=== PATIENT | female | born 1970 | race Caucasian/White ===

== ENCOUNTER 2021-09-29 14:02 | Emergency (ER) | payer MEDICARE, MEDICAID, SELFPAY ==
--- NOTE | ~2021-09-29 | CT_ITS ---
EXAMINATION: CT brain wo con EXAM DATE: 09/29/2021 14:14 INDICATION: AMS,Found Down,Last Normal X1hr Ago,Rt Side Weakness . TECHNIQUE: Spiral CT of the head was performed without contrast. Axial, coronal and sagittal images were reviewed. The dose-length product (DLP) for this examination was 681.00 mGy-cm. The exposure w as tailored according to patient size, and iterative reconstruction (ASIR) was used as additional dos e reduction technique. There is no prior study for comparison. FINDINGS: There is no acute intraparenchymal hemorrhage. Minimal microangiopathy. No evidence of intr aparenchymal brain mass lesion. No evidence of acute infarction. There is no mass effect or midline shift. The ventricles are normal in size. There are no extra-axial collections. There are no acut e calvarial fractures. The orbits are unremarkable. Soft tissue is unremarkable. The visualized sin uses and mastoid air cells are well aerated. IMPRESSION: No acute intracranial findings. As per stroke protocol, I called these results, discussed with Gio Vuong MD at 09/29/2021 14: 21 CDT. Reviewed, dictated and finalized at location A. IMPRESSION: No acute intracranial findings. As per stroke protocol, I called these results, discussed with Gio anthony MD at 09/29/2021 14:21 CDT.
--- NOTE | ~2021-09-29 | XR_ITS ---
EXAMINATION: XR chest 1V portable DATE: 09/29/2021 14:27 INDICATION: Shortness of breath. Cerebral vascular accident. TECHNIQUE: A single frontal view of the chest was obtained. COMPARISON: Chest 2 views 07/19/2014 FINDINGS: The chest demonstrates clear lungs without pneumonia, pleural effusion, or pneumothorax. Th e heart size is normal. There are changes of anterior fusion procedure in cervical spine. IMPRESSION: 1. No acute cardiopulmonary disease. Reviewed, dictated and finalized at location B.
--- NOTE | 2021-09-29 14:06 | ECG_ITS ---
Measurements Intervals [place] Rate: 70 P: 77 VA: 181 QRS: 71 QRSD: 86 T: 54 QT: 374 QTc: 406 Interpretive Statements SINUS RHYTHM BASELINE ARTIFACT NORMAL ECG NO PREVIOUS ECG AVAILABLE FOR COMPARISON Electronically Signed On 09-29-2021 17:44:39 CDT by Shayne Selby M.D.
[2021-09-29 14:13] LABS: Basophils Absolute Auto 0.05 K/mm3 (0.00-0.10); Basophils Percent Auto 0.8 % (0.0-1.0); Eosinophils Absolute Auto 0.08 K/mm3 (0.02-0.50); Eosinophils Percent Auto 1.2 % (1.0-6.0); Hematocrit 39.2 % (35.0-49.0); Hemoglobin 12.9 g/dL (12.0-15.0); Immature Granulocyte Absolute 0.01 K/mm3 (0.00-0.00); Immature Granulocyte Percent A 0.2 % (0.0-0.0); Lymphocytes Absolute Auto 1.54 K/mm3 (1.10-4.50); Lymphocytes Percent Auto 23.8 % (18.0-42.0); Mean Corpuscular HGB Conc 32.9 g/dL (32.0-36.0); Mean Corpuscular Hemoglobin 32.3 pg (27.0-31.0); Mean Platelet Volume 11.3 fl (9.2-11.8); Monocytes Absolute Auto 0.39 K/mm3 (0.10-0.90); Neutrophils Absolute Auto 4.4 K/mm3 (1.7-7.2); Platelet Count Result 169 K/mm3 (150-420); Red Cell Distribution Width 13.5 % (11.6-14.4); White Blood Count 6.5 K/mm3 (4.8-10.8)
[2021-09-29 14:15] VITALS: BP 108/74; PULSE 69; RESP 20; TEMP 36.6; O2SAT 98
[2021-09-29 14:25] LABS: Glucose Point of Care 327 mg/dl (65-105)
[2021-09-29 14:25] LABS: Partial Thromboplastin Time 20.5 SEC (23.90-30.70); Prothrombin Time 10.8 Seconds (9.50-12.10)
[2021-09-29 14:31] LABS: Alanine Aminotransferase 21 U/L (14-59); Albumin Level 3.5 g/dL (3.4-5.0); Alkaline Phosphatase 102 U/L (46-116); Anion Gap 5 mmol/L (8-16); Aspartate Amino Transferase 13 U/L (15-37); Bilirubin,Total 0.4 mg/dL (0.00-1.00); Blood Urea Nitrogen 23 mg/dL (7-18); Carbon Dioxide 31 mmol/L (21-32); Chloride 102 mmol/L (98-108); Estimated CRCL calculation 63 ml/min; Estimated Glomerular Filt Rate 55; Glucose 114 mg/dL (70-99); Osmolality Calculated 290 mOsm/kg (285-295); Potassium 4.2 mmol/L (3.5-5.1); Sodium 138 mmol/L (136-145); Total Protein 6.4 g/dL (6.4-8.2)
[2021-09-29] MEDS: SODIUM CHLORIDE 0.9% IV 500 ML 999 ML IV CONT (14:31)
[2021-09-29 14:43] LABS: Base Excess ABG 0.1 mmol/L (0-2); HCO3 ABG 24.5 mmol/L (23-29); Oxygen Saturation ABG 94.5 % (95-97); Oxyhemoglobin 87.9 % (94-100); PCO2 ABG 39.3 mmHg (35-45); PO2 ABG 69.9 mmHg (80-90); Total Hemoglobin 13.7 g/dL (12.0-18.0); pH ABG 7.41 (7.35-7.45)
[2021-09-29 14:44] LABS: Device ROOM AIR; Modified Allen's Test Pass; Site Drawn RIGHT RADIAL
[2021-09-29] MEDS: methylPREDNISolone SOD SUCC 125 MG VIAL IV PUSH (14:52)
--- NOTE | 2021-09-29 14:55 | ED.NEUROSD ---
HPI - Neuro Symptoms/Deficit General Chief Complaint: Suspected CVA Stated Complaint: AMBULANCE Time Seen by Provider: 09/29/21 14:04 Source: patient, EMS and RN notes reviewed Mode of arrival: EMS Limitations: other (mild memory loss and increasing speech difficulty and aphasia. ) History of Present Illness Onset (ago): hour(s) (1) Last Observed Normal: 13:00 Location: speech, right arm and right leg History of same: Yes Severity: moderate Quality: weak, numb and tingling Relieving factors: none Exacerbating factors: none Context: sudden onset and recent fall Associated symptoms: confusion and weakness Treatments Prior to Arrival: none and oxygen Related Data Allergies Allergy/AdvReac Type Severity Reaction Status Date / Time gabapentin Allergy Intermediate SEIZURES Verified 11/28/16 15:12 Penicillins Allergy Mild Unknown Verified 09/29/21 15:42 Iodine and Iodide Containing Allergy Difficulty Verified 09/29/21 15:42 Produc Breathing Review of Systems Review of Systems: All systems reviewed & are unremarkable except as noted in HPI and below PMFSH Past Medical History Medical History (Updated 09/29/21 @ 15:45 by Gio Vuong MD) CVA (cerebral vascular accident) Exam Const: General: cooperative, no acute distress and anxious Nutritional Appearance: obese Orientation/consciousness: oriented to person and oriented to place Limitations: no limitations HENMT: Head: normocephalic and atraumatic Ears: TM's normal bilaterally and EAC's normal General nose exam: Normal external nose present and Normal nares present Face and sinus: normal facial exam and sinuses nontender Mouth: Yes moist mucous membranes Throat: posterior oropharynx normal Eyes: General: appearance normal, both eyes and all related structures Visual Bang[place]: normal visual bangura by confrontation Periorbital: periorbital findings normal Eyelids: eyelids normal Conjunctivae: conjunctivae normal Sclera: sclerae normal Cornea: corneas normal Pupils: Equal, round and reactive pupils present and Pupils normal by confrontation EOM: EOMs intact bilaterally Neck: Neck: normal visual inspection, full ROM, no lymphadenopathy and no meningeal signs Chest: Chest palpation & inspection: normal inspection of the chest Resp: Effort & Inspection: normal respiratory effort and able to speak in complete sentences (pt speech gradually worsened in the ED, as did her mild aphasia.) Auscultation: clear to auscultation bilaterally Cardio: Jugular venous distension: no JVD Palpation: normal PMI Rate: regular rate Rhythm: regular rhythm Peripheral pulses: Peripheral pulses 2+ throughout GI: GI Palp: No abdominal tenderness and Yes Soft to palpation Auscultation: normal bowel sounds Back/Spine/Pelvis: Back: no CVA tenderness Cervical Spine: cervical ROM normal Thoracic/Lumbar Spine: thoraco-lumbar ROM normal Skin: General skin exam: normal color and turgor normal Neuro: General: oriented to person, oriented to place, no meningeal signs, CN's II-XI intact bilaterally, confusion and Unable to assess gait Cranial nerves: Yes Equal, round and reactive pupils present, Yes Normal accommodation reflex present, Yes Bilaterally intact EOM present, Yes Normal facial strength present and Yes facial symmetry Cognition (Neuro): abnormal cognition (mild memory loss and increasing speech difficulty.) Speech: aphasia Motor exam (neuro): Other motor observations present (RUL 2/5; RLL 1/5) Sensory Exam: normal sensation Extrem: General: normal to inspection, capillary refill normal, normal exam except as noted, no pedal edema and no calf tenderness Psych: Appearance: grossly normal and well kempt Mental Status: mental status grossly normal Speech and movement: Slowed speech present (Psych) Affect: Sad affect present Attitude: cooperative Thought process: Normal thought process present Thought content: Yes Normal thought content present Course Course Emergency
--- NOTE | 2021-09-29 14:57 | PC.NURSE ---
Spoke with patients sister Kristi and informed her pt will be transferred to [facility] in [place].
[2021-09-29 15:01] LABS: Add Urine Microscopic? YES; Appearance Urine Clear (Clear); Bilirubin Urine Negative (Negative); Blood Urine Negative (Negative); Color Urine Light Yellow (Yellow); Glucose Urine UA Negative (Negative); Ketones Urine Negative (Negative); Leukocyte Esterase Ur 1+ (Negative); Nitrate Urine Positive (Negative); Protein Urine Negative (Negative); Urobilinogen Urine 0.2 mg/dL (0.2-1.0); pH Urine 5.5 (5.0-8.0)
[2021-09-29 15:06] LABS: RBC Urine None seen /hpf (0-2)
[2021-09-29 15:08] LABS: Bacteria Urine 3+ /hpf; Squamous Epithelial Cell Urine None seen /hpf (Few); WBC Urine 21-30 /hpf (0-3)
[2021-09-29 15:14] LABS: Glucose Point of Care 93 mg/dl (65-105)
[2021-09-29 15:45] VITALS: BP 128/73; PULSE 75; RESP 20; O2SAT 98
--- NOTE | 2021-09-29 16:04 | PC.NURSE ---
1545 PT LEFT [facility]IA [facility] WITH NS RUNNING AT 999/HR AND TPA RUNNING AT 71.4/HR
== END 2021-09-29 15:45 | disposition short-term general hospital (02) ==
PROVIDERS: Emergency Provider Emergency Medicine; PCP Family Medicine
DX: I63.30 Cerebral infarction due to thrombosis of unspecified cerebral artery (principal)
CPT/HCPCS: 36415; 36600; 37195; 70450; 71045; 80053; 81001; 82805; 82948; 84484; 85025; 85610; 85730; 93005; 96361; 96374; 99285; J2930; J2997; J7040

== ENCOUNTER 2022-04-21 09:57 | Emergency (ER) | payer MEDICARE, MEDICAID, SELFPAY ==
--- NOTE | ~2022-04-21 | XR_ITS ---
EXAMINATION: XR humerus RT INDICATION: Right humerus pain TECHNIQUE: Two views of the right humerus are obtained on three radiographs. COMPARISON: None available FINDINGS: Bone alignment is normal. There is no fracture. There is lateral soft tissue swelling of th e arm. IMPRESSION: 1. No acute osseous abnormality. Reviewed, dictated and finalized at location B. ING MACHINE REFILLER
--- NOTE | ~2022-04-21 | CT_ITS ---
EXAMINATION: CT brain wo con INDICATION: Head injury COMPARISON: 09/29/2021 TECHNIQUE: Standard unenhanced head CT. The dose-length product (DLP) was 605.33 mGy-cm. The mA was a djusted according to patient size. Iterative reconstruction technique was employed. FINDINGS: There is no intracranial hemorrhage, acute infarction, or abnormal mass lesion. The ventric les are normal. There is no abnormal mass effect or midline shift. The craig-white matter differentiat ion is normal. The basal cisterns are patent. The orbits are normal. The paranasal sinuses, mastoids and calvarium are normal. IMPRESSION: 1. No acute intracranial abnormality. Reviewed, dictated and finalized at location B. NCIAL SERVICES REP
--- NOTE | ~2022-04-21 | XR_ITS ---
EXAMINATION: XR hip RT 2V w AP pelvis INDICATION: Right hip pain after fall TECHNIQUE: AP view the pelvis and two views of the right hip are obtained. COMPARISON: None available FINDINGS: Bone alignment is normal. There is no fracture. There is mild osteoarthritis of the hip. So ft tissue swelling is seen laterally overlying the hip. Phleboliths are noted in the pelvis. IMPRESSION: 1. Mild osteoarthritis without acute osseous abnormality. Reviewed, dictated and finalized at location B. K PILER
--- NOTE | ~2022-04-21 | XR_ITS ---
EXAMINATION: XR shoulder RT min 2V INDICATION: Right shoulder pain TECHNIQUE: Four views of the right shoulder are submitted. COMPARISON: None FINDINGS: Normal alignment. No fracture. There is mild osteoarthritis of the glenohumeral and acromio clavicular joints. Soft tissues are unremarkable. IMPRESSION: 1. Osteoarthritis without acute osseous abnormality. Reviewed, dictated and finalized at location B. MER AND BORER MACHINE OPERATOR
[2022-04-21 10:05] VITALS: BP 133/77; PULSE 114; RESP 18; TEMP 37.6; O2SAT 95
[2022-04-21 10:10] VITALS: BP 133/77; PULSE 110; RESP 18; TEMP 37.6; O2SAT 96
--- NOTE | 2022-04-21 10:22 | ED.FALL ---
HPI - Fall General Chief Complaint: Fall Stated Complaint: fell couple days ago right side of forehead tender Time Seen by Provider: 04/21/22 10:05 Source: patient Mode of arrival: ambulatory Limitations: no limitations History of Present Illness HPI Narrative: this is a 51-year-old female with a history of CVA currently on Plavix and aspirin also with history of bipolar disorder had a fall while she was at the [facility] care patient is unaware but does not think she lost consciousness is having a right-sided temporal headache with some right-sided shoulder and right-sided hip pain has good range of motion, otherwise no shortness of breath no fever chills no chest pain no flank pain no abdominal pain no prolonged down time. complaint: fall Onset (ago): day(s) Fall from: standing Fall witnessed: no Place fall occurred: [facility] Loss of consciousness: none Prolonged down time: no Symptoms prior to fall: none Context: tripped/slipped Location of injury: head and other Location of injury - extremities: Right: shoulder and thigh Severity: mild Related Data Home Medications Medication Instructions Recorded Confirmed acetaminophen 500 mg tablet 500 mg PO Q6H PRN Pain 04/21/22 04/21/22 (Acetaminophen Extra Strength) amlodipine 5 mg tablet 10 mg PO DAILY 04/21/22 04/21/22 aspirin 81 mg tablet 81 mg PO DAILY 04/21/22 04/21/22 atorvastatin 40 mg tablet 40 mg PO DAILY 04/21/22 04/21/22 buspirone 10 mg tablet 10 mg PO BID 04/21/22 04/21/22 clopidogrel 75 mg tablet 75 mg PO DAILY 04/21/22 04/21/22 docusate sodium 100 mg capsule 100 mg PO DAILY 04/21/22 04/21/22 famotidine 20 mg tablet 20 mg PO BID 04/21/22 04/21/22 fluticasone propionate 50 50 mcg intranasal DAILY 04/21/22 04/21/22 mcg/actuation nasal spray,suspension melatonin 3 mg tablet 3 mg PO HS PRN Insomnia 04/21/22 04/21/22 olanzapine 10 mg tablet 10 mg PO BID 04/21/22 04/21/22 sertraline 100 mg tablet 100 mg PO DAILY 04/21/22 04/21/22 umeclidinium 62.5 mcg/actuation 62.5 mcg inhalation DAILY 04/21/22 04/21/22 blister powder for inhalation (Incruse Ellipta) venlafaxine 150 mg 150 mg PO DAILY 04/21/22 04/21/22 capsule,extended release 24 hr Allergies Allergy/AdvReac Type Severity Reaction Status Date / Time gabapentin Allergy Intermediate SEIZURES Verified 04/21/22 10:12 Penicillins Allergy Mild Unknown Verified 04/21/22 10:12 Iodine and Iodide Containing Allergy Difficulty Verified 04/21/22 10:12 Produc Breathing Review of Systems Review of Systems: All systems reviewed & are unremarkable except as noted in HPI and below PMFSH Past Medical History Medical History CVA (cerebral vascular accident) Exam Const: General: healthy appearing Nutritional Appearance: well nourished Orientation/consciousness: patient oriented x3 Limitations: no limitations HENMT: Head: normal to inspection Face and sinus: normal facial exam Mouth: Yes Normal oral and palatal mucosa present Eyes: Conjunctivae: conjunctivae normal Pupils: Equal, round and reactive pupils present EOM: EOMs intact bilaterally Neck: Neck: normal visual inspection, no lymphadenopathy and no meningeal signs Chest: Chest palpation & inspection: normal inspection of the chest Resp: Effort & Inspection: normal respiratory effort Auscultation: clear to auscultation bilaterally Cardio: Rate: regular rate Rhythm: regular rhythm GI: Auscultation: normal bowel sounds : General: Yes bladder normal to palpation Urinary Catheter: Urinary Catheter: patent and draining Back/Spine/Pelvis: Back: no CVA tenderness Skin: General skin exam: normal color Rashes: no rashes Wounds: no wounds Neuro: General: patient oriented x3, moves all extremities, no meningeal signs and no focal motor deficits Cranial nerves: Yes Nystagmus not present Speech: normal speech Gait exam (Neuro): Normal gait present Extrem: General: normal
[2022-04-21 10:23] VITALS: BP 133/77; PULSE 114; RESP 18; TEMP 37.6; O2SAT 95
[2022-04-21] MEDS: KETOROLAC (*BKC) 60 MG/2 ML VIAL IM (11:00)
[2022-04-21 11:41] VITALS: BP 131/60; PULSE 65; RESP 14; TEMP 36.8; O2SAT 99
== END 2022-04-21 11:44 | disposition home or self-care (01) ==
PROVIDERS: Emergency Provider Emergency Medicine; PCP Family Medicine
DX: S46.911A Strain of unspecified muscle, fascia and tendon at shoulder and upper arm level, right arm, initial encounter (principal); W19.XXXA Unspecified fall, initial encounter
CPT/HCPCS: 70450; 73030; 73060; 73502; 96372; 99284; J1885

== ENCOUNTER 2023-04-22 09:01 | Emergency (ER) | payer OTHER, SELFPAY ==
[2023-04-22] VITALS (19 sets, daily range): BP systolic 87–117; BP diastolic 65–76; PULSE 70–78; RESP 18–20; TEMP 35.9–36.8; O2SAT 94–100
--- NOTE | ~2023-04-22 | XR_ITS ---
EXAMINATION: XR chest 1V portable DATE: 04/22/2023 09:58 INDICATION: Shortness of breath. Hypotensive. TECHNIQUE: A single frontal view of the chest was obtained. COMPARISON: Chest 2 view 09/29/2021 FINDINGS: There is mild atelectasis at left lung base. No pleural effusion or pneumothorax. The heart size is normal. There are changes of anterior fusion procedure in cervical spine. IMPRESSION: 1. Mild atelectasis at left lung base. Reviewed, dictated and finalized at location A. HER'S ASSISTANT
--- NOTE | 2023-04-22 09:17 | ECG_ITS ---
Measurements Intervals [place] Rate: 71 P: 55 ND: 178 QRS: 41 QRSD: 86 T: 39 QT: 399 QTc: 435 Interpretive Statements SINUS RHYTHM RSR' IN V1 OR V2, PROBABLY NORMAL VARIANT LOW QRS VOLTAGE IN PRECORDIAL LEADS BASELINE ARTIFACT- I, II, III, AVR, AVL, AVF BORDERLINE ECG COMPARED TO ECG 09/29/2021 14:18:03 NO SIGNIFICANT CHANGES Electronically Signed On 04-22-2023 15:48:50 LABORATORY SUPERVISOR by Reyes Rivera D.O.
[2023-04-22 09:30] LABS: Basophils Absolute Auto 0.06 K/mm3 (0.00-0.10); Basophils Percent Auto 0.9 % (0.0-1.0); Eosinophils Absolute Auto 0.13 K/mm3 (0.02-0.50); Eosinophils Percent Auto 1.9 % (1.0-6.0); Hematocrit 40.8 % (35.0-49.0); Hemoglobin 13.7 g/dL (12.0-15.0); Immature Granulocyte Absolute 0.02 K/mm3 (0.00-0.00); Immature Granulocyte Percent A 0.3 % (0.0-0.0); Lymphocytes Absolute Auto 1.31 K/mm3 (1.10-4.50); Mean Corpuscular HGB Conc 33.6 g/dL (32.0-36.0); Mean Corpuscular Volume 95.3 fL (78.0-102.0); Mean Platelet Volume 10.3 fl (9.2-11.8); Monocytes Absolute Auto 0.32 K/mm3 (0.10-0.90); Monocytes Percent Auto 4.6 % (2.0-11.0); Neutrophils Absolute Auto 5.1 K/mm3 (1.7-7.2); Neutrophils Percent Auto 73.3 % (50.0-70.0); Platelet Count Result 204 K/mm3 (150-420); Red Blood Count 4.28 M/mm3 (4.20-5.40); Red Cell Distribution Width 14.3 % (11.6-14.4); White Blood Count 6.9 K/mm3 (4.8-10.8)
[2023-04-22 09:44] LABS: Partial Thromboplastin Time 22.6 SEC (23.90-30.70); Prothrombin Time 10.5 Seconds (9.50-12.10)
[2023-04-22 09:48] LABS: Lactic Acid Reflex 1.4 mmol/L (0.4-2.0)
[2023-04-22] MEDS: SODIUM CHLORIDE 0.9% IV 1,000 ML 999 ML IV CONT (09:49)
[2023-04-22 09:54] LABS: Alanine Aminotransferase 29 U/L (14-59); Albumin Level 3.3 g/dL (3.4-5.0); Alkaline Phosphatase 123 U/L (46-116); Anion Gap 7 mmol/L (8-16); Aspartate Amino Transferase 15 U/L (15-37); Bilirubin,Total 0.4 mg/dL (0.00-1.00); Blood Urea Nitrogen 12 mg/dL (7-18); CRP 1.6 mg/dL (0.0-0.9); Calcium 9.1 mg/dL (8.5-10.1); Carbon Dioxide 29 mmol/L (21-32); Chloride 103 mmol/L (98-108); Estimated CRCL calculation 63 ml/min; Estimated Glomerular Filt Rate 55; Glucose 141 mg/dL (70-99); Osmolality Calculated 289 mOsm/kg (285-295); Potassium 4.3 mmol/L (3.5-5.1); Sodium 139 mmol/L (136-145); Total Protein 6.6 g/dL (6.4-8.2); Troponin I 5.4 ng/L (0.00-60.4)
[2023-04-22 11:27] LABS: Appearance Urine Clear (Clear); Bilirubin Urine Negative (Negative); Blood Urine Negative (Negative); Color Urine Light Yellow (Yellow); Glucose Urine UA Negative (Negative); Ketones Urine Negative (Negative); Leukocyte Esterase Ur 1+ LEU/UL (Negative); Nitrate Urine Positive (Negative); Protein Urine Negative (Negative); Specific Grav Ur <= 1.005 (1.010-1.020); Urobilinogen Urine 0.2 mg/dL (0.2-1.0)
[2023-04-22 11:31] LABS: Add Urine Microscopic? YES; Bacteria Urine 3+ /hpf; RBC Urine 0-2 /hpf (0-2); Squamous Epithelial Cell Urine Few /hpf (Few)
--- NOTE | 2023-04-22 11:57 | ED.DIZZY ---
HPI - Dizziness General Chief Complaint: Dizziness Stated Complaint: low BP Time Seen by Provider: 04/22/23 09:17 Source: patient and EMS Mode of arrival: ambulatory History of Present Illness HPI Narrative: this is an 52-year-old female from [facility] with complaints of lightheadedness and dizziness her blood pressure was checked at the facility it was low, the patient has not been drinking enough fluids and has been having some suprapubic tenderness with dysuria with no hematuria no fever chills, no nausea vomiting no chest pain or shortness of breath. MD elicited complaint: dizziness and lightheadedness Onset (ago): hour(s) Severity: mild Related Data Home Medications Medication Instructions Recorded Confirmed acetaminophen 500 mg tablet 500 mg PO Q6H PRN Pain 04/21/22 04/22/23 (Acetaminophen Extra Strength) amlodipine 5 mg tablet 10 mg PO DAILY 04/21/22 04/22/23 aspirin 81 mg tablet 81 mg PO DAILY 04/21/22 04/22/23 atorvastatin 40 mg tablet 40 mg PO DAILY 04/21/22 04/22/23 buspirone 10 mg tablet 15 mg PO TID 04/21/22 04/22/23 clopidogrel 75 mg tablet 75 mg PO DAILY 04/21/22 04/22/23 docusate sodium 100 mg capsule 100 mg PO BID 04/21/22 04/22/23 famotidine 20 mg tablet 20 mg PO BID 04/21/22 04/22/23 fluticasone propionate 50 50 mcg intranasal DAILY 04/21/22 04/22/23 mcg/actuation nasal spray,suspension melatonin 3 mg tablet 3 mg PO HS PRN Insomnia 04/21/22 04/22/23 olanzapine 10 mg tablet 10 mg PO BID 04/21/22 04/22/23 sertraline 100 mg tablet 150 mg PO DAILY 04/21/22 04/22/23 umeclidinium 62.5 mcg/actuation 62.5 mcg inhalation DAILY 04/21/22 04/22/23 blister powder for inhalation (Incruse Ellipta) venlafaxine 150 mg 225 mg PO DAILY 04/21/22 04/22/23 capsule,extended release 24 hr acetaminophen 300 mg-codeine 30 mg 1 tablet PO BID 04/22/23 04/22/23 tablet diclofenac sodium 1 % topical gel 2 g topical BID 04/22/23 04/22/23 ergocalciferol (vitamin D2) 1,250 1,250 mcg PO WEEKLY 04/22/23 04/22/23 mcg (50,000 unit) capsule (Vitamin D2) icosapent ethyl 1 gram capsule 2 g PO BID 04/22/23 04/22/23 (Vascepa) tiotropium bromide 18 mcg capsule 1 cap inhalation DAILY 04/22/23 04/22/23 with inhalation device (Spiriva with HandiHaler) Allergies Allergy/AdvReac Type Severity Reaction Status Date / Time gabapentin Allergy Intermediate SEIZURES Verified 04/22/23 09:55 Penicillins Allergy Mild Unknown Verified 04/22/23 09:55 Iodine and Iodide Containing Allergy Difficulty Verified 04/22/23 09:55 Produc Breathing Review of Systems Review of Systems: All systems reviewed & are unremarkable except as noted in HPI and below PMFSH Past Medical History Medical History CVA (cerebral vascular accident) Exam Const: General: healthy appearing Nutritional Appearance: well nourished Orientation/consciousness: patient oriented x3 Limitations: no limitations HENMT: Head: normal to inspection Neck: Neck: normal visual inspection, no lymphadenopathy and no meningeal signs Chest: Chest palpation & inspection: normal inspection of the chest Resp: Effort & Inspection: normal respiratory effort Auscultation: clear to auscultation bilaterally Cardio: Rate: regular rate Rhythm: regular rhythm GI: Auscultation: normal bowel sounds : Other: Suprapubic tenderness with palpation Urinary Catheter: Urinary Catheter: urine clear Back/Spine/Pelvis: Back: no CVA tenderness Skin: General skin exam: normal color Rashes: no rashes Neuro: General: patient oriented x3 and moves all extremities Cranial nerves: Yes Nystagmus not present Extrem: General: normal to inspection Psych: Mental Status: mental status grossly normal Course Course Emergency Course: patient brought in by EMS with hypotension initially her blood pressure was 87/76, the patient was given L bolus of normal saline, and repeat blood pressure w
[2023-04-22] MEDS: NITROFURANTOIN MONOHYD MACROCR 100 MG CAP PO (12:07)
--- NOTE | 2023-04-22 12:27 | PC.NURSE ---
On 04/22/23, the student, [fernando blankenship ], provided care and completed [facility] documentation on this patient. I have reviewed the student's documentation and agree with the findings.
--- NOTE | 2023-04-24 14:22 | PC.NURSE ---
final urine culture reviewed. > 100,000 E.coli found. pt prescribed macrobid at discharge. culture report shows sensitivity to this medication. no change in plan of care.
--- NOTE | 2023-04-28 13:29 | PC.NURSE ---
blood culture no growth after 5 days
== END 2023-04-22 12:29 | disposition home or self-care (01) ==
PROVIDERS: Emergency Provider Emergency Medicine
DX: I95.9 Hypotension, unspecified (principal); N30.00 Acute cystitis without hematuria; Z79.82 Long term (current) use of aspirin; Z79.02 Long term (current) use of antithrombotics/antiplatelets; Z79.51 Long term (current) use of inhaled steroids; Z86.73 Personal history of transient ischemic attack (TIA), and cerebral infarction without residual deficits
CPT/HCPCS: 36415; 71045; 80053; 81001; 83605; 84484; 85025; 85610; 85730; 86140; 87040; 87077; 87086; 87088; 87186; 93005; 96360; 96361; 99284; A9270; J7030

== ENCOUNTER 2025-05-14 07:14 | Emergency (ER) | payer MEDICARE, SELFPAY ==
[2025-05-14] VITALS (13 sets, daily range): BP systolic 145–160; BP diastolic 91–103; PULSE 98–105; RESP 16–29; TEMP 35.6; O2SAT 97–100
--- NOTE | ~2025-05-14 | XR_ITS ---
XR shoulder RT min 2V 05/14/2025 08:42 Indication: Right shoulder pain after fall Procedure: 4 views right shoulder Comparison: 04/21/2022 Findings: There is superior subluxation of the humeral head with respect to the glenoid suggesting rotator cuff tear. There is mild osteoarthritis of the acromioclavicular joint and glenohumeral joints. No acute fracture. No focal soft tissue abnormality. Impression: 1: Mild polyarticular osteoarthritis. 2: Superior subluxation of the humeral head with narrowing of the subacromial space, suspicious for rotator cuff tear. Reviewed, dictated and finalized at location I. OUT WORKER Impression: 1: Mild polyarticular osteoarthritis. 2: Superior subluxation of the humeral head with narrowing of the subacromial space, suspicious for rotator cuff tear.
--- NOTE | ~2025-05-14 | XR_ITS ---
EXAMINATION: XR chest 1V portable COMPARISON: No comparisons available. HISTORY: cva FINDINGS: The lungs are clear, no effusion. No pneumothorax. Heart is normal size. Mediastinal and hilar contours are within normal limits. Bony thorax no acute abnormality. Miscellaneous: None Impression: No acute cardiopulmonary abnormality. Reviewed, dictated and finalized at location P. LABORER Impression: No acute cardiopulmonary abnormality.
--- NOTE | ~2025-05-14 | CT_ITS ---
EXAMINATION: CT brain wo con DATE: 05/14/2025 07:26 INDICATION: Cerebrovascular accident. TECHNIQUE: Computed tomography (CT) of the head was performed without intravenous contrast. The mA was adjusted according to patient size. Iterative reconstruction technique was employed. The dose-length product was 681.00 mGy-cm. COMPARISON: Head CT 04/21/2022, brain MRI 04/29/2011 FINDINGS: There are scattered areas of low attenuation in the cerebral white matter. There is a small old infarct in left cerebellum. There is no intracranial hemorrhage, acute infarction, or abnormal intracranial mass lesion. The ventricles are normal in size. There is an old blowout fracture of medial wall of left orbit. The paranasal sinuses are clear. The mastoid air cells are normal. IMPRESSION: 1. Small old infarct in left cerebellum. 2. Mild nonspecific cerebral white matter disease, which likely represents chronic small vessel ischemic disease. Reviewed, dictated and finalized at location E. ING UP MACHINE OPERATOR IMPRESSION: 1. Small old infarct in left cerebellum. 2. Mild nonspecific cerebral white matter disease, which likely represents destination coordinator edenilson small vessel ischemic disease.
--- OUTSIDE RECORDS SUMMARY | 2025-05-14 07:17 | XMS_ITS | Encounter Summary ---
Author Organization [facility] Address [address] [place] [address] Care Team Providers Care Sales Center Associate Name Role Phone None, Provider Primary Care Provider Unavaila ble Shad Lechuga MD Primary Care Provider [phone] Encounter Details Date Type Department Care Team (Late st Contact Info) Description 11/01/[address] [facility] CONVERSION [address] [place] [address] , Generic Conversion, Social History Tobacco Use Types Packs/Day Years Used Date Smoking Tobacco: Never Assessed Comments Unknown Sex and Gender Information Value Date Recorded Sex Assigned at Not on file Legal Sex Female 11:03 PM CDT Gender Identity Not on file Sexual Orientation Not on file documented as of this encounter Plan of Treatment Not on file documented as of this encounter Visit Diagnoses Not on filedocumented in this encounter Care Teams Sales Center Associate Relationship Specialty Start Date End Date None, Provider, PCP - General 12/18/18 09/29/21 Shad Lechuga MD PCP - General FAMILY PRACTICE 09/30/21 documented as of this encounter
--- NOTE | 2025-05-14 07:18 | PC.NURSE ---
0700 STAT Stroke paged
--- NOTE | 2025-05-14 07:18 | ECG_ITS ---
Test Date: 2025-05-14 07:28:53 Measurements Intervals [place] Rate: 107 P: 63 MA: 120 QRS: 56 QRSD: 93 T: 29 QT: 341 QTc: 456 Interpretive Statements SINUS TACHYCARDIA EARLY PRECORDIAL R/S TRANSITION BASELINE WANDER- I, II, III, AVR, AVL, AVF, V4-V6 ABNORMAL ECG No previous ECG available for comparison Electronically Signed On 05-14-2025 07:53:22 LIBRARY INFORMATION TECHNICIAN by Reyes Rivera D.O.
--- NOTE | 2025-05-14 07:18 | PC.NURSE ---
0706 Pt in the door with EMS. NIH scale completed by the provider. Pt taken straight to CT scanner.
--- OUTSIDE RECORDS SUMMARY | 2025-05-14 07:25 | XMS_ITS | Encounter Summary ---
Author Organization [facility] Address [address] [place] [address] Phone Care Team Providers Care Vp Publisher Development Name Role Phone Shad Lechuga MD Primary Care Provider [phone] Win Yusuf MD PhD Unavailable [phone] Dania Rojo PREPARER SAMPLES AND REPAIRS Unavailable Unavailab le Reason for Visit * Reason Comments Medication Refill Encounter Details Date Type Department Care Team (Late st Contact Info) Description 05/20/2022 Refill [facility] - Family Medicine [facility] [address] [place] [id number] Austyn Park, AQUACULTURAL WORKER SUPERVISOR, STEWARD/STEWARDESS [facility] [address] [address] Medication Refill Social History Tobacco Use Types Packs/Day Years Used Date Smoking Tobacco: Every Day Cigarettes 0.5 40 Smokeless Tobacco: Former Chew, Snuff Alcohol Use Standard Drinks/Week Comments No 0 (1 standard drink = 0.6 oz pur e alcohol) PHQ-2 Answer Date Recorded Total Score - Questions 1-9 1 08/2020 Sexually Active Control Partners Comments Not Currently Comments No Sex and Gender Information Value Date Recorded Sex Assigned at Not on file Legal Sex Female 9:25 PM CDT Gender Identity Female 04/28/2023 11:45 PM DESIGN STUDIO CONSULTANT Sexual Orientation Straight 04/28/2023 11 :45 PM DESIGN STUDIO CONSULTANT COVID-19 Exposure Response Date Recorded In the last 10 days, have yo u been in contact with someone who was confirmed or suspected to have Coronavirus/COVID-19? No / Unsure 04/26/2022 1:20 PM DESIGN STUDIO CONSULTANT documented as of this encounter Miscellaneous Notes * Telephone Encounter - Bela Ceja RN - 05/20/2022 10:02 AM CST Duplicate - see previous request for denial/refusal GN STUDIO CONSULTANT documented in this encounter Plan of Treatment Not on file documented as of this encounter Visit Diagnoses Not on filedocumented in this encounter Additional Health Concerns Infection Onset Date Last Indicated Resolved Time COVID - 19 09/02/2024 09/02/2024 09/02/2024 9:27 PM CDT Assessment Noted Time PHQ-9 Depression Total Score: 1 08/13/19 21 3:14 PM DESIGN STUDIO CONSULTANT documented as of this encounter Care Teams Vp Publisher Development Relationship Specialty Start Date End Date Shad Lechuga MD [address] [address] PCP - General Family Medicine 07/20/18 Win Yusuf MD PhD [address] [place] [address] Neurosurgeon Neurological Surgery 05/13/19 Dania Rojo LSW ID Environmental Permitting Specialist Arm Maker 02/24/25 documented as of this encounter
--- OUTSIDE RECORDS SUMMARY | 2025-05-14 07:25 | XMS_ITS | Encounter Summary ---
Author Organization [facility] Address [address] [place] [address] Phone Care Team Providers Care Hospital Staff Pharmacist Name Role Phone Shad Lechuga MD Primary Care Provider [phone] Win Yusuf MD PhD Unavailable [phone] Dania Rojo FIRER TUNNEL KILN Unavailable Unavailab le Reason for Visit * Reason Comments Medication Refill Encounter Details Date Type Department Care Team (Late st Contact Info) Description 07/08/2021 Refill [facility] [address] [place] [address] Shad Lechuga MD #[address] [address] Medication Refill Social History Tobacco Use Types [...] CDT Gender Identity Female 04/28/2023 11:45 PM HOME INSURANCE AGENT Sexual Orientation Straight 04/28/2023 11 :45 PM HOME INSURANCE AGENT documented as of this encounter Miscellaneous Notes * Telephone Encounter - Bela Ceja RN - 07/08/2021 12:22 PM CST PDMP 05/07/21 - follow up 07/13/21 Medication failed the protocol, provider to review and approve the medication order if appropriate. Requested Prescriptions Pending Prescriptions Disp Refills diazePAM (VALIUM) 5 MG Tablet [Pharmacy Med Name: DIAZEPAM 5 MG TABLET] 60 Tablet 0 Sig: TAKE (1) TABLET BY MOUTH TWICE DAILY NEEDED FOR ANXIETY Not Delegated - Off Protocol Failed - 07/08/2021 12:21 PM Failed - This refill cannot be delegated Failed - Active on medication list Passed - Visit with relevant provider in past 12 months or upcoming 90 days Recent Visits Date Type Provider Dept 05/05/21 Office Visit [facility] APRN, [facility] 02/17/21 Office Visit [facility] APRN, [facility] 11/13/20 Office Visit [facility] APRN, [facility] 10/13/20 Telemedicine Shad Lechuga MD [facility] 08/13/20 Office Visit [facility] APRN, [facility] 08/04/20 Office Visit [facility] APRN, DMITRI[facility] Showing recent visits within past 365 days and meeting all other requirements Future Appointments Date Type Provider Dept 07/13/21 Appointment Shad Lechuga MD [facility] Showing future appointments within next 90 days and meeting all other requirements INSURANCE AGENT documented in this encounter Plan of Treatment Not on file documented as of this encounter Visit Diagnoses Not on filedocumented in this encounter Additional Health Concerns Infection Onset Date Last Indicated Resolved Time COVID - 19 09/02/2024 09/02/2024 09/02/2024 9:27 PM CDT Assessment Noted Time PHQ-9 Depression Total Score: 1 08/13/19 3:14 PM HOME INSURANCE AGENT documented as of this encounter Care Teams Hospital Staff Pharmacist Relationship Specialty Start Date End Date Shad Lechuga MD #[address] [address] PCP - General Family Medicine 07/20/18 Win Yusuf MD PhD [address] [place] [address] Neurosurgeon Neurological Surgery 05/13/19 Dania Rojo LSW MD Quality Manager Asbestos Shingle Roofer 02/24/25 documented as of this encounter
--- OUTSIDE RECORDS SUMMARY | 2025-05-14 07:25 | XMS_ITS | Clinical Summary ---
Author Organization [facility] Address [address] [place] [address] Care Team Providers Care Chemical Process Analyst Name Role Phone Shad Lechuga MD Primary Care Provider [phone] Allergies Active Allergy Reactions Criticality Noted Date Comments Gabapentin Seizure High 12/17/2018 Iodinated Contrast Media Other (see comment) 08/30/2018 Blood pressure dropped Penicillins Anaphylaxis High 12/17/2018 Medications aspirin EC (ASPIRIN EC) 81 MG tabletIndicatio ns:Anticoagulan t Therapy Take 81 mg by mouth daily. Active atorvastatin 40 MG tabletIndicatio ns:Hypercholest erolemia Take 40 mg by mouth daily. Indications: High Amount of Cholesterol in the Blood Active venlafaxine XR 150 MG 24 hr capsuleIndicati ons:PTSD Take 150 mg by mouth daily. Active fluticasone propionate 50 MCG/ACT nasal spray 1 spray by Nasal route 2 (two) times daily as needed for Rhinitis or Allergies. Active trazodone 50 MG tablet Take 50 mg by mouth nightly as needed for Sleep. Active albuterol sulfate HFA (VENTOLIN HFA) 108 (90 Base) MCG/ACT inhaler Inhale 2 puffs into the lungs 2 (two) times daily as needed. 9 Active hydrocodone-coco taminophen 5-325 MG tablet Take 1 tablet by mouth every 4 (four) hours as needed. 20 tablet 9 Active docusate sodium 250 MG capsuleIndicati ons:Constipatio n Take 1 capsule (250 mg total) by mouth 2 (two) times daily. 60 capsule 9 Active busPIRone 10 MG tablet Take 10 mg by mouth 2 (two) times daily. Active Umeclidinium Rosalia 62.5 MCG/INH AEROSOL POWDER, BREATH ACTIVATED Inhale 1 puff into the lungs daily. Active sertraline 50 MG tablet Take 50 mg by mouth daily. Active OLANZapine 10 MG tablet Take 10 mg by mouth 2 (two) times a day. Active famotidine 20 MG tablet Take 20 mg by mouth 2 (two) times daily. Active tiZANidine 4 MG tablet Take 4 mg by mouth 2 (two) times daily as needed. Active Active Problems Problem Noted Date Diagnosed Date Expressive aphasia 09/30/2021 Received intravenous tissue plasminogen activator (tPA) in emergency department 09/30/2021 Stage 3 chronic kidney disease 09/30/2021 Obesity due to excess calories 09/30/2021 CVA (cerebral vascular accident) 09/29/2021 S/P laparoscopic hysterectomy 12/20/2018 Family History Relation Status Comments Father Mother Social History Tobacco Use Types Packs/Day Years Used Date Smoking Tobacco: Every Day Cigarettes 0.3 35 Smokeless Tobacco: Current Alcohol Use Standard Drinks/Week Comments No 0 (1 standard drink = 0.6 oz pur e alcohol) AUDIT-C Answer Date Recorded Frequency of Alcohol Consumption Never 12/17/2018 Average Number of Drinks Not on file 019 Frequency of Binge Drinking Not on file 01/2019 Comments Unknown Sex and Gender Information Value Date Recorded Sex Assigned at Not on file Legal Sex Female 11:03 PM CDT Gender Identity Not on file Sexual Orientation Not on file Last Filed Vital Signs Vital Sign Reading Time Taken Comments Blood Pressure 112/72 10/04/2021 11:59 AM CDT Pulse 75 10/04/2021 11:59 AM CDT Temperature 37.1 C (98.8 F) 10/04/2021 8:08 AM CDT Respiratory Rate 14 10/04/2021 11:59 AM CDT Oxygen Saturation 96% 10/04/2021 11:59 AM CDT Inhaled Oxygen Concentration - - Weight 84.5 kg (186 lb 4.6 oz) 10/02/2021 6:26 A M CDT Height 172.7 cm (5' 8) 09/29/2021 5:00 PM CDT Body Mass Index 28.33 09/29/2021 5:00 PM CDT Plan of Treatment Health Maintenance Due Date Last Done Comments Cervical Cancer Screening Pap Smear (Age 30 to 64) Every 3 Years 1968 Colorectal Cancer Screening Colonoscopy (10 Years) 1968 Annual Physical 10/13/1971 Hepatitis C 1986 DTaP, Tdap and Td Vaccines (1 - Tdap) 10/13/1987 Hepatitis B Vaccines (1 of 3 - 19+ 3-dose series) 10/13/1987 Mammogram Screening 2008 Zoster Vaccines (1 of 2) 2018 Cervical Cancer Screening Pap with HPV Testing (Age 30 to 64) Every 5 Years 05/31/2022 05/31/2017 Cervical Cancer Screening with HPV 05/31/2022 COVID-19 Vaccine (3 - 2024- season) 2025 01/28/2021, 12/30/2020 Influenza Adult (#1) 2025 03/30/2021, 03/19/2020, 03/07/2019, Additional history exists Pneumococcal Vaccine: 50+ Years (3 of 3 - PCV20 or PCV21) 07/28/2026 07/28/2021, 03/19/2020 Hepatitis A Vaccines Aged Out No long er eligible based on patient's age to complete this topic Meningococcal B Vaccine Aged Out No l onger eligible based on patient's age to complete this topic Meningococcal Vaccine Aged Out No abigail ran eligible based on patient's age to complete this topic RSV Immunizations Under 20 Months Aged Out No longer eligible based on patient's age to complete this topic Goals Goal Patient Goal Type Associated Problems Recent Progress Patient-Stated? Author Safety Patient/family will have appropriate support at home upon discharge Charissa Romeo, buyer assistant Procedure Name Priority Date/Time Associated Diagnosis Comments HPV MRNA E6/E7 Routine 05/31/2017 5:04 PM CENTRIFUGAL STATION OPERATOR from Last 3 Months or Most Recently Relevant to Health Maintenance Results * HPV MRNA E6/E7 (05/31/2017 5:04 PM CENTRIFUGAL STATION OPERATOR) HPV MRNA E6/E7 Not Detected NOT DETECTED 06/08/2017 7:13 PM CENTRIFUGAL STATION OPERATOR [facility] KEVIN ABR Comment: This test was performed using the APTIMA(R) HPV Assay([employer]This assay detects E6/E7 viral messenger RNA (mRNA)from 14 high-risk HPV types (16,18,31,33,35,39,45,51,52,56,58,59,66,68).For additional information please refer to:http://education.Answerology/faq/QAJ839j7(This link is being provided for informational/educational purposes only.)Test Performed by Cheyenne Gaston1-4 [facility],[address] [place] [id number] Rivera M.D., Ph.D., Director of [phone], [place] [id number] FLUID SPECIMEN / Unknown 05/31/2017 5:04 PM CENTRIFUGAL STATION OPERATOR 05/31/2017 5:04 PM CENTRIFUGAL STATION OPERATOR us Generic Conversion Md PRASAD PATHOLOGY/CYTOLOGY MARYBEL CAPPS Final Result [facility] [address] [address], [place] [phone] from Last 3 Months or Most Recently Relevant to Health Maintenance Insurance MEDICARE MEDICAID [facility] Advance Directives Documents on File Type Date Recorded Patient Consumer Safety Inspector Expl anation Advance Directives and Living Will 03/06/2019 12:00 AM ADVANCED DIRECTIVES * Full Code (Latest Code Status on File) Date Activated Date Inactivated Comments 09/29/2021 5:01 PM 10/04/2021 5:18 PM * Full Code Date Activated Date Inactivated Comments 12/20/2018 2:05 PM 12/21/2018 10:58 AM Care Teams Chemical Process Analyst Relationship Specialty Start Date End Date Shad Lechuga MD PCP - General FAMILY PRACTICE 09/30/21
--- OUTSIDE RECORDS SUMMARY | 2025-05-14 07:25 | XMS_ITS | Encounter Summary ---
Author Organization [facility] Address [address] [place] [address] Phone Care Team Providers Care Copy Center Specialist Name Role Phone Shad Lechuga MD Primary Care Provider [phone] Win Yusuf MD PhD Unavailable [phone] Dania Rojo BAG REPAIRER Unavailable Unavailab le Reason for Visit * Reason Onset Date Comments Medication Refill Medication Refill 01/18/2021 Encounter Details Date Type Department Care Team (Late st Contact Info) Description 12/24/2020 Refill [facility] [address] [place] [address] Shad Lechuga MD #[address] [address] Medication Refill; Medication Refill Social History Tobacco Use Types Packs/Day Years Used Date Smoking Tobacco: Every Day Cigarettes Smokeless Tobacco: Former Chew, Snuff Alcohol Use [...] CDT Gender Identity Female 04/28/2023 11:45 PM ABSTRACT WRITER Sexual Orientation Straight 04/28/2023 11 :45 PM ABSTRACT WRITER documented as of this encounter Miscellaneous Notes * Telephone Encounter - Bela Ceja RN - 12/25/2020 10:34 AM CDT [place] PD[place] 11/14/20 [place], 11/19/20 diazepam Medication failed the protocol, provider to review and approve the medication order if appropriate. Requested Prescriptions Pending Prescriptions Disp Refills HYDROcodone-acetaminophen (NORCO) 7.5-325 MG Tablet [Pharmacy Med Name: HYDROCODONE-APAP 7.5-325MG]120 Tablet 0 Sig: TAKE (1) TABLET BY MOUTH EVERY 6 HOURS NEEDED FOR MODERATE/SEVERE PAIN [facility] Not Delegated - Analgesics: Opioid Agonist Combinations Failed - 12/25/2020 10:33 AM Failed - This refill cannot be delegated Passed - Valid encounter within last 6 months Past Office Visits Recent Outpatient Visits 1 month ago Schizophrenia, unspecified type (HCC) [facility] - Family Medicine - Austyn Crockett APN, DMITRIY 2 months ago SOB (shortness of breath) [facility] - Shad Lopez MD 4 months ago Urinary retention [facility] - Family Medicine - Austyn Crockett APN, CNP 4 months ago Chest pain, unspecified type [facility] - Family Medicine - Austyn Crockett APN, CNP 9 months ago Chronic pain syndrome [facility] Family Medicine - Austyn Crockett APN, DMITRIY Upcoming Appointments Future Appointments In 1 week [facility]OT[facility] Nuclear Medicine, [facility] In 1 week SAHCNM2 [facility] Nuclear Medicine, [facility] In 1 week SAHCSTRESSLAB1 [facility] Cardiology Stress, [facility] In 1 week [facility]NM2 [facility] Nuclear Medicine, [facility] In 1 week [facility]CMAM1 [facility] Mammography, [facility] In 1 month [facility] APN, DMITRIY [facility] GLAZIER STRUCTURAL GLASS - Recent and Past Visits Recent Visits Date Type Provider Dept 11/13/20 Office Visit [facility] APN, DMITRIY [facility] 10/13/20 Telemedicine [facility] 08/13/20 Office Visit [facility] APN, DMITRIY [facility] 08/04/20 Office Visit [facility] APN, DMITRIY [facility] 03/19/20 Office Visit [facility] APN, DMITRIY [facility] 12/11/19 Office Visit [facility] APN, DMITRIY [facility] Showing recent visits within past 460 days with a meds authorizing provider and meeting all other requirements Future Appointments Date Type Provider Dept 02/16/21 Appointment [facility] APN, CNP [facility] Showing future appointments within next 90 days with a meds authorizing provider and meeting all other requirements diazePAM (VALIUM) 5 MG Tablet [Pharmacy Med Name: DIAZEPAM 5 MG TABLET] 60 Tablet 0 Sig: TAKE (1) TABLET BY MOUTH TWICE DAILY NEEDED FOR ANXIETY There is no refill protocol information for this order documented in this encounter Plan of Treatment Not on file documented as of this encounter Visit Diagnoses Diagnosis Chronic pain syndrome Hallucinations documented in this encounter Additional Health Concerns Infection Onset Date Last Indicated Resolved Time COVID - 19 09/02/2024 09/02/2024 09/02/2024 9:27 PM CDT Assessment Noted Time PHQ-9 Depression Total Score: 1 08/13/19 21 3:14 PM ABSTRACT WRITER documented as of this encounter Care Teams Copy Center Specialist Relationship Specialty Start Date End Date Shad Lechuga MD #[address] [address] PCP - General Family Medicine 07/20/18 Win Yusuf MD PhD [address] [place] [address] Neurosurgeon Neurological Surgery 05/13/19 Dania Rojo LSW [place] Jewelry Department Supervisor Survey Operations Director 02/24/25 documented as of this encounter
--- OUTSIDE RECORDS SUMMARY | 2025-05-14 07:25 | XMS_ITS | Encounter Summary ---
Author Organization [facility] Address [address] [place] [address] Phone Care Team Providers Care Consulting Practice Manager Name Role Phone Shad Lechuga MD Primary Care Provider [phone] Win Yusuf MD PhD Unavailable [phone] Dania Rojo DISPLAY DEPARTMENT MANAGER Unavailable Unavailab le Reason for Visit * Reason Comments Medication Refill Encounter Details Date Type Department Care Team (Late st Contact Info) Description 03/02/2021 Refill [facility] [address] [place] [id number] Shad Lechuga MD #[address] [address] Medication Refill Social History Tobacco Use Types [...] CDT Gender Identity Female 04/28/2023 11:45 PM ABSORPTION PLANT OPERATOR Sexual Orientation Straight 04/28/2023 11 :45 PM ABSORPTION PLANT OPERATOR COVID-19 Exposure Response Date Recorded In the last month, have you been in contact with someone who was confirmed or suspected to have Coronavirus / COVID-19? No / Unsure 03/04/2021 9:12 AM CDT documented as of this encounter Functional Status documented as of this encounter Mental Status * Question Answer Entry Date Author BP 106/64 03/04/2021 10:05 AM CDT ShineAdelina anthony Temp 97.3 03/04/2021 10:05 AM CDT Adelina Riojas Pulse 78 03/04/2021 10:05 AM CDT Adelina Riojas SpO2 99 03/04/2021 10:05 AM CDT Adelina Riojas documented in this encounter Miscellaneous Notes * Telephone Encounter - Zita Anderson RN - 03/02/2021 1:44 PM CDT Per MEDD last dispensed on 12/25/20 Medication failed the protocol, provider to review and approve the medication order if appropriate. Requested Prescriptions Pending Prescriptions Disp Refills diazePAM (VALIUM) 5 MG Tablet [Pharmacy Med Name: DIAZEPAM 5 MG TABLET] 60 Tablet Sig: TAKE (1) TABLET BY MOUTH TWICE DAILY NEEDED FOR ANXIETY There is no refill protocol information for this order documented in this encounter Plan of Treatment Not on file documented as of this encounter Visit Diagnoses Diagnosis Hallucinations documented in this encounter Additional Health Concerns Infection Onset Date Last Indicated Resolved Time COVID - 19 09/02/2024 09/02/2024 09/02/2024 9:27 PM CDT Assessment Noted Time PHQ-9 Depression Total Score: 1 08/13/19 3:14 PM ABSORPTION PLANT OPERATOR documented as of this encounter Care Teams Consulting Practice Manager Relationship Specialty Start Date End Date Shad Lechuga MD #[address] [address] PCP - General Family Medicine 07/20/18 Win Yusuf MD PhD [address] [place] [address] Neurosurgeon Neurological Surgery 05/13/19 Dania Rojo LSW [place] Padded Products Inspector Trimmer Child & Adolescent Psychiatrist 02/24/25 documented as of this encounter
--- OUTSIDE RECORDS SUMMARY | 2025-05-14 07:25 | XMS_ITS | Encounter Summary ---
Author Organization [facility] Address [address] [place] [address] Phone Care Team Providers Care Park Worker Name Role Phone Shad Lechuga MD Primary Care Provider [phone] Win Yusuf MD PhD Unavailable [phone] Dania Rojo CYANIDE CASE HARDENER Unavailable Unavailab le Reason for Visit * Reason Comments Medication Refill Encounter Details Date Type Department Care Team (Late st Contact Info) Description 02/05/2021 Refill [facility] [address] [place] [phone] Shad Lechuga MD #[address] [address] Medication Refill Social History Tobacco Use Types [...] CDT Gender Identity Female 04/28/2023 11:45 PM PERCUSSION INSTRUMENT TUNER Sexual Orientation Straight 04/28/2023 11 :45 PM PERCUSSION INSTRUMENT TUNER COVID-19 Exposure Response Date Recorded In the last month, have you been in contact with someone who was confirmed or suspected to have Coronavirus / COVID-19? No / Unsure 01/07/2021 8:39 AM CDT documented as of this encounter Miscellaneous Notes * Telephone Encounter - Bela Ceja RN - 02/08/2021 8:39 AM CDT [place] 12/25/20 Medication failed the protocol, provider to review and approve the medication order if appropriate. Requested Prescriptions Pending Prescriptions Disp Refills HYDROcodone-acetaminophen (NORCO) 7.5-325 MG Tablet [Pharmacy Med Name: HYDROCODONE-APAP 7.5-325MG]120 Tablet 0 Sig: TAKE (1) TABLET BY MOUTH EVERY 6 HOURS NEEDED FOR MODERATE/SEVERE PAIN [facility] Not Delegated - Analgesics: Opioid Agonist Combinations Failed - 02/08/2021 8:39 AM Failed - This refill cannot be delegated Passed - Valid encounter within last 6 months Past Office Visits Recent Outpatient Visits 2 months ago Schizophrenia, unspecified type (HCC) [facility] - Austyn Crockett APN, HEATING AND COOLING TECHNICIAN 3 months ago SOB (shortness of breath) [facility] - Shad Lopez MD 5 months ago Urinary retention [facility] - Austyn Crockett APN, HEATING AND COOLING TECHNICIAN 6 months ago Chest pain, unspecified type [facility] - Austyn Crockett APN, HEATING AND COOLING TECHNICIAN 10 months ago Chronic pain syndrome [facility] - Austyn Crockett APN, HEATING AND COOLING TECHNICIAN Upcoming Appointments Future Appointments In 1 week [facility] Park APN, HEATING AND COOLING TECHNICIAN [facility] WINDER [facility] - Recent and Past Visits Recent Visits Date Type Provider Dept 11/13/20 Office Visit [facility] APN, CNP [facility] 10/13/20 Telemedicine Shad Lechuga MD [facility] 08/13/20 Office Visit [facility] APN, CNP [facility] 08/04/20 Office Visit [facility] APN, [facility] 03/19/20 Office Visit [facility] APN, DMITRIY [facility] 12/11/19 Office Visit [facility] APN, DMITRIY [facility] Showing recent visits within past 460 days with a meds authorizing provider and meeting all other requirements Future Appointments Date Type Provider Dept 02/17/21 Appointment [facility] APN, DMITRIY [facility] Showing future appointments within next 90 days with a meds authorizing provider and meeting all other requirements documented in this encounter Plan of Treatment Not on file documented as of this encounter Visit Diagnoses Diagnosis Chronic pain syndrome documented in this encounter Additional Health Concerns Infection Onset Date Last Indicated Resolved Time COVID - 19 09/02/2024 09/02/2024 09/02/2024 9:27 PM CDT Assessment Noted Time PHQ-9 Depression Total Score: 1 08/13/19 3:14 PM PERCUSSION INSTRUMENT TUNER documented as of this encounter Care Teams Park Worker Relationship Specialty Start Date End Date Shad Lechuga MD #[address] [address] PCP - General Family Medicine 07/20/18 Win Yusuf MD PhD [address] [place] [address] Neurosurgeon Neurological Surgery 05/13/19 Dania Rojo LSW [place] Cork Insulation Installer Retail Custodial Associate 02/24/25 documented as of this encounter
--- OUTSIDE RECORDS SUMMARY | 2025-05-14 07:25 | XMS_ITS | Encounter Summary ---
Author Organization [facility] Address [address] [place] [address] Phone Care Team Providers Care Dairy Farm Operator Name Role Phone Shad Lechuga MD Primary Care Provider [phone] Win Yusuf MD PhD Unavailable [phone] Dania Rojo NEMATOLOGY TEACHER Unavailable Unavailab le Reason for Referral * Consult, Test & Initiate Treatment (Less Than 1 Week) - Closed Specialty Diagnoses / Procedures Referred By Shad newton Referred To Contact Diagnoses Chronic pain syndrome Shad Lechuga MD #2 [facility] [address] [place] [address] Phone: tel: fax: Referral ID Status Reason Start Date Expiration Date Visits Re quested Visits Authorized [id number] Closed 05/18/2021 1 1 Scheduling Instructions Misty is being referred to [facility], [facility], [facility], [facility] Pain [facility] or other specialist in patient's insurance network for chronic pain syndrome. See below for Misty's current medications, allergies and problem list. CURRENT MEDS: Current Outpatient Medications: amLODIPine (NORVASC) 5 MG Tablet, Take 1 Tablet by mouth daily., Disp: 90 Tablet, Rfl: 3 aspirin EC (ASPIRIN LOW DOSE) 81 MG Tablet Delayed Response, Take 1 Tab by mouth daily., Disp: 90 Tab, Rfl: 2 atorvastatin (LIPITOR) 40 MG Tablet, Take 1 Tablet by mouth every evening., Disp: 90 Tablet, Rfl: 3 docusate sodium (COLACE) 100 MG Capsule, Take 1 Capsule by mouth 2 times daily., Disp: 180 Capsule, Rfl: 3 famotidine (PEPCID) 20 MG Tablet, Take 1 Tab by mouth 2 times daily., Disp: 180 Tab, Rfl: 3 fluticasone (FLONASE) 50 MCG/ACT Suspension, 1-2 Sprays by Nasal route daily. Use in each nostril as directed., Disp: 1 Bottle, Rfl: 3 Incontinence Supply Disposable (Incontinence Brief Medium) Misc, Use as directed for incontinence. DX: R32, Disp: 100 Each, Rfl: 3 Misc. Devices Misc, Supply and instructions: Monthly COVID-19 PCR test, Disp: 1 Each, Rfl: 11 naproxen (NAPROSYN) 500 MG Tablet, Take 1 Tab by mouth 2 times daily (with meals)., Disp: 180 Tab, Rfl: 2 OLANZapine (ZYPREXA) 10 MG Tablet, Take 2 Tablets by mouth nightly., Disp: 60 Tablet, Rfl: 5 omeprazole (PriLOSEC) 40 MG CAPSULE DELAYED RELEASE, Take 1 Capsule by mouth 2 times daily., Disp: 28 Capsule, Rfl: 0 sertraline (ZOLOFT) 50 MG Tablet, Take 50 mg by mouth daily., Disp: , Rfl: venlafaxine (EFFEXOR-XR) 150 MG CAPSULE SR 24 HR, Take 1 Cap by mouth daily., Disp: 90 Cap, Rfl: 2 No current facility-administered medications for this visit. ALLERGIES: -- Contrast [Iodinated Diagnostic Agents] -- Other (see Comments) -- Blood pressure dropped -- Gabapentin -- Other (see Comments) -- seizures -- Penicillins -- Anaphylaxis PROBLEM LIST: Patient Active Problem List: Hypertension Hepatitis C History of tobacco abuse Rheumatoid arthritis involving multiple sites (HCC) Chronic neck pain History of DVT (deep vein thrombosis) Neuropathy Facial droop History of fusion of cervical spine Attention deficit hyperactivity disorder (ADHD), combined type Impaired functional mobility, balance, gait, and endurance Chest pain Ovarian cancer (HCC) Stenosis of carotid artery Pulmonary emphysema (HCC) Hepatitis C antibody test positive Abnormal Doppler ultrasound of carotid artery Vitamin D insufficiency Hyperlipidemia Elevated liver enzymes Cerebrovascular accident (HCC) Myocardial infarction (HCC) Seasonal allergies Gastroesophageal reflux disease Chronic pain syndrome Tinnitus of both ears Chronic joint pain SOB (shortness of breath) R MARKER Reason for Visit * Reason Comments Medication Refill Encounter Details Date Type Department Care Team (Late st Contact Info) Description 05/18/2021 Refill [facility] [address] [place] [address] Shad Lechuga MD #[address] [address] Medication Refill Social History Tobacco Use Types [...] CDT Gender Identity Female 04/28/2023 11:45 PM UPPER MARKER Sexual Orientation Straight 04/28/2023 11 :45 PM UPPER MARKER COVID-19 Exposure Response Date Recorded In the last month, have you been in contact with someone who was confirmed or suspected to have Coronavirus / COVID-19? No / Unsure 05/13/2021 11:46 AM UPPER MARKER documented as of this encounter Miscellaneous Notes * Telephone Encounter - Shad Lechuga MD - 05/18/2021 1:44 PM UPPER MARKER Pended order signed. If she is having withdrawal symptoms, tell her to go to the ER. Thanks! R MARKER * Telephone Encounter - Bela Ceja RN - 05/18/2021 1:16 PM CST Called to talk to patient. Before I could give her the message she asked for some Tramadol since you're not giving her the Hydrocodone. I notified her regarding your PCP note below. She said she had two Tramadol pills left over from her last Rx. Last Rx was in 2019. She stated she should have told you she had found these and took them when she was in the office. She is willing to try pain management. She also states she is having withdrawal. I reiterated to her that she would need to go to the ER. Patient verbalized understanding. Pain management referral pended - please complete and sign as appropriate. R MARKER * Telephone Encounter - Shad Lechuga MD - 05/18/2021 11:31 AM UPPER MARKER Let her know that my office will no longer be prescribing her controlled substances. If she needs pain medication, I can refer her to pain management. If she has any withdrawal symptoms, tell her to go to the ER. Thanks! R MARKER * Telephone Encounter - Bela Ceja RN - 05/18/2021 11:24 AM CST PDMP 03/27/21 Medication failed the protocol, provider to review and approve the medication order if appropriate. Requested Prescriptions Pending Prescriptions Disp Refills HYDROcodone-acetaminophen (NORCO) 7.5-325 MG Tablet [Pharmacy Med Name: HYDROCODONE-APAP 7.5-325MG]120 Tablet 0 Sig: TAKE (1) TABLET BY MOUTH EVERY 6 HOURS NEEDED FOR MODERATE/SEVERE PAIN healthfinch Not Delegated - Analgesics: Opioid Agonist Combinations Failed - 05/18/2021 11:24 AM Failed - This refill cannot be delegated Passed - Valid encounter within last 6 months Past Office Visits Recent Outpatient Visits 1 week ago Amphetamine abuse (HCC) [facility] - Family [facility] - Austyn Crockett APRN, CNP 3 months ago Left sided abdominal pain [facility] - Austyn Crockett APRN, CNP 6 months ago Schizophrenia, unspecified type (HCC) [facility] - Austyn Crockett APRN, CNP 7 months ago SOB (shortness of breath) [facility] - Shad Lopez MD 9 months ago Urinary retention [facility] - Austyn Crockett APRN, CNP Upcoming Appointments Future [facility]ments In 3 days [facility], [facility] In 3 weeks Shad Lechuga MD [facility] Medical [facility] [place], [facility] FIELD TRAFFIC INVESTIGATOR - Recent and Past Visits Recent Visits Date Type Provider Dept 05/05/21 Office Visit Austyn Park APRN, DMITRIY [facility] 02/17/21 Office Visit Austyn Park APRN, DMITRIY [facility] 11/13/20 Office Visit Austyn Park APRN, DMITRIY [facility] 10/13/20 Telemedicine Shad Lechuga MD [facility] 08/13/20 Office Visit Austyn Park APRN, DMITRIY [facility] 08/04/20 Office Visit Austyn Park APRN, DMITRIY [facility] 03/19/20 Office Visit Austyn Park APRN, VAC PRESS OPERATOR [facility] Showing recent visits within past 460 days with a meds authorizing provider and meeting all other requirements Future Appointments Date Type Provider Dept 06/09/21 Appointment Shad Lechuga MD [facility] Showing future appointments within next 90 days with a meds authorizing provider and meeting all other requirements R MARKER documented in this encounter Plan of Treatment Scheduled Referrals Name Type Priority Associated Diagnoses Order Schedule EXTERNAL PAIN REFERRAL Outpatient Referral Less Than 1 week Chronic pain syndrome Expected: 05/18/2021 (Approximate), Expires: 05/18/2022 documented as of this encounter Visit Diagnoses Diagnosis Chronic pain syndrome- Primary documented in this encounter Additional Health Concerns Infection Onset Date Last Indicated Resolved Time COVID - 19 09/02/2024 09/02/2024 09/02/2024 9:27 PM CDT Assessment Noted Time PHQ-9 Depression Total Score: 1 03/03/20 21 3:14 PM UPPER MARKER documented as of this encounter Care Teams Dairy Farm Operator Relationship Specialty Start Date End Date Shad Lechuga MD #[address] [address] PCP - General Family Medicine 07/20/18 Win Yusuf MD PhD [address] [place] [address] Neurosurgeon Neurological Surgery 05/13/19 Dania Rojo, FADIA ID Resaw Feeder Scoring Machine Operator 02/24/25 documented as of this encounter
--- OUTSIDE RECORDS SUMMARY | 2025-05-14 07:25 | XMS_ITS | Encounter Summary ---
Author Organization [facility] Address [address] [place] [address] Phone Care Team Providers Care Cyber Security Administrator Name Role Phone Shad Lechuga MD Primary Care Provider [phone] Win Yusuf MD PhD Unavailable [phone] Dania Rojo TELESALES SUPERVISOR Unavailable Unavailab le Reason for Visit * Reason Comments Medication Refill Encounter Details Date Type Department Care Team (Late st Contact Info) Description 09/17/2022 Refill [facility] [address] [place] [address] Shad Lechuga MD #[address] [address] Medication Refill Social History Tobacco Use Types [...] CDT Gender Identity Female 04/28/2023 11:45 PM DRILL PRESS OPERATOR NUMERICAL CONTROL Sexual Orientation Straight 04/28/2023 11 :45 PM DRILL PRESS OPERATOR NUMERICAL CONTROL documented as of this encounter Miscellaneous Notes * Telephone Encounter - Ratna Aragon RN - 09/19/2022 9:30 AM CDT PDMP 08/25/22 Medication failed the protocol, provider to review and approve the medication order if appropriate. Requested Prescriptions Pending Prescriptions Disp Refills acetaminophen-codeine (TYLENOL #3) 300-30 MG Tablet [Pharmacy Med Name: ACETAMINOPHEN-COD #3 TABLET] 30 Tablet Sig: TAKE (1) TABLET BY MOUTH DAILY Not Delegated - Opioid Combinations Protocol Failed - 09/17/2022 1:11 PM Failed - This refill cannot be delegated Passed - Visit with relevant provider in past 12 months or upcoming 90 days Recent Visits Date Type Provider Dept 07/27/22 Office Visit Shad Lechuga MD [facility] 04/26/22 Office Visit Austyn Park APRN, CNP [facility] 11/25/21 Office Visit Austyn Park APRN, DMITRIY [facility] Showing recent visits within past 365 days and meeting all other requirements Future Appointments No visits were found meeting these conditions. Showing future appointments within next 90 days and meeting all other requirements documented in this encounter Plan of Treatment Not on file documented as of this encounter Visit Diagnoses Diagnosis Chronic pain syndrome documented in this encounter Additional Health Concerns Infection Onset Date Last Indicated Resolved Time COVID - 19 09/02/2024 09/02/2024 09/02/2024 9:27 PM CDT Assessment Noted Time PHQ-9 Depression Total Score: 1 08/13/19 21 3:14 PM DRILL PRESS OPERATOR NUMERICAL CONTROL documented as of this encounter Care Teams Cyber Security Administrator Relationship Specialty Start Date End Date Shad Lechuga MD #[address] [address] PCP - General Family Medicine 07/20/18 Win Yusuf MD PhD [address] [place] [address] Neurosurgeon Neurological Surgery 05/13/19 Dania Rojo LSW [place] Disk Recordist Continuous Improvement Coordinator 02/24/25 documented as of this encounter
--- OUTSIDE RECORDS SUMMARY | 2025-05-14 07:25 | XMS_ITS | Encounter Summary ---
Author Organization [facility] Address [address] [place] [address] Phone Care Team Providers Care Heat Treating Bluer Name Role Phone Shad Lechuga MD Primary Care Provider [phone] Win Yusuf MD PhD Unavailable [phone] Dania Rojo DISTRIBUTION COORDINATOR Unavailable Unavailab le Reason for Visit * Reason Comments Medication Refill Encounter Details Date Type Department Care Team (Late st Contact Info) Description 05/20/2022 Refill [facility] Medicine [facility] [address] [place] [id number] Austyn Park, WORSHIP LEADER, HEADING MAKER #[address] [address] Medication Refill Social History Tobacco Use Types [...] CDT Gender Identity Female 04/28/2023 11:45 PM GANG LEADER Sexual Orientation Straight 04/28/2023 11 :45 PM GANG LEADER COVID-19 Exposure Response Date Recorded In the last 10 days, have yo u been in contact with someone who was confirmed or suspected to have Coronavirus/COVID-19? No / Unsure 04/26/2022 1:20 PM GANG LEADER documented as of this encounter Miscellaneous Notes * Telephone Encounter - Bela Ceja RN - 05/20/2022 9:53 AM CST Discontinued by Austyn 05/03/22 for Contraindication. LEADER * Telephone Encounter - Bela Ceja RN - 05/20/2022 9:52 AM CST Images from the original note were not included. Acetaminophen-Codeine Dispensed Days Supply Quantity Provider Pharmacy ACETAMINOPHEN-COD #3 TABLET 04/26/2022 15 60 Tablet Shad Lechuga MD [facility] ... LEADER documented in this encounter Plan of Treatment Not on file documented as of this encounter Visit Diagnoses Not on filedocumented in this encounter Additional Health Concerns Infection Onset Date Last Indicated Resolved Time COVID - 19 09/02/2024 09/02/2024 09/02/2024 9:27 PM CDT Assessment Noted Time PHQ-9 Depression Total Score: 1 08/13/19 21 3:14 PM GANG LEADER documented as of this encounter Care Teams Heat Treating Bluer Relationship Specialty Start Date End Date Shad Lechuga MD #[address] [address] PCP - General Family Medicine 07/20/18 Win Yusuf MD PhD [address] [place] [address] Neurosurgeon Neurological Surgery 05/13/19 Dania Rojo LSW [place] Director Of Retail Operations Glass Calibrator 02/24/25 documented as of this encounter
--- OUTSIDE RECORDS SUMMARY | 2025-05-14 07:25 | XMS_ITS | Encounter Summary ---
Author Organization [facility] Address [address] [place] [address] Phone Care Team Providers Care Community Placement Worker Name Role Phone Shad Lechuga MD Primary Care Provider [phone] Win Yusuf MD PhD Unavailable [phone] Dania Rojo DOG FOOD SHREDDER OPERATOR Unavailable Unavailab le Reason for Visit * Reason Comments Medication Refill Encounter Details Date Type Department Care Team (Late st Contact Info) Description 03/26/2021 Refill [facility] [address] [place] [id number] Shad Lechuga MD #[address] [address] Medication Refill Social History Tobacco Use Types [...] CDT Gender Identity Female 04/28/2023 11:45 PM RAILROAD POLICE Sexual Orientation Straight 04/28/2023 11 :45 PM RAILROAD POLICE COVID-19 Exposure Response Date Recorded In the last month, have you been in contact with someone who was confirmed or suspected to have Coronavirus / COVID-19? No / Unsure 03/23/2021 6:29 AM CDT documented as of this encounter Miscellaneous Notes * Telephone Encounter - Bela Ceja RN - 03/26/2021 2:36 PM CDT [place] PDMP 02/08/21 Medication failed the protocol, provider to review and approve the medication order if appropriate. Requested Prescriptions Pending Prescriptions Disp Refills HYDROcodone-acetaminophen (NORCO) 7.5-325 MG Tablet [Pharmacy Med Name: HYDROCODONE-APAP 7.5-325MG]120 Tablet 0 Sig: TAKE (1) TABLET BY MOUTH EVERY 6 HOURS NEEDED FOR MODERATE/SEVERE PAIN healthfinch Not Delegated - Analgesics: Opioid Agonist Combinations Failed - 03/26/2021 2:36 PM Failed - This refill cannot be delegated Passed - Valid encounter within last 6 months Past Office Visits Recent Outpatient Visits 1 month ago Left sided abdominal pain [facility] Medical [facility] Family [facility] - Austyn Crockett APN, CNP 4 months ago Schizophrenia, unspecified type (HCC) [facility] Austyn Crockett APN, CNP 5 months ago SOB (shortness of breath) [facility] - Shad Lopez MD 7 months ago [facility], DMITRIY 7 months ago [facility], [facility] APN, DMITIRY Upcoming Appointments Future Appointments In 2 weeks [id number] 1 month Austyn Park APN, CNP [facility] DORIS [facility] ALGEBRAIST - Recent and Past Visits Recent Visits Date Type Provider Dept 02/17/21 Office Visit Austyn Park APN, CNP [facility] 11/13/20 Office Visit Austyn Park APN, CNP [facility] 10/13/20 Telemedicine [facility]ad [facility] MD [facility] 08/13/20 Office Visit Austyn Park APN, [facility] 08/04/20 Office Visit Austyn Park APN, DMITRIY [facility] 03/19/20 Office Visit Austyn Park APN, [facility] Showing recent visits within past 460 days with a meds authorizing provider and meeting all other requirements Future Appointments Date Type Provider Dept 04/27/21 Appointment Austyn Park APN, DMITRIY [facility] Showing future appointments within next 90 days [...] Depression Total Score: 1 08/13/19 3:14 PM RAILROAD POLICE documented as of this encounter Care Teams Community Placement Worker Relationship Specialty Start Date End Date Shad Lechuga MD #[address] [address] PCP - General Family Medicine 07/20/18 Win Yusuf MD PhD [address] [place] [address] Neurosurgeon Neurological Surgery 05/13/19 Dania Rojo LSW [place] Petroleum Supply Specialist Wedding Makeup Artist 02/24/25 documented as of this encounter
--- OUTSIDE RECORDS SUMMARY | 2025-05-14 07:26 | XMS_ITS | Encounter Summary ---
Author Organization [facility] Address [address] [place] [address] Phone Care Team Providers Care Pharmacy Technician Assistant Name Role Phone Shad Lechuga MD Primary Care Provider [phone] Win Yusuf MD PhD Unavailable [phone] Dania Rojo INVENTORY SPECIALIST Unavailable Unavailab le Dania Rojo INVENTORY SPECIALIST Unavailable Unavailab le Reason for Visit * Reason Onset Date Comments Medication Management 07/27/2020 Encounter Details Date Type Department Care Team (Late st Contact Info) Description 07/27/2020 Telephone [facility] [address] [place] [phone] Shad Lechuga MD #[address] [address] Medication Management Social History Tobacco Use Types Packs/Day Years Used Date Smoking Tobacco: Former Cigarettes E-Vapor with Nicotine Smokeless Tobacco: Current Chew Alcohol Use Standard Drinks/Week Comments No 0 (1 standard drink = 0.6 oz pur e alcohol) PHQ-2 Answer Date Recorded Total Score - Questions 1-9 0 01/2020 Sexually Active Control Partners Comments Not Currently Comments No Sex and Gender Information Value Date Recorded Sex Assigned at Not on file Legal Sex Female 9:25 PM CDT Gender Identity Female 04/28/2023 11:45 PM CUSTOMER EXPERIENCE ASSOCIATE Sexual Orientation Straight 04/28/2023 11 :45 PM CUSTOMER EXPERIENCE ASSOCIATE COVID-19 Exposure Response Date Recorded In the last month, have you been in contact with someone who was confirmed or suspected to have Coronavirus / COVID-19? No / Unsure 07/13/2020 2:34 PM CUSTOMER EXPERIENCE ASSOCIATE documented as of this encounter Miscellaneous Notes * Telephone Encounter - Willis Queen RN - 07/27/2020 9:31 AM CST Pt asking to have all her meds transferred to a differ pharmacy due to a change in location. Preferred pharmacy updated OMER EXPERIENCE ASSOCIATE documented in this encounter Plan of Treatment Not on file documented as of this encounter Visit Diagnoses Diagnosis Essential hypertension Unspecified essential hypertension History of stroke Transient ischemic attack (TIA), and cerebral infarction without residual deficits Chronic pain syndrome Chronic joint pain Pain in joint, site unspecified Acute bilateral low back pain without sciatica documented in this encounter Additional Health Concerns Infection Onset Date Last Indicated Resolved Time COVID - 19 08/26/2020 08/26/2020 08/27/2020 1:38 PM CDT COVID - 19 09/02/2024 09/02/2024 09/02/2024 9:27 PM CDT Assessment Noted Time PHQ-9 Depression Total Score: 0 03/19/20 20 2:00 PM CDT documented as of this encounter Care Teams Pharmacy Technician Assistant Relationship Specialty Start Date End Date Shad Lechuga MD #[address] [address] PCP - General Family Medicine 07/20/18 Win Yusuf MD PhD [address] [place] [address] Neurosurgeon Neurological Surgery 05/13/19 Dania Rojo LSW [place] Electrical Installation Inspector 08/12/20 12/03/20 Dania Rojo LSW [place] Business Objects Report Developer Electrical Installation Inspector 02/24/25 documented as of this encounter
--- OUTSIDE RECORDS SUMMARY | 2025-05-14 07:26 | XMS_ITS ---
Author Organization [facility] Address [address] [facility] [address] [place] [address] Phone Care Team Providers Care Lead Janitor Name Role Phone Shad Lechuga MD Primary Care Provider [phone] Win Yusuf MD PhD Unavailable [phone] Dania Rojo AGRICULTURAL LENDER Unavailable Unavailab le [facility] Service Episode Status:Identified (Enrolling) Start date:02/24/2025 Related program episode:OnCall Chronic Condition Monitoring (Active) Continued Care and Services Coordination
--- OUTSIDE RECORDS SUMMARY | 2025-05-14 07:26 | XMS_ITS | Encounter Summary ---
Author Organization [facility] Address [address] [place] [address] Phone Care Team Providers Care Dividing Machine Operator Name Role Phone Shad Lechuga MD Primary Care Provider [phone] Win Yusuf MD PhD Unavailable [phone] Dania Rojo EXERCISE SCIENTIST Unavailable Unavailab le Dania Rojo EXERCISE SCIENTIST Unavailable Unavailab le Reason for Visit * Reason Onset Date Comments Medication Refill 10/11/2020 Encounter Details Date Type Department Care Team (Late st Contact Info) Description 10/11/2020 Refill [facility] [address] [place] [phone] Shad Lechuga MD [address] [address] Medication Refill Social History Tobacco Use Types [...] CDT Gender Identity Female 04/28/2023 11:45 PM SUPERVISOR SEWING ROOM Sexual Orientation Straight 04/28/2023 11 :45 PM SUPERVISOR SEWING ROOM COVID-19 Exposure Response Date Recorded In the last month, have you been in contact with someone who was confirmed or suspected to have Coronavirus / COVID-19? Yes 10/11/2020 9:31 AM CDT documented as of this encounter Miscellaneous Notes * Telephone Encounter - Kimberly Alcala RN - 2020 2:36 PM CDT Pt is calling asking about refills, also needing amlodipine filled, order is pending. * Telephone Encounter - Zita Anderson RN - 2020 11:49 AM CDT [place] 08/15/20 [place] diazepam 08/04/20 Medication failed the protocol, provider to review and approve the medication order if appropriate. Requested Prescriptions Pending Prescriptions Disp Refills HYDROcodone-acetaminophen (NORCO) 7.5-325 MG Tablet 120 Tablet Sig: Take 1 Tablet by mouth every 6 hours as needed for Moderate or more severe pain. healthfinch Not Delegated - Analgesics: Opioid Agonist Combinations Failed - 2020 11:49 AM Failed - This refill cannot be delegated Passed - Valid encounter within last 6 months Past Office Visits Recent Outpatient Visits 2 months ago Urinary retention [facility] - [facility]ett APN, DMITRIY 2 months ago Chest pain, unspecified type [facility] - Family [facility] - Austyn Crockett APN, CERTIFIED REGISTERED NURSE ANESTHETIST 6 months ago Chronic pain syndrome [facility] Family Medicine - Austyn Crockett APN, DMITRIY 10 months ago Chronic pain syndrome [facility] Family Medicine - Austyn Crockett APN, CERTIFIED REGISTERED NURSE ANESTHETIST 1 year ago DDD (degenerative disc disease), cervical [facility] - Austyn Crockett APN, DMITRIY Upcoming Appointments CRACKING AND FANNING MACHINE OPERATOR - Recent and Past Visits Recent Visits Date Type Provider Dept 08/13/20 Office Visit [facility] [place] APN, DMITRIY [facility] 08/04/20 Office Visit Austyn [place] APN, DMITRIY [facility] 03/19/20 Office Visit [facility]yn [facility] APN, DMITRIY [facility] 12/11/19 Office Visit [facility] [place] APN, DMITRIY [facility] Showing recent visits within past 460 days with a meds authorizing provider and meeting all other requirements Future Appointments No visits were found meeting these conditions. Showing future appointments within next 90 days with a meds authorizing provider and meeting all other requirements diazePAM (VALIUM) 5 MG Tablet 60 Tablet Sig: Take 1 Tablet by mouth 2 times daily as needed for Anxiety. healthfinch Not Delegated - Psychiatry: Anxiolytics/Hypnotics Failed - 2020 11:49 AM Failed - This refill cannot be delegated Passed - Valid encounter within last 6 months Past Office Visits Recent Outpatient Visits 2 months ago Urinary retention [facility] - [facility] - Austyn Crockett APN, DMITRIY 2 months ago Chest pain, unspecified type [facility] - Austyn Crockett APN, CERTIFIED REGISTERED NURSE ANESTHETIST 6 months ago Chronic pain syndrome [facility] - Austyn Crockett APN, CERTIFIED REGISTERED NURSE ANESTHETIST 10 months ago Chronic pain syndrome [facility] - Austyn Crockett APN, CERTIFIED REGISTERED NURSE ANESTHETIST 1 year ago DDD (degenerative disc disease), cervical [facility] - Austyn Crockett APN, CERTIFIED REGISTERED NURSE ANESTHETIST Upcoming Appointments 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 Showing future appointments within next 90 days with a meds authorizing provider and meeting all other requirements * Telephone Encounter - Zulma Peter RN - 10/11/2020 9:51 AM CDT Wants to only use [facility] now for scripts. Needs refilled on both these medications - was told to call at least 2 days prior. documented in this encounter Plan of Treatment Not on file documented as of this encounter Visit Diagnoses Diagnosis Chronic pain syndrome Hallucinations Essential hypertension Unspecified essential hypertension documented in this encounter Additional Health Concerns Infection Onset Date Last Indicated Resolved Time COVID - 19 09/02/2024 09/02/2024 09/02/2024 9:27 PM CDT Assessment Noted Time PHQ-9 Depression Total Score: 1 08/13/19 21 3:14 PM SUPERVISOR SEWING ROOM documented as of this encounter Care Teams Dividing Machine Operator Relationship Specialty Start Date End Date Shad Lechuga MD [address] [address] PCP - General Family Medicine 07/20/18 Win Yusuf MD PhD [address] [place] [address] Neurosurgeon Neurological Surgery 05/13/19 Dania Rojo LSW [place] Building Construction Supervisor 08/12/20 12/03/20 Dania Rojo LSW [place] [employer] Building Construction Supervisor 02/24/25 documented as of this encounter
--- OUTSIDE RECORDS SUMMARY | 2025-05-14 07:26 | XMS_ITS ---
Author Organization [facility] Address [address] [facility] [address] [place] [address] Phone Care Team Providers Care Diesel Technician Name Role Phone Shad Lechuga MD Primary Care Provider [phone] Win Yusuf MD PhD Unavailable [phone] Dania Rojo Unavailable Unavailab le Ambulatory Complex Care Management Status:Enrolled (Active) Start date:02/24/2025 Enrollment date:02/24/2025 Enrollment reason:Identified using referral data Current support & services provided:Basketball Assembler Care Managed Related social drivers of health:Social Connections, Tobacco Use, Depression, Stress, Physical Activity, Food Insecurity, Transportation Needs, Housing Stability Case Team Name Relationship Phone Dania LOAIZA(Responsible Staff) Basketball Assembler Dehairing Machine Tender Continued Care and Services Coordination
--- OUTSIDE RECORDS SUMMARY | 2025-05-14 07:26 | XMS_ITS | Encounter Summary ---
Author Organization [facility] Address [address] [place] [address] Phone Care Team Providers Care Cashier Manager Name Role Phone Shad Lechuga MD Primary Care Provider [phone] Win Yusuf MD PhD Unavailable [phone] Dania Rojo DATA CENTER SOLUTIONS ARCHITECT Unavailable Unavailab le Dania Rojo DATA CENTER SOLUTIONS ARCHITECT Unavailable Unavailab le Reason for Visit * Reason Comments Medication Refill Encounter Details Date Type Department Care Team (Late st Contact Info) Description 11/05/2020 Refill [facility] [address] [place] [phone] Shad Lechuga MD [address] [address] Medication Refill Social History Tobacco Use Types [...] CDT Gender Identity Female 04/28/2023 11:45 PM COMMERCIAL PRODUCTION EDITOR Sexual Orientation Straight 04/28/2023 11 :45 PM COMMERCIAL PRODUCTION EDITOR COVID-19 Exposure Response Date Recorded In the last month, have you been in contact with someone who was confirmed or suspected to have Coronavirus / COVID-19? No / Unsure 11/03/2020 5:17 PM CDT documented as of this encounter Miscellaneous Notes * Telephone Encounter - Bela Ceja RN - 11/06/2020 10:38 AM CDT Last fill 10/15/20 for 30 days documented in this encounter Plan of Treatment Not on file documented as of this encounter Visit Diagnoses Diagnosis Chronic pain syndrome documented in this encounter Additional Health Concerns Infection Onset Date Last Indicated Resolved Time COVID - 19 09/02/2024 09/02/2024 09/02/2024 9:27 PM CDT Assessment Noted Time PHQ-9 Depression Total Score: 1 08/13/19 21 3:14 PM COMMERCIAL PRODUCTION EDITOR documented as of this encounter Care Teams Cashier Manager Relationship Specialty Start Date End Date Shad Lechuga MD [address] [address] PCP - General Family Medicine 07/20/18 Win Yusuf MD PhD [address] [place] [address] Neurosurgeon Neurological Surgery 05/13/19 Dania Rojo LSW [place] Steel Analyst 08/12/20 12/03/20 Dania Rojo LSW [place] Commercial Loan Collection Officer Steel Analyst 02/24/25 documented as of this encounter
--- OUTSIDE RECORDS SUMMARY | 2025-05-14 07:26 | XMS_ITS | Encounter Summary ---
Author Organization [facility] Address [address] [place] [address] Phone Care Team Providers Care Field Application Engineer Name Role Phone Shad Lechuga MD Primary Care Provider [phone] Win Yusuf MD PhD Unavailable [phone] Dania Rojo OUTDOOR ADVENTURE INSTRUCTOR Unavailable Unavailab le Reason for Visit * Reason Comments Medication Refill Encounter Details Date Type Department Care Team (Late st Contact Info) Description 06/13/2023 Refill [facility] [address] [place] [phone] [facility] [place], ESTHETIC DERMATOLOGIST, SPINNING DOFFER [address] [address] Medication Refill Social History Tobacco Use Types [...] CDT Gender Identity Female 04/28/2023 11:45 PM FIELD TRAINER Sexual Orientation Straight 04/28/2023 11 :45 PM FIELD TRAINER documented as of this encounter Miscellaneous Notes * Telephone Encounter - Bryanna Bautista RMA - 06/21/2023 2:30 PM FIELD TRAINER [place]m D TRAINER * Telephone Encounter - Bryanna Bautista RMA - 06/20/2023 10:55 AM FIELD TRAINER LVM to return call D TRAINER * Telephone Encounter - Shad Lechuga MD - 06/13/2023 5:16 PM FIELD TRAINER No more refills on controlled substances till she is seen. Please schedule her with me or Austyn. Thanks! D TRAINER * Telephone Encounter - Bela Ceja RN - 06/13/2023 5:06 PM CST PDMP 05/15/23 - 30 days Medication failed the protocol, provider to review and approve the medication order if appropriate. Requested Prescriptions Pending Prescriptions Disp Refills acetaminophen-codeine (TYLENOL #3) 300-30 MG Tablet [Pharmacy Med Name: ACETAMINOPHEN-COD #3 TABLET] 30 Tablet 0 Sig: TAKE (1) TABLET BY MOUTH DAILY Not Delegated - Opioid Combinations Protocol Failed - 06/13/2023 1:43 PM Failed - This refill cannot be delegated Passed - Visit with relevant provider in past 12 months or upcoming 90 days Recent Visits Date Type Provider Dept 07/27/22 Office Visit [facility]ad [facility] Showing recent visits within past 365 days and meeting all other requirements Future Appointments No visits were found meeting these conditions. Showing future appointments within next 90 days and meeting all other requirements D TRAINER documented in this encounter Plan of Treatment Not on file documented as of this encounter Visit Diagnoses Diagnosis Chronic pain syndrome documented in this encounter Additional Health Concerns Infection Onset Date Last Indicated Resolved Time COVID - 19 09/02/2024 09/02/2024 09/02/2024 9:27 PM CDT Assessment Noted Time PHQ-9 Depression Total Score: 1 08/13/19 21 3:14 PM FIELD TRAINER documented as of this encounter Care Teams Field Application Engineer Relationship Specialty Start Date End Date Shad Lechuga MD #[address] [address] PCP - General Family Medicine 07/20/18 Win Yusuf MD PhD [address] [place] [address] Neurosurgeon Neurological Surgery 05/13/19 Dania Rojo LSW [place] [employer] D[employer] Outside Machinist Helper 02/24/25 documented as of this encounter
--- OUTSIDE RECORDS SUMMARY | 2025-05-14 07:26 | XMS_ITS | Encounter Summary ---
Author Organization [facility] Address [address] [place] [address] Phone Care Team Providers Care Recruiter Name Role Phone Shad Lechuga MD Primary Care Provider [phone] Win Yusuf MD PhD Unavailable [phone] Dania Rojo FISH ICER Unavailable Unavailab le Dania Rojo FISH ICER Unavailable Unavailab le Reason for Visit * Reason Comments Medication Refill Encounter Details Date Type Department Care Team (Late st Contact Info) Description 07/02/2020 Refill [facility] [address] [place] [address] Shad Lechuga MD #[address] [address] Medication Refill Social History Tobacco Use Types [...] CDT Gender Identity Female 04/28/2023 11:45 PM LINE ASSEMBLER AIRCRAFT Sexual Orientation Straight 04/28/2023 11 :45 PM LINE ASSEMBLER AIRCRAFT COVID-19 Exposure Response Date Recorded In the last month, have you been in contact with someone who was confirmed or suspected to have Coronavirus / COVID-19? No / Unsure 06/24/2020 1:43 PM LINE ASSEMBLER AIRCRAFT documented as of this encounter Miscellaneous Notes * Telephone Encounter - Zita Anderson RN - 07/03/2020 9:04 AM CST Medication failed the protocol, provider to review and approve the medication order if appropriate. Requested Prescriptions Pending Prescriptions Disp Refills diazePAM (VALIUM) 5 MG Tablet [Pharmacy Med Name: DIAZEPAM 5MG++] 30 Tab 0 Sig: TAKE 1 TABLET BY MOUTH EVERY 12 HOURS NEEDED FOR ANXIETY. Not Delegated - Psychiatry: Anxiolytics/Hypnotics Failed - 07/02/2020 1:43 PM Failed - This refill cannot be delegated Passed - Valid encounter within last 6 months Past Office Visits Recent Outpatient Visits 3 months ago Chronic pain syndrome [facility] - Austyn Crockett APN, CNP 6 months ago Chronic pain syndrome [facility] - Austyn Crockett APN, CNP 1 year ago DDD (degenerative disc disease), cervical [facility] - Austyn Crockett APN, CNP 1 year ago Gastroesophageal reflux disease, esophagitis presence not specified [facility] - Shad Lopez MD 1 year ago Gynecologic malignancy (HCC) [facility] - Austyn Crockett APN, CNP Upcoming Appointments Future Appointments In 1 week Shad Lechuga MD [facility] - [place] [facility] PHYSICAL GEOGRAPHER - Recent and Past Visits Recent Visits Date Type Provider Dept 03/19/20 Office Visit Austyn Park APN, CNP [facility] 12/11/19 Office Visit Austyn Park APN, CNP [facility] 05/13/19 Office Visit Austyn Park APN, CNP [facility] [place] Showing recent visits within past 460 days with a meds authorizing provider and meeting all other requirements Future Appointments Date Type Provider Dept 07/15/20 Appointment Shad Lechuga MD [facility] Showing future appointments within next 90 days with a meds authorizing provider and meeting all other requirements ASSEMBLER AIRCRAFT documented in this encounter Plan of Treatment [...] documented as of this encounter Care Teams Recruiter Relationship Specialty Start Date End Date Shad Lechuga MD [address] [address] PCP - General Family Medicine 07/20/18 Win Yusuf MD PhD [address] [place] [address] Neurosurgeon Neurological Surgery 05/13/19 Dania Rojo LSW [place] Deputy Chief Counsel 08/12/20 12/03/20 Dania Rojo LSW [place] Assistant Clinical Director Deputy Chief Counsel 02/24/25 documented as of this encounter
--- OUTSIDE RECORDS SUMMARY | 2025-05-14 07:26 | XMS_ITS | Encounter Summary ---
Author Organization [facility] Address [address] [place] [address] Phone Care Team Providers Care Ship Scraper Name Role Phone Shad Lechuga MD Primary Care Provider [phone] Win Yusuf MD PhD Unavailable Dania Rojo COMPENSATION SUPERVISOR Unavailable Unavailab le Dania Rojo COMPENSATION SUPERVISOR Unavailable Unavailab le Reason for Visit * Reason Comments Medication Refill Encounter Details Date Type Department Care Team (Late st Contact Info) Description 07/14/2020 Refill [facility] [address] [place] [phone] Shad Lechuga MD [address] [address] Medication Refill Social History Tobacco Use Types [...] CDT Gender Identity Female 04/28/2023 11:45 PM RETAIL MAINTENANCE TECHNICIAN Sexual Orientation Straight 04/28/2023 11 :45 PM RETAIL MAINTENANCE TECHNICIAN COVID-19 Exposure Response Date Recorded In the last month, have you been in contact with someone who was confirmed or suspected to have Coronavirus / COVID-19? No / Unsure 07/13/2020 2:34 PM RETAIL MAINTENANCE TECHNICIAN documented as of this encounter Miscellaneous Notes * Telephone Encounter - Bela Ceja RN - 07/14/2020 3:29 PM CST [place] PD[place] 06/15/20 - fill date 07/15/20 Medication failed the protocol, provider to review and approve the medication order if appropriate. Requested Prescriptions Pending Prescriptions Disp Refills HYDROcodone-acetaminophen (NORCO) 7.5-325 MG Tablet [Pharmacy Med Name: HYDROCO/APAP 7.5-325] 120 Tab 0 Sig: TAKE 1 TABLET BY MOUTH EVERY 6 HOURS NEEDED FOR MODERATE OR MORE SEVERE PAIN. Not Delegated - Analgesics: Opioid Agonist Combinations Failed - 07/14/2020 2:55 PM Failed - This refill cannot be delegated Passed - Valid encounter within last 6 months Past Office Visits Recent Outpatient Visits 3 months ago Chronic pain syndrome [facility] - Austyn Crockett APN, CNP 7 months ago Chronic pain syndrome [facility] - Austyn Crockett APN, CNP 1 year ago DDD (degenerative disc disease), cervical [facility] - Austyn Crockett APN, CNP 1 year ago Gastroesophageal reflux disease, esophagitis presence not specified [facility] - Shad Lopez MD 1 year ago Gynecologic malignancy (HCC) [facility] - Austyn Crockett APN, CNP Upcoming Appointments Future Appointments In 3 weeks [facility]yn Park APN, CNP [facility] - [facility] RESTORATION ECOLOGIST - Recent and Past Visits Recent Visits Date Type Provider Dept 03/19/20 Office Visit [facility] APN, CNP [facility] 12/11/19 Office Visit [facility] Park APN, CNP [facility] 05/13/19 Office Visit Austyn Park APN, DMITRIY [facility] Showing recent visits within past 460 days with a meds authorizing provider and meeting all other requirements Future Appointments Date Type Provider Dept 08/04/20 Appointment Austyn Park APN, DMITRIY [facility] Showing future appointments within next 90 days with a meds authorizing provider and meeting all other requirements [place] MAINTENANCE TECHNICIAN documented in this encounter Plan of Treatment [...] documented as of this encounter Care Teams Ship Scraper Relationship Specialty Start Date End Date Shad Lechuga MD #[address] [address] PCP - General Family Medicine 07/20/18 Win Yusuf MD PhD [address] [place] [address] Neurosurgeon Neurological Surgery 05/13/19 Dania Rojo LSW [place] Refrigerated Company Driver 08/12/20 12/03/20 Dania Rojo LSW [place] Residential Counselor Refrigerated Company Driver 02/24/25 documented as of this encounter
--- OUTSIDE RECORDS SUMMARY | 2025-05-14 07:26 | XMS_ITS | Encounter Summary ---
Author Organization [facility] Address [address] [place] [address] Phone Care Team Providers Care Gritting Machine Operator Name Role Phone Shad Lechuga MD Primary Care Provider [phone] Win Yusuf MD PhD Unavailable [phone] Dania Rojo PATTERN MARKER Unavailable Unavailab le Reason for Visit * Reason Onset Date Comments Medication Refill 02/25/2025 Encounter Details Date Type Department Care Team (Late st Contact Info) Description 02/25/2025 Telephone [facility] [address] [place] [address] Shad Lechuga MD [address] [id number] Medication Refill Social History Tobacco Use Types Packs/Day Years Used Date Smoking Tobacco: Every Day Cigarettes 0.5 40 Smokeless Tobacco: Former Chew, Snuff Alcohol Use Standard Drinks/Week Comments Never 0 (1 standard drink = 0.6 oz pur e alcohol) Social Connection and Isolation Panel Answer Date Recorded In a typical week, how many times do you talk on the phone with family, friends, or neighbors? Three times a week 07/31/2024 How often do you get togethe r with friends or relatives? Once a week 07/31/2024 How often do you attend chur ch or islam services? Never 07/31/2024 Do you belong to any clubs o r organizations such as samaritan groups, unions, fraternal or athletic groups, or school groups? No 07/31/2024 How often do you attend meet ings of the clubs or organizations you belong to? Never 07/31/2024 Are you , , di vorced, , never , or living with a partner? 07/31/2024 AUDIT-C Answer Date Recorded Q1: How often do you have a drink containing alcohol? Never 07/31/2024 Q2: How many drinks containi ng alcohol do you have on a typical day when you are drinking? Patient does not drink Q3: How often do you have si x or more drinks on one occasion? Never 07/31/2024 Overall Financial Resource Strain (CARDIA) Answe r Date Recorded How hard is it for you to pa y for the very basics like food, housing, medical care, and heating? Not very hard 07/31/2024 PHQ-2 Answer Date Recorded Total Score - Questions 1-9 22 02/10 [facility] of Occupat ional Health - Occupational Stress Questionnaire Answer Date Recorded Do you feel stress - tense, restless, nervous, or anxious, or unable to sleep at night because your mind is troubled all the time - these days? To some extent 07/31/2024 Hunger Vital Sign Answer Date Recorded Within the past 12 months, y ou worried that your food would run out before you got the money to buy more. Sometimes true Within the past 12 months, t he food you bought just didn't last and you didn't have money to get more. Sometimes true PRAPARE - Transportation Answer Date Re corded In the past 12 months, has l ack of transportation kept you from medical appointments or from getting medications? Yes 07/13 In the past 12 months, has l ack of transportation kept you from meetings, work, or from getting things needed for daily living? Yes 07/31/2024 Housing Stability Vital Sign Answer Shimon e Recorded In the last 12 months, was t here a time when you were not able to pay the mortgage or rent on time? No 07/31/2024 In the past 12 months, how m any times have you moved where you were living? 1 07/31/2024 At any time in the past 12 m [facility], were you homeless or living in a skilled nursing (including now)? Yes 07/31/2024 Social Connection and Isolation Panel Answer Date Recorded In a typical week, how many times do you talk on the phone with family, friends, or neighbors? Three times a week 02/24/2025 How often do you get togethe r with friends or relatives? Once a week 02/24/2025 How often do you attend chur ch or islam services? Never 02/24/2025 Do you belong to any clubs o r organizations such as samaritan groups, unions, fraternal or athletic groups, or school groups? No 02/24/2025 How often do you attend meet ings of the clubs or organizations you belong to? Never 02/24/2025 Are you , , di vorced, , never , or living with a partner? 02/24/2025 AUDIT-C Answer Date Recorded Q1: How often do you have a drink containing alcohol? Never 02/24/2025 Q2: How many drinks containi ng alcohol do you have on a typical day when you are drinking? Patient does not drink Q3: How often do you have si x or more drinks on one occasion? Never 02/24/2025 Overall Financial Resource Strain (CARDIA) Answe r Date Recorded How hard is it for you to pa y for the very basics like food, housing, medical care, and heating? Somewhat hard 02/24/2025 [facility] of Occupat ional Health - Occupational Stress Questionnaire Answer Date Recorded Do you feel stress - tense, restless, nervous, or anxious, or unable to sleep at night because your mind is troubled all the time - these days? To some extent 02/24/2025 Exercise Vital Sign Answer Date Recorde d On average, how many days pe r week do you engage in moderate to strenuous exercise (like a brisk walk)? 1 day 02/24/2025 On average, how many minutes do you engage in exercise at this level? 20 min 02/24/2025 Hunger Vital Sign Answer Date Recorded Within the past 12 months, y ou worried that your food would run out before you got the money to buy more. Sometimes true Within the past 12 months, t he food you bought just didn't last and you didn't have money to get more. Sometimes true PRAPARE - Transportation Answer Date Re corded In the past 12 months, has l ack of transportation kept you from medical appointments or from getting medications? Yes 02/10 In the past 12 months, has l ack of transportation kept you from meetings, work, or from getting things needed for daily living? Yes 02/24/2025 Housing Stability Vital Sign Answer Shimon e Recorded Unable to Pay for Housing in the Last Year Not o n file 02/24/2025 In the past 12 months, how m any times have you moved where you were living? 2 02/24/2025 At any time in the past 12 m onths, were you homeless or living in a skilled nursing (including now)? Yes 02/24/2025 [facility] Utilities Answer Date Recorded In the past 12 months has th e electric, gas, oil, or water company threatened to shut off services in your home? No 02/24/2025 Sexually Active Control Partners Comments Not Currently Comments No Sex and Gender Information Value Date Recorded Sex Assigned at Not on file Legal Sex Female 9:25 PM CDT Gender Identity Female 04/28/2023 11:45 PM HUMAN RESOURCES SUPERVISOR Sexual Orientation Straight 04/28/2023 11 :45 PM HUMAN RESOURCES SUPERVISOR documented as of this encounter Plan of Treatment Not on file documented as of this encounter Goals Goal Patient Goal Type Associated Problems Recent Progress Patient-Stated? Author Manage My Emotions Patient Goals Not on track( 025 10:45 AM HUMAN RESOURCES SUPERVISOR) Yes Dania Rojo LSW Note: Follow Up Date Month of 06/05 - join a support group MANI TAYLOR provided contact numbers and addressed for recovery support programs based in [facility] where patient is staying Patient will call and engage with a program for substance abuse recover support and mental health support Why is this important? When you are stressed, down or upset, your body reacts too. For example, your blood pressure may get higher; you may have a headache or stomachache. When your emotions get the best of you, your body's ability to fight off cold and flu gets weak. These steps will help you manage your emotions. Notes: Find Help in My Community-food access Patient Goals On track( 10:45 AM HUMAN RESOURCES SUPERVISOR) No Dania Rojo LSW Note: Follow Up Date: 06/05 - call 211 when I need some help - follow-up on any referrals for help I am given Review resources provided for food pantries Review resources provided for housing rent/assistance Why is this important? Knowing how and where to find help for yourself or family in your neighborhood and community is an important skill. You will want to take some steps to learn how. Notes: Make and Keep All Appointments- use insurance based transportation benefits Patient Goals On track( 025 10:45 AM HUMAN RESOURCES SUPERVISOR) Yes Dania Rojo LSW Note: Follow Up Date 06/05 - arrange a ride through an agency 1 week before appointment - ask family or friend for a ride - keep a calendar with prescription refill dates - keep a calendar with appointment dates [facility] provided contact number for [facility] Medicare transportation line Patient will call and arrange rides as needed or ask family for rides Why is this important? Part of staying healthy is seeing the doctor for follow-up care. If you forget your appointments, there are some things you can do to stay on track. Notes: documented as of this encounter Visit Diagnoses Not on filedocumented in this encounter Additional Health Concerns Assessment Noted Time PHQ-9 Depression Total Score: 22 025 1:20 PM CDT documented as of this encounter Care Teams Gritting Machine Operator Relationship Specialty Start Date End Date Shad Lechuga MD [address] [address] PCP - General Family Medicine 07/20/18 Win Yusuf MD PhD [address] [place] [address] Neurosurgeon Neurological Surgery 05/13/19 Dania Rojo LSW [place] General Expeditor Clay Thrower 02/24/25 documented as of this encounter
--- OUTSIDE RECORDS SUMMARY | 2025-05-14 07:26 | XMS_ITS | Encounter Summary ---
Author Organization [facility] Address [address] [place] [address] Phone Care Team Providers Care Biochemistry Technician Name Role Phone Shad Lechuga MD Primary Care Provider [phone] Win Yusuf MD PhD Unavailable [phone] Dania Rojo PELLETISING EXTRUDER OPERATOR Unavailable Unavailab le Dania Rojo PELLETISING EXTRUDER OPERATOR Unavailable Unavailab le Reason for Visit * Reason Comments Medication Refill Encounter Details Date Type Department Care Team (Late st Contact Info) Description 06/16/2020 Refill [facility] - Family Medicine [facility] [address] [place] [id number] Shad Lechuga MD [address] [address] Medication Refill Social History Tobacco Use Types [...] CDT Gender Identity Female 04/28/2023 11:45 PM PROCESS SAFETY SPECIALIST Sexual Orientation Straight 04/28/2023 11 :45 PM PROCESS SAFETY SPECIALIST COVID-19 Exposure Response Date Recorded In the last month, have you been in contact with someone who was confirmed or suspected to have Coronavirus / COVID-19? No / Unsure 06/15/2020 10:23 AM PROCESS SAFETY SPECIALIST documented as of this encounter Miscellaneous Notes * Telephone Encounter - Shad Lechuga MD - 06/19/2020 9:17 PM PROCESS SAFETY SPECIALIST Duplicate request. ESS SAFETY SPECIALIST * Telephone Encounter - Zita Anderson RN - 06/16/2020 9:54 AM CST Medication failed the protocol, provider to review and approve the medication order if appropriate. Requested Prescriptions Pending Prescriptions Disp Refills HYDROcodone-acetaminophen (NORCO) 7.5-325 MG Tablet [Pharmacy Med Name: HYDROCO/APAP 7.5-325++] 120Tab 0 Sig: TAKE 1 TABLET BY MOUTH EVERY 6 HOURS NEEDED FOR MODERATE OR MORE SEVERE PAIN. Not Delegated - Analgesics: Opioid Agonist Combinations Failed - 06/16/2020 9:13 AM Failed - This refill cannot be delegated Passed - Valid encounter within last 6 months Past Office Visits Recent Outpatient Visits 2 months ago Chronic pain syndrome [facility] - [facility] APN, DMITRIY 6 months ago Chronic pain syndrome [facility] - [facility] APN, DMITRIY 1 year ago DDD (degenerative disc disease), cervical [facility] APN, DMITRIY 1 year ago Gastroesophageal reflux disease, esophagitis presence not specified [facility] Shad Alvarez MD 1 year ago Gynecologic malignancy (HCC) [facility] Austyn Crockett APN, DMITRIY Upcoming Appointments Future Appointments In 4 weeks Shad Lechuga MD [facility] INSPECTOR AGRICULTURAL COMMODITIES - Recent and Past Visits Recent Visits Date Type Provider Dept 03/19/20 Office Visit [facility], [facility] 12/11/19 Office Visit [facility], [facility] 05/13/19 [facility] Showing recent visits within past 460 days with a meds authorizing provider and meeting all other requirements Future Appointments Date Type Provider Dept 07/15/20 Appointment Shad Le[facility] MD [facility] Showing future appointments within next 90 days with a meds authorizing provider and meeting all other requirements ESS SAFETY SPECIALIST documented in this encounter Plan of Treatment [...] documented as of this encounter Care Teams Biochemistry Technician Relationship Specialty Start Date End Date Shad Lechuga MD [address] [address] PCP - General Family Medicine 07/20/18 Win Yusuf MD PhD [address] [place] [address] Neurosurgeon Neurological Surgery 05/13/19 Dania Rojo LSW [place] Supervisor Phosphatic Fertilizer 08/12/20 12/03/20 Dania Rojo LSW [place] Manager Business Management Supervisor Phosphatic Fertilizer 02/24/25 documented as of this encounter
--- OUTSIDE RECORDS SUMMARY | 2025-05-14 07:26 | XMS_ITS | Encounter Summary ---
Author Organization [facility] Address [address] [place] [address] Phone Care Team Providers Care In Store Representative Name Role Phone Shad Lechuga MD Primary Care Provider [phone] Win Yusuf MD PhD Unavailable [phone] Dania Rojo RADIOLOGICAL TECHNOLOGIST Unavailable Unavailab le Dania Rojo RADIOLOGICAL TECHNOLOGIST Unavailable Unavailab le Reason for Visit * Reason Onset Date Comments Medication Refill 06/15/2020 Encounter Details Date Type Department Care Team (Late st Contact Info) Description 06/15/2020 Telephone [facility] [address] [place] [id number] Shad Lechuga MD [address] [address] Medication Refill Social History Tobacco Use Types [...] CDT Gender Identity Female 04/28/2023 11:45 PM PSYCH THERAPIST Sexual Orientation Straight 04/28/2023 11 :45 PM PSYCH THERAPIST COVID-19 Exposure Response Date Recorded In the last month, have you been in contact with someone who was confirmed or suspected to have Coronavirus / COVID-19? No / Unsure 06/15/2020 10:23 AM PSYCH THERAPIST documented as of this encounter Miscellaneous Notes * Telephone Encounter - Stella Ibrahim - 06/15/2020 10:27 AM CST Name of Medication: HYDROcodone-acetaminophen (NORCO) 7.5-325 MG Tablet Pharmacy/location for refill to be sent to (if is not a written script)? [facility], [place] - [address] [place] [address] 30 or 90 day supply? 120 Tab H THERAPIST documented in this encounter Plan of Treatment [...] documented as of this encounter Care Teams In Store Representative Relationship Specialty Start Date End Date Shad Lechuga MD [address] [address] PCP - General Family Medicine 07/20/18 Win Yusuf MD PhD [address] [place] [address] Neurosurgeon Neurological Surgery 05/13/19 Dania Rojo LSW [place] Audiovisual Librarian 08/12/20 12/03/20 Dania Rojo LSW [place] Biblical Languages Professor Audiovisual Librarian 02/24/25 documented as of this encounter
--- OUTSIDE RECORDS SUMMARY | 2025-05-14 07:26 | XMS_ITS | Clinical Summary ---
Author Organization [facility] Address [address] [address] Phone Care Team Providers Care Senior Financial Analyst Name Role Phone Shad Lechuga MD Primary Care Provider [phone] Win Yusuf MD PhD Unavailable [phone] Dania Rojo PAVING AND SURFACING LABOURER Unavailable Unavailab le Allergies Active Allergy Reactions Criticality Noted Date Comments Iodinated Contrast Media Other (see Comments) 08/30/2018 Blood pressure dropped Gabapentin Other (see Comments) 10/02/2015 seizures Iodine Shortness of Breath 09/29/2021 Penicillamine Unknown 09/04/2024 Penicillins Anaphylaxis 05/17/2015 Medications melatonin 3 MG Tablet Take 3 mg by mouth nightly. 09/05/19 24 Active clopidogrel (PLAVIX) 75 MG Tablet Take 1 Tablet by mouth daily. 90 Tablet 1 09/05/19 25 Active aspirin EC (ASPIRIN LOW DOSE) 81 MG Tablet Delayed Response Take 1 Tablet by mouth daily. 90 Tablet 2 09/05/19 25 Active atorvastatin (LIPITOR) 40 MG Tablet Take 1 Tablet by mouth every evening. 90 Tablet 3 09/05/19 25 Active docusate sodium (COLACE) 100 MG Capsule Take 1 Capsule by mouth 2 times daily. 180 Capsule 1 09/10/19 25 Active pantoprazole (PROTONIX) 40 MG Tablet Delayed Response Take 1 Tablet by mouth daily. 30 Tablet 09/15/20 25 Active Umeclidinium Blaine (Incruse Ellipta) 62.5 MCG/ACT AEROSOL POWDER, BREATH ACTIVATED take 1 Puff by inhalation daily. 28 Each 02/25/20 25 Active venlafaxine (EFFEXOR) 75 MG Tablet Take 1 Tablet by mouth daily. 30 Tablet 02/25/20 25 Active amLODIPine (NORVASC) 5 MG Tablet TAKE 1 TABLET BY MOUTH DAILY 90 Tablet 1 05/02/20 25 Active amLODIPine (NORVASC) 5 MG Tablet Take 1 Tablet by mouth daily. 30 Tablet 02/25/20 25 025 Discontinued Active Problems Problem Noted Date Diagnosed Date Skin lesion 10/25/2023 Obesity (BMI 30-39.9) 10/25/2023 Postmenopausal 10/25/2023 Ataxic gait 10/25/2023 Hyperglycemia 07/29/2022 Noncompliance 07/27/2022 History of stroke 11/22/2021 Schizophrenic disorder 07/28/2021 SOB (shortness of breath) 10/13/2020 Seasonal allergies 01/28/2019 Gastroesophageal reflux disease 01/28/2019 Chronic pain syndrome 01/28/2019 Tinnitus of both ears 01/28/2019 Chronic joint pain 01/28/2019 Cerebrovascular accident 10/01/2018 Myocardial infarction 10/01/2018 Vitamin D insufficiency 08/05/2018 Hyperlipidemia 08/05/2018 Elevated liver enzymes 08/05/2018 Abnormal Doppler ultrasound of carotid artery Hepatitis C antibody test positive 08/02/2018 Stenosis of carotid artery 07/25/2018 Pulmonary emphysema 07/25/2018 Ovarian cancer 07/20/2018 Chest pain 06/19/2017 Attention deficit hyperactiv ity disorder (ADHD), combined type 08/25/2016 Impaired functional mobility, balance, gait, and endurance 08/25/2016 History of fusion of cervical spine 11/05/2015 Hypertension 10/02/2015 Hepatitis C 10/02/2015 History of tobacco abuse 10/02/2015 Rheumatoid arthritis involving multiple sites Chronic neck pain 10/02/2015 History of DVT (deep vein thrombosis) 10/02/2015 Neuropathy 10/02/2015 Facial droop 10/02/2015 Encounters Date Type Department Care Team Description 05/07/2025 Patient Outreach [facility] [address] [place] [phone] Moraima Rogers Care Management (Monthly monitoring call-(Apr)) 05/02/2025 Refill [facility] [address] [place] [phone] Shad Lechuga MD Medication Refill 05/01/2025 Refill [facility] [address] [place] [phone] Austyn Park APRN, DMITRIY Medication Refill 04/09/2025 Patient Outreach [facility] [address] [place] [phone] Dania Rojo LSW Care Management (Monthly monitoring) 03/25/2025 Patient Outreach [facility] [address] [place] [phone] Moraima Rogers Care Management (Bi-weekly monitoring call) 03/13/2025 Telephone [facility] [address] [place] [phone] Tylor Monroe, RAJI Cough (Care Signal alert - reports larger amount of sputum) 03/10/2025 Patient Outreach [facility] [address] [place] [phone] Dania Rojo LSW Care Management (Weekly monitoring ) 03/05/2025 Patient Outreach [facility] [address] [place] [phone] Dania Rojo LSW Care Management (Weekly monitoring ) 03/05/2025 Telephone [facility] [address] [place] [address] [phone] Magda Brooks, RAJI COPD ([facility]- remote patient monitoring program- Chronic Obstructive Pulmonary Disease program. /) 02/26/2025 Telephone [facility] [address] [place] [address] Shad Lechuga MD Medication Refill 02/25/2025 Telephone [facility] [place] [address] Shad Lechuga MD 02/25/2025 Telephone [facility] [address] [place] [phone] Sahd Lechuga MD Medication Refill 02/24/2025 1:00 PM CDT Office Visit [facility] [place] [address] Austyn Park APRN, DMITRIY Primary hypertension (Primary Dx); Schizophrenic disorder (HCC); Reactive depression; High risk social situation Discharge Disposition: Discharged to home or Selfcare 02/24/2025 Patient Outreach [facility] [address] [place] [address] [phone] Monisha Pete RN 02/24/2025 Documentation Only [facility] [address] [place] [address] [phone] Monisha Pete RN 02/24/2025 Telephone [facility] [address] [place] [address] [phone] Monisha Pete RN Breathing Problem 02/24/2025 Patient Outreach [facility] [address] [place] [phone] Dania Rojo LSW Care Management ([facility]) 02/24/2025 Travel from Last 3 Months Immunizations Immunization Administration Dates Next Due Covid-19, Mrna, Lnp-s, Pf, 3 0 Mcg/0.3 Ml Dose (Pfizer) 01/28/2021,12/30/2020 Influenza Vaccine, Quadrivalent, PF 11/0 01/2023,03/20/2022,08/04/2021,2020,03/19/2020,03/07/2019,06/19/2017() ,04/01/2016 PUR FLU 3+ YRS PRES FREE QUAD IM 04/01/2016 Pneumococcal Vaccine - 13 Valent 07/28/2021 Pneumococcal Vaccine Adult - 23 Valent 03/19/2020,06/19/2017() Family History Medical History Relation Name Comments Congestive Heart Failure Father Clotting Disorder Mother Heart Disease Mother Relation Name Status Comments Father Mother Social History Tobacco Use Types Packs/Day Years Used Date Smoking Tobacco: Every Day Cigarettes 0.5 40 Smokeless Tobacco: Former Chew, Snuff Tobacco Cessation:Ready to Q uit: Not Asked; Counseling Given: Not Answered Alcohol Use Standard Drinks/Week Comments Never 0 [...] week 07/31/2024 How often do you attend [facility] or mormonism services? Never 07/31/2024 Do you belong to any clubs o r organizations such as congregational groups, unions, fraternal or athletic groups, or [...] Total Score - Questions 1-9 22 02/10 [facility] [place] of Occupat ional Health - Occupational Stress [...] any time in the past 12 m [facility], were you homeless or living in a halfway (including now)? Yes 07/31/2024 Social Connection and Isolation Panel Answer Date Recorded In a typical week, how many times do you talk on the phone with family, friends, or neighbors? Three times a week 02/24/2025 How often do you get togethe r with friends or relatives? Once a week 02/24/2025 How often do you attend chur or mormonism services? Never 02/24/2025 Do you belong to any clubs o r organizations such as congregational groups, unions, fraternal or athletic groups, or [...] medical care, and heating? Somewhat hard 02/24/2025 [facility] - Occupational Stress Questionnaire Answer Date Recorded [...] any time in the past 12 m [facility], were you homeless or living in a halfway (including now)? Yes 02/24/2025 [facility] Utilities Answer Date Recorded In the past 12 months has th e electric, gas, oil, or water company threatened to shut off services in your home? No 02/24/2025 Sexually Active Control Partners Comments Not Currently Comments No Sex and Gender Information Value Date Recorded Sex Assigned at Not on file Legal Sex Female 9:25 PM CDT Gender Identity Female 04/28/2023 11:45 PM FURNACE ERECTOR Sexual Orientation Straight 04/28/2023 11 :45 PM FURNACE ERECTOR Last Filed Vital Signs Vital Sign Reading Time Taken Comments Blood Pressure 142/84 02/24/2025 1:15 PM CDT Pulse 104 02/24/2025 1:15 PM CDT Temperature 37.1 C (98.7 F) 02/24/2025 1:15 PM CDT Respiratory Rate 20 02/24/2025 1:15 PM CDT Oxygen Saturation 97% 02/24/2025 1:15 PM CDT Inhaled Oxygen Concentration - - Weight 75.8 kg (167 lb) 02/24/2025 1:15 PM CDT Height 172.7 cm (5' 8) 02/24/2025 1:15 PM CDT Body Mass Index 25.39 02/24/2025 1:15 PM CDT Plan of Treatment Health Maintenance Due Date Last Done Comments TdaP Immunization 1968 Hepatitis B Immunization (1 of 3 - 19+ 3-dose series) 10/13/1987 Zoster Immunization (1 of 2) 10/13/1987 Cologuard 2013 Immunochemical Fecal Occult Blood 2013 Respiratory Syncytial Virus (RSV) Immunization (Adult) (1 - Risk 50-74 years 1-dose series) 2018 SARS-COV-2 Immunization (3 - Pfizer risk series) 02/25/2021 01/28/2021, 12/30/2020 Medicare Initial AWV [id number] 03/12/2022 Lung Cancer Screening 10/24/2024 10/25/2023, 022 Mammogram 12/04/2024 12/05/2023, 08/01/2018 Influenza Immunization (#1) 2025 11/0 01/2023, 03/20/2022, 08/04/2021, Additional history exists Pneumococcal Immunization (50+ years) (3 of 3 - PCV20 or PCV21) 03/19/2025 07/28/2021, 03/19/2020 Colonoscopy 03/23/2026 03/23/2021 Colorectal Cancer Screening 03/23/2026 Pneumococcal Immunization Combined Discontinued 07/28/2021, 03/19/2020 Human Papillomavirus (HPV) Immunization Aged Out No longer eligible based on patient's age to complete this topic Meningococcal Immunization (ACWY) Aged Out No longer eligible based on patient's age to complete this topic Rotavirus Immunization Aged Out No lo nger eligible based on patient's age to complete this topic Goals Goal Patient Goal Type Associated Problems Recent Progress Patient-Stated? Author Manage My Emotions Patient Goals Not on track( 10:45 AM FURNACE ERECTOR) Yes Dania Rojo LSW Note: Follow Up Date 06/05 - join a support group MANI TAYLOR provided contact numbers and addressed for recovery support programs based in [facility] where patient is staying Patient will call [...] access Patient Goals On track( 10:45 AM FURNACE ERECTOR) No Dania Rojo LSW Note: Follow Up [...] based transportation benefits Patient Goals On track( 10:45 AM FURNACE ERECTOR) Yes Dania Rojo LSW Note: Follow Up Date 06/05 - arrange a ride through an agency 1 week before appointment - ask family or friend for a ride - keep a calendar with prescription refill dates - keep a calendar with appointment dates MANI TAYLOR provided contact number for [facility] Medicare transportation line Patient will call and arrange rides as needed or ask family for rides Why is this important? Part of staying healthy is seeing the doctor for follow-up care. If you forget your appointments, there are some things you can do to stay on track. Notes: Medical Devices Implanted Type Area Philanthropy Officer Device Identifier Shelf Expiration Date Model / Serial / Lot Mynx Implanted:Qty: 1 on 06/19/2017 by Qian Magaña MD at [facility] IMPLANT Right: Groin 04/11/2019 / / [id number] Procedures Procedure Name Priority Date/Time Associated Diagnosis Comments DEMI SCREENING BILATERAL DIGITAL W CAD W IBIS Routine 12/05/2023 8:57 AM CDT Encounter for screening mammogram for malignant neoplasm of breast CT CHEST SCREENING WO Routine 10/25/2023 12:27 PM CDT Personal history of nicotine dependence from Last 3 Months or Most Recently Relevant to Health Maintenance Results * DEMI SCREENING BILATERAL DIGITAL W CAD W IBIS (12/05/2023 8:57 AM CDT) Anatomical Region Laterality Modality breast Bilateral Mammography 12/05/2023 8:59 AM CDT Narrative 12/06/2023 1:03 PM CDT - DEMI SCREENING BILATERAL DIGITAL W CAD W IBIS BILATERAL DIGITAL SCREENING MAMMOGRAM 3D/2D WITH CAD WITH MEDIOLATERAL OBLIQUE CRANIOCAUDAL: 12/05/2023 The study was acquired using digital technology and interpreted from soft copy. Current study was also evaluated with ICAD version 7.2. 2D digital mammographic views, as well as 3D digital tomosynthesis were performed in the CC and MLO projections. CLINICAL: Routine screening. Patient has no complaints. She has reduced range of motion. Personal history of cervical/uterine cancers. Sister with premenopausal breast cancer. COMPARISONS: Comparison is made to exam dated: 08/01/2018 [facility]. BREAST TISSUE:There are scattered fibroglandular densities in both breasts. FINDINGS: No significant masses, calcifications, or other findings are seen in either breast. There has been no significant interval change. IMPRESSION: BI-RAD 1 NEGATIVE There is no mammographic evidence of malignancy. A 1 year screening mammogram is recommended. A letter will be sent to the patient with these results. The patient will be entered into a reminder system with a target due date of 1 year for her next screening exam. Electronically signed by: Renetta paez/penrad:12/06/2023 11:42:03 Pipe Organ Technician(s): ED JuaresR)(M), [facility] letter sent: Normal Exam Reading location: [facility] BI-RADS: 1 Negative Procedure Note Renetta Maloney MD - 12/06/2023 - DEMI SCREENING BILATERAL DIGITAL W CAD W IBIS BILATERAL DIGITAL SCREENING MAMMOGRAM 3D/2D WITH CAD WITH MEDIOLATERAL OBLIQUE CRANIOCAUDAL: 12/05/2023 The study was acquired using digital technology and interpreted from soft copy. Current study was also evaluated with Goby LLCD version 7.2. 2D digital mammographic views, as well as 3D digital tomosynthesis were performed in the CC and MLO projections. CLINICAL: Routine screening. Patient has no complaints. She has reduced range of motion. Personal history of cervical/uterine cancers. Sister with premenopausal breast cancer. COMPARISONS: Comparison is made to exam dated: 08/01/2018 [facility]. BREAST TISSUE:There are scattered fibroglandular densities in both breasts. FINDINGS: No significant masses, calcifications, or other findings are seen in either breast. There has been no significant interval change. IMPRESSION: BI-RAD 1 NEGATIVE There is no mammographic evidence of malignancy. A 1 year screening mammogram is recommended. A letter will be sent to the patient with these results. The patient will be entered into a reminder system with a target due date of 1 year for her next screening exam. Electronically signed by: Renetta paez/penrad:12/06/2023 11:42:03 Pipe Organ Technician(s): RT Blanquita(R)(M), [facility] letter sent: Normal Exam Reading location: [facility] BI-RADS: 1 Negative us Austyn Park APRN, [facility] ORDERA BLES Final Result * CT CHEST SCREENING WO (10/25/2023 12:27 PM CDT) Anatomical Region Laterality Modality Chest N/A Computed Tomogra phy 10/25/2023 3:46 PM CDT Impressions 10/25/2023 3:49 PM CDT IMPRESSION: 1. Unchanged 3 mm solid nodule posteriorly in the left upper lobe. No new pulmonary nodules. 2. Mild emphysematous changes to the lungs. Lung-RADS category 2: Benign appearance or behavior. Recommendation: Low dose Screening CT of chest in 12 months. Narrative 10/25/2023 3:49 PM CDT EXAM DESCRIPTION: CT CHEST SCREENING WO REASON FOR STUDY: Screening CT of the chest in a current smoker with a 21 pack year smoking history. Additional history: None. TECHNIQUE: Low dose CT scan of the chest was performed without intravenous contrast using helical scanning technique. The exam extends from the lung apices through the lung bases. Automatic exposure control was used as a dose optimization technique. NOTE: This study was performed for the specific purposes of lung cancer screening and is not an alternative to diagnostic chest CT. RADIATION DOSE: CT dose index volume (CTDIvol) = 3.62 mGy COMPARISON: CT chest 12/17/2021 FINDINGS: SMOKING RELATED LUNG DISEASE: There is biapical pleural-parenchymal scarring and there are mild emphysematous changes to the lungs. LUNG NODULES: Unchanged 3 mm solid nodule posteriorly in the left upper lobe on image 113. There are calcified granulomas. No new pulmonary nodules. CORONARY ARTERY CALCIFICATION: Positive OTHER: No pleural effusion or pneumothorax. The central airways are patent. Heart size is normal. There is no pericardial effusion or thickening. Thoracic aorta is normal in course and caliber and contains a tiny amount of calcified atherosclerotic plaque. There are no enlarged mediastinal, hilar, or axillary lymph nodes. The visualized portions of the upper abdomen are unremarkable. There is no suspicious osseous lesion. There is partially imaged ACDF hardware. THIS IS AN ELECTRONICALLY VERIFIED FINAL REPORT 10/25/2023 3:46 PM - Electronically signed by Suleiman Herring M.D. AM: AM Report ID: [id number] Reading Location: [id number] Procedure Note Suleiman Herring MD - 10/25/2023 EXAM DESCRIPTION: CT CHEST SCREENING WO REASON FOR STUDY: Screening CT of the chest in a current smoker with a 21 pack year smoking history. Additional history: None. TECHNIQUE: Low dose CT scan of the chest was performed without intravenous contrast using helical scanning technique. The exam extends from the lung apices through the lung bases. Automatic exposure control was used as a dose optimization technique. NOTE: This study was performed for the specific purposes of lung cancer screening and is not an alternative to diagnostic chest CT. RADIATION DOSE: CT dose index volume (CTDIvol) = 3.62 mGy COMPARISON: CT chest 12/17/2021 FINDINGS: SMOKING RELATED LUNG DISEASE: There is biapical pleural-parenchymal scarring and there are mild emphysematous changes to the lungs. LUNG NODULES: Unchanged 3 mm solid nodule posteriorly in the left upper lobe on image 113. There are calcified granulomas. No new pulmonary nodules. CORONARY ARTERY CALCIFICATION: Positive OTHER: No pleural effusion or pneumothorax. The central airways are patent. Heart size is normal. There is no pericardial effusion or thickening. Thoracic aorta is normal in course and caliber and contains a tiny amount of calcified atherosclerotic plaque. There are no enlarged mediastinal, hilar, or axillary lymph nodes. The visualized portions of the upper abdomen are unremarkable. There is no suspicious osseous lesion. There is partially imaged ACDF hardware. THIS IS AN ELECTRONICALLY VERIFIED FINAL REPORT 10/25/2023 3:46 PM - Electronically signed by Suleiman Herring M.D. AM: AM Report ID: [id number] Reading Location: [id number] IMPRESSION: 1. Unchanged 3 mm solid nodule posteriorly in the left upper lobe. No new pulmonary nodules. 2. Mild emphysematous changes to the lungs. Lung-RADS category 2: Benign appearance or behavior. Recommendation: Low dose Screening CT of chest in 12 months. Austyn Park APRN, DMITRIY IMG CT ORDERABLE S Final Result from Last 3 Months or Most Recently Relevant to Health Maintenance Insurance MEDICARE C [facility] [place] [id number] Advance Directives * Full Code (Latest Code Status on File) Date Activated Date Inactivated Comments 06/19/2017 7:52 PM 06/19/2017 11:25 PM CPR-Full Mariana tment: FULL ARREST: Attempt Resuscitation/CPR wit intubation and mechanical ventilation. PRE-ARREST: Use entire range of life support measures to stabilize the patient. * Full Code Date Activated Date Inactivated Comments 10/02/2015 3:21 PM 10/03/2015 10:42 AM CPR-Full Tr eatment: FULL ARREST: Attempt Resuscitation/CPR wit intubation and mechanical ventilation. PRE-ARREST: Use entire range of life support measures to stabilize the patient. Care Teams Senior Financial Analyst Relationship Specialty Start Date End Date Shad Lechuga MD [address] [address] PCP - General Family Medicine 07/20/18 Win Yusuf MD PhD [address] [place] [address] Neurosurgeon Neurological Surgery 05/13/19 Dania Rojo LSW [place] Grinder And Plater Signals Intelligence Superintendent 02/24/25
--- OUTSIDE RECORDS SUMMARY | 2025-05-14 07:26 | XMS_ITS ---
Author Organization [facility] Address [address] [facility] [address] [place] [address] Phone Care Team Providers Care Model Making Supervisor Name Role Phone Shad Lechuga MD Primary Care Provider [phone] Win Yusuf MD PhD Unavailable [phone] Dania Rojo ELECTRICAL SYSTEM SPECIALIST Unavailable Unavailab le [place] Chronic Condition Monitoring Status:Enrolled (Active) Start date:07/10/2024 Enrollment date:07/10/2024 Related social drivers of health:Social Connections, Alcohol Use, Tobacco Use, Financial Resource Strain, Stress, Physical Activity,Food Insecurity, Transportation Needs, Housing Stability, Utilities Related service episodes:[place] MENAFL Service Episode (Enrolling) Continued Care and Services Coordination
[2025-05-14 07:28] LABS: Hematocrit 42.7 % (35.0-49.0); Hemoglobin 13.8 g/dL (12.0-15.0); Immature Granulocyte Percent A 0.3 % (0.0-0.0); Lymphocytes Absolute Auto 1.63 K/mm3 (1.10-4.50); Mean Corpuscular HGB Conc 32.3 g/dL (32-36); Mean Corpuscular Hemoglobin 29.7 pg (27.0-31.0); Mean Corpuscular Volume 92.0 fL (78.0-102.0); Nucleated Red Blood Cells Absolute Auto 0.00 K/mm3 (0.00-0.00); Nucleated Red Blood Cells Perc 0.0 % (0-0.0); Platelet Count Result 170 K/mm3 (150-420); Red Blood Count 4.64 M/mm3 (4.20-5.40); White Blood Count 9.0 K/mm3 (4.8-10.8)
--- NOTE | 2025-05-14 07:30 | PC.NURSE ---
Pt back in room from CT scanner. RN unable to get peripheral access while at CT. RAJI Frias and RAJI El at bedside attempting peripheral access.
[2025-05-14 07:39] LABS: Alanine Aminotransferase 19 U/L (6-35); Albumin Level 4.3 g/dL (3.5-5.1); Alkaline Phosphatase 111 U/L (38-126); Anion Gap 11 mmol/L (4-12); Aspartate Amino Transferase 22 U/L (14-36); Bilirubin,Total 0.8 mg/dL (0.2-1.3); Blood Urea Nitrogen 10 mg/dL (7-17); Calcium 9.6 mg/dL (8.4-10.2); Carbon Dioxide 21 mmol/L (22-30); Chloride 107 mmol/L (98-107); Estimated Glomerular Filt Rate > 60; Glucose 139 mg/dL (65-110); Osmolality Calculated 289 mOsm/kg (285-295); Potassium 4.2 mmol/L (3.4-5.0); Sodium 139 mmol/L (137-145); Total Protein 6.7 g/dL (6.3-8.2)
[2025-05-14 07:42] LABS: INR 1.0; Partial Thromboplastin Time 23.7 Sec (23.9-30.70); Prothrombin Time 11.2 Seconds (9.50-12.1)
[2025-05-14 07:51] LABS: Troponin I < 0.012 ng/mL (0.000-0.034)
--- NOTE | 2025-05-14 08:09 | ED.NEUROSD ---
HPI - Neuro Symptoms/Deficit General Chief Complaint: Altered Mental Status Stated Complaint: rt side weakness Time Seen by Provider: 05/14/25 07:15 Source: patient, family and EMS Mode of arrival: EMS Limitations: no limitations History of Present Illness HPI Narrative: Patient is a 54-year-old female brought in by EMS for suspected stroke with right-sided weakness and an NIH score of 9. Upon initial examination, proceed with CT head and agree with appearance of CVA. Last known well time had changed 3 different times based on the Children's opinions. It appears we settled for 4:07 a.m.. Patient has seizure disorder and was out of her medicine and not taking anymore for the past 3 months. Last seizure was 1 year ago. Family came to see her this morning and found that she was on the floor with right-sided weakness on top of her right-sided weakness from prior CVA. She uses a walker or a cane typically to get around. Onset (ago): hour(s) (Three (patient presented at 3:00 a.m. from last known well however it was variable for a long time)) Last Observed Normal: 04:07 Timing confirmed by: family member (Daughter) Location: right face, dysarthria, right arm, right leg, ataxia and altered (Patient varies with altered mental status during her ER visit) History of same: Yes Severity: moderate Quality: improving Relieving factors: time Exacerbating factors: none Context: gradual onset On Anticoagulants: No Associated symptoms: confusion Treatments Prior to Arrival: Aspirin Related Data Home Medications ?Medication ?Instructions ?Recorded ?Confirmed ?Last Taken ?Type acetaminophen 500 mg tablet 500 mg PO Q6H PRN Pain 04/21/22 04/22/23 Unknown History (Acetaminophen Extra Strength) amlodipine 5 mg tablet 10 mg PO DAILY 04/21/22 04/22/23 04/22/23 History aspirin 81 mg tablet 81 mg PO DAILY 04/21/22 04/22/23 04/22/23 History atorvastatin 40 mg tablet 40 mg PO DAILY 04/21/22 04/22/23 04/21/23 History buspirone 10 mg tablet 15 mg PO TID 04/21/22 04/22/23 04/22/23 History clopidogrel 75 mg tablet 75 mg PO DAILY 04/21/22 04/22/23 04/22/23 History docusate sodium 100 mg capsule 100 mg PO BID 04/21/22 04/22/23 04/22/23 History famotidine 20 mg tablet 20 mg PO BID 04/21/22 04/22/23 04/22/23 History fluticasone propionate 50 50 mcg intranasal DAILY 04/21/22 04/22/23 04/22/23 History mcg/actuation nasal spray,suspension melatonin 3 mg tablet 3 mg PO HS PRN Insomnia 04/21/22 04/22/23 04/21/23 History olanzapine 10 mg tablet 10 mg PO BID 04/21/22 04/22/23 04/22/23 History sertraline 100 mg tablet 150 mg PO DAILY 04/21/22 04/22/23 04/22/23 History umeclidinium 62.5 mcg/actuation 62.5 mcg inhalation DAILY 04/21/22 04/22/23 04/22/23 History blister powder for inhalation (Incruse Ellipta) venlafaxine 150 mg 225 mg PO DAILY 04/21/22 04/22/23 04/22/23 History capsule,extended release 24 hr acetaminophen 300 mg-codeine 30 mg 1 tablet PO BID 04/22/23 04/22/23 04/22/23 History tablet diclofenac sodium 1 % topical gel 2 g topical BID 04/22/23 04/22/23 04/22/23 History ergocalciferol (vitamin D2) 1,250 1,250 mcg PO WEEKLY 04/22/23 04/22/23 04/18/23 History mcg (50,000 unit) capsule (Vitamin D2) icosapent ethyl 1 gram capsule 2 g PO BID 04/22/23 04/22/23 04/22/23 History (Vascepa) tiotropium bromide 18 mcg capsule 1 cap inhalation DAILY 04/22/23 04/22/23 Unknown History with inhalation device (Spiriva with HandiHaler) Allergies Allergy/AdvReac Type Severity Reaction Status Date / Time gabapentin Allergy Intermediate SEIZURES Verified 05/14/25 07:50 Penicillins Allergy Mild Unknown Verified 05/14/25 07:50 Iodine and Iodide Containing Allergy Difficulty Verified 05/14/25 07:50 Produc Breathing Review of Systems Review of Systems: All systems reviewed & are unremarkable except as noted in HPI and below Constitutional: Constitutional: Reports no additional constitutional complaints Eyes: Eyes: Reports no additional eye complaints ENT: Reports system reviewed and no additional complaints, except as documented Cardiovascular: Cardiovascular: Reports no additional cardiovascular complaints Respiratory: Respiratory: Reports no additional respiratory complaints Gastrointestinal: Gastrointestinal: Reports no additional gastrointestinal complaints Genitourinary: Genitourinary: Reports no additional female genitourinary complaints Musculoskeletal: Musculoskeletal: Reports no additional musculoskeletal complaints Integumentary/Breasts: Skin/Breast: Reports system reviewed and no additional complaints, except as docu Neurologic: Reports system reviewed and no additional complaints, except as documented Psychiatric: Psychiatric: Reports no additional psychiatric complaints Endocrine: Endocrine: Reports no additional endocrine complaints Hematologic/Lymphatic: Hematologic/Lymphatic: Reports no additional hematologic/lymphatic complaints Allergic/Immunologic: Allergic/Immunologic: Reports no additional allergic/immunologic complaints [facility] Past Medical History Medical History CVA (cerebral vascular accident) Exam Const: General: ill appearing Nutritional Appearance: well nourished Orientation/consciousness: confusion Limitations: altered mental status HENMT: Head: normal to inspection Ears: external ears normal Face/Nose/Sinus: Normal external nose present Eyes: Conjunctivae: conjunctivae normal Pupils: Equal, round and reactive pupils present EOM: EOMs intact bilaterally Neck: Neck: normal visual inspection Chest: Chest palpation & inspection: normal inspection of the chest Resp: Effort & Inspection: normal respiratory effort and not labored Auscultation: clear to auscultation bilaterally and no crackles Cardio: Rate: regular rate Rhythm: regular rhythm Heart sounds: no murmurs GI: Inspection: non-distended GI Palp: Yes Soft to palpation and No Tenderness to palpation present (GI) Auscultation: normal bowel sounds : General: Yes bladder normal to palpation Back/Spine/Pelvis: Back: no CVA tenderness Skin: General skin exam: normal color Rashes: no rashes Wounds: no wounds Neuro: General: moves all extremities, no meningeal signs, no focal motor deficits and CN's II-XI intact bilaterally Cranial nerves: Yes Nystagmus not present Speech: Abnormal speech present garbled Details: garbled Extrem: General: normal to inspection, no clubbing, cyanosis or edema and no pedal edema Psych: Mental Status: mental status grossly normal Affect: Anxious affect present Attitude: cooperative Course Vital Signs Vital signs: Vital Signs Pulse Rate 98 05/14/25 07:50 Respiratory Rate 20 05/14/25 07:50 Blood Pressure 160/91 H 05/14/25 07:50 Pulse Oximetry 98 05/14/25 07:50 Temperature 35.6 C L 05/14/25 07:51 Pulse Rate 100 05/14/25 09:00 Respiratory Rate 20 05/14/25 09:00 Blood Pressure 147/91 H 05/14/25 09:00 Pulse Oximetry 99 05/14/25 09:01 Oxygen Delivery Room Air 05/14/25 07:51 [facility] Narrative Medical decision making narrative: Patient is a 54-year-old female with prior 3 strokes in the past and a variable last known well today based on family presents to the emergency room with a right-sided and right face weakness with an NIH score of 9 with residual deficits mixed into this number and rapidly getting better deficits. Stroke workup with InStent CT scan of the head and entertain TNKase. Last known well is not clear but it appears 4:07 a.m. is the best 1 we have at this time. Patient presents to the emergency room at 7 5:00 a.m.. Patient came by ambulance. She has been off her seizure medicine for 3 months. Last seizure 1 year ago. Patient does not meet inclusion criteria for anti thrombosis medication due to unclear time frame last known well and current time and pending CT scan of the head put her outside 3-1/2 hours. Also, it is unclear if she had a seizure versus a CVA. I called neuro surgery/intervention at [facility] and they accepted the patient and will do a full review this morning and did not want anti thrombotic medication at this time. She is allergic to contrast and iodine so we have given her Benadryl and Solu-Medrol per neurology opinion so she can get CTA of the head when she arrives. Patient did not meet anti thrombotic due to the fact that last known well was variable and she missed the window based on the given values of time. Also she had what appears to be a seizure activity and possibly related changes due to that abnormality. She did urinate multiple times on herself to correlate with a seizure. She is also noncompliant/off her medicine for seizures. Differential Diagnosis Differential Diagnosis: CVA, seizure disorder Lab Data [facility] Lab Attestation statement: I personally reviewed the patient's lab results. 05/14/25 07:25 05/14/25 07:25 Labs: Lab Results 05/14/25 Range/Units 07:25 WBC 9.0 (4.8-10.8) K/mm3 RBC 4.64 (4.20-5.40) M/mm3 Hgb 13.8 (12.0-15.0) g/dL Hct 42.7 (35.0-49.0) % MCV 92.0 (78.0-102.0) fL MCH 29.7 (27.0-31.0) pg MCHC 32.3 (32-36) g/dL RDW 13.5 (11.6-14.4) % Plt Count 170 (150-420) K/mm3 MPV 11.6 (9.2-11.8) fl Immature Gran % (Auto) 0.3 H (0.0-0.0) % Neut % (Auto) 75.9 H (50.0-70.0) % Lymph % (Auto) 18.1 (18.0-42.0) % [place] % (Auto) 4.3 (2.0-11.0) % Eos % (Auto) 0.8 L (1.0-6.0) % Baso % (Auto) 0.6 (0.0-1.0) % Lymph # (Auto) 1.63 (1.10-4.50) K/mm3 [place] # (Auto) 0.39 (0.10-0.90) K/mm3 Eos # (Auto) 0.07 (0.02-0.50) K/mm3 Baso # (Auto) 0.05 (0.00-0.10) K/mm3 Abs Immat Gran (auto) 0.03 H (0.00-0.00) K/mm3 Absolute Neuts (auto) 6.83 (1.70-7.20) K/mm3 Absolute Nucleated RBC 0.00 (0.00-0.00) K/mm3 Nucleated RBC % 0.0 (0-0.0) % PT 11.2 (9.50-12.1) Seconds INR 1.0 APTT 23.7 L (23.9-30.70) Sec Sodium 139 (137-145) mmol/L Potassium 4.2 (3.4-5.0) mmol/L Chloride 107 (98-107) mmol/L Carbon Dioxide 21 L (22-30) mmol/L Anion Gap 11 (4-12) mmol/L BUN 10 (7-17) mg/dL Creatinine 0.86 (0.7-1.0) mg/dL Estim Creat Clear Calc Not Reportable Estimated GFR > 60 (59 - ) Glucose 139 H (65-110) mg/dL Calculated Osmolality 289 (285-295) mOsm/kg Calcium 9.6 (8.4-10.2) mg/dL Total Bilirubin 0.8 (0.2-1.3) mg/dL AST 22 (14-36) U/L ALT 19 (6-35) U/L Alkaline Phosphatase 111 (38-126) U/L Troponin I < 0.012 (0.000-0.034) ng/mL Total Protein 6.7 (6.3-8.2) g/dL Albumin 4.3 (3.5-5.1) g/dL Imaging Data Attestation: I personally reviewed and interpreted this imaging study as follows: Radiologist's impression: ITS Impressions Head CT 05/14/25 07:30 IMPRESSION: 1. Small old infarct in left cerebellum. 2. Mild nonspecific cerebral white matter disease, which likely represents chronic small vessel ischemic disease. Chest X-Ray 05/14/25 08:09 Impression: No acute cardiopulmonary abnormality. Shoulder X-Ray 05/14/25 08:46 Impression: 1: Mild polyarticular osteoarthritis. 2: Superior subluxation of the humeral head with narrowing of the subacromial space, suspicious for rotator cuff tear. Critical Care Time Critical Care Time Critical Care Time: Yes (40 minutes) Initial evaluation, discuss w/ involved parties, attempting to gather old records: N/A Documenting medical record: N/A Review of results (EKG's, labs, imaging): N/A Serial repeat bedside evaluation: N/A Discussing case with multiple memebers of the care team and consultants: N/A Total Critical Care Time: 0 Discharge Plan Discharge Clinical Impression: Cerebral vascular disease, Seizure disorder Patient Disposition: Acute Care Hospital Condition: Stable Patient Language: Bulgarian Prescriptions: No Action atorvastatin 40 mg tablet 40 mg PO DAILY sertraline 100 mg tablet 150 mg PO DAILY venlafaxine 150 mg capsule,extended release 24hr 225 mg PO DAILY olanzapine 10 mg tablet 10 mg PO BID clopidogrel 75 mg tablet 75 mg PO DAILY amlodipine 5 mg tablet 10 mg PO DAILY acetaminophen [Acetaminophen Extra Strength] 500 mg Tablet 500 mg PO Q6H PRN (Reason: Pain) famotidine 20 mg tablet 20 mg PO BID buspirone 10 mg tablet 15 mg PO TID fluticasone propionate 50 mcg/actuation spray,suspension 50 mcg INTRANASAL DAILY Rx Instructions: 1-2 sprays each nostril Incruse Ellipta 62.5 mcg/actuation blister with device 62.5 mcg INHALATION DAILY melatonin 3 mg Tablet 3 mg PO HS MDD 1 PRN (Reason: Insomnia) docusate sodium 100 mg Capsule 100 mg PO BID aspirin 81 mg Tablet 81 mg PO DAILY acetaminophen-codeine 300-30 mg tablet 1 tablet PO BID ergocalciferol (vitamin D2) [Vitamin D2] 1,250 mcg (50,000 unit) Capsule 1,250 mcg PO WEEKLY tiotropium bromide [Spiriva with HandiHaler] 18 mcg capsule, w/inhalation device 1 cap INHALATION DAILY diclofenac sodium 1 % gel 2 g TOPICAL BID icosapent ethyl [Vascepa] 1 gram capsule 2 g PO BID nitrofurantoin monohyd/m-cryst [Macrobid] 100 mg capsule 100 mg PO Q12H 7 Days Qty: 14 0RF Rx Instructions: must administer with a meal/food Follow-up/Referrals: Ankush,Shad Tsang MD [Primary Care Provider, Unknown] Time of Disposition: 08:18
--- NOTE | 2025-05-14 08:15 | PC.NURSE ---
Pt family at bedside stating that they are displeased that pt is not receiving any medication. Pt family educated by RN and MD Hannah about status of the pt and plan moving forward.
[2025-05-14] MEDS: SODIUM CHLORIDE 0.9% IV 1,000 ML 999 ML IV CONT (08:30)
--- NOTE | 2025-05-14 08:30 | PC.NURSE ---
STAT Stroke paged.
--- NOTE | 2025-05-14 08:30 | PC.NURSE ---
Pt in the door with EMS. NIH scale completed by the provider. Pt taken straight to CT scanner.
--- NOTE | 2025-05-19 11:50 | PC.NURSE ---
RN attempting to make contact with pt about shirt left from prior visit. Pt's number is disconnected. RN attempts to call pt's emergency contact. RN's call declined. No voicemail box.
== END 2025-05-14 09:04 | disposition short-term general hospital (02) ==
PROVIDERS: Emergency Provider Emergency Medicine; PCP Family Medicine
DX: I63.9 Cerebral infarction, unspecified (principal); R47.1 Dysarthria and anarthria; G81.91 Hemiplegia, unspecified affecting right dominant side; G40.909 Epilepsy, unspecified, not intractable, without status epilepticus; Z86.73 Personal history of transient ischemic attack (TIA), and cerebral infarction without residual deficits; Z91.148 Patient's other noncompliance with medication regimen for other reason
CPT/HCPCS: 36415; 70450; 71045; 73030; 80053; 82948; 84484; 85025; 85610; 85730; 93005; 96361; 96374; 96375; 99285; J1200; J2919; J7030

== ENCOUNTER 2025-05-28 11:36 | Inpatient (IN) | payer MEDICARE, SELFPAY ==
[2025-05-28] VITALS (19 sets, daily range): BP systolic 98–105; BP diastolic 60–78; PULSE 57–77; RESP 12–20; TEMP 36.4–36.6; O2SAT 96–99; BMI 24.5
--- NOTE | ~2025-05-28 | XR_ITS ---
EXAMINATION: XR shoulder RT min 2V DATE: 05/29/2025 15:09 INDICATION: Right shoulder pain post fall TECHNIQUE: AP and transscapular Y views of the right shoulder were obtained. COMPARISON: 05/14/2025 FINDINGS: Normal alignment. No fracture. Glenohumeral joint is normal. Mild to moderate acromioclavicular osteoarthritis. Soft tissues are unremarkable. Visualized portion of the right lung are clear. Partially visualized interbody fusion device for anterior spinal fusion at C6-C7. IMPRESSION: Mild to moderate right acromioclavicular osteoarthritis. No acute osseous abnormality. Reviewed, dictated and finalized at location A. REEL CUTTER IMPRESSION: Mild to moderate right acromioclavicular osteoarthritis. No acute osseous abnor mality.
--- NOTE | ~2025-05-28 | MR_ITS ---
EXAMINATION: MR brain/brain stem wo con DATE: 05/30/2025 09:43 INDICATION: Transient slurred speech and confusion recent stroke. TECHNIQUE: Magnetic resonance imaging (MRI) of the brain and brainstem was performed without intravenous contrast. Sequences included sagittal and axial T1-weighted SE, axial diffusion-weighted FS SE, axial 3D SWAN, axial T2-weighted FLAIR, and axial T2-weighted FSE. Apparent diffusion coefficient (ADC) maps were created. COMPARISON: None. FINDINGS: Moderate-sized region of restricted diffusion with associated cerebral edema involving portions of the left basal ganglia consistent with acute to subacute infarct. Small bilateral old cerebellar infarcts. No intracranial hemorrhage or abnormal intracranial mass lesion. There are scattered areas of nonspecific increased T2-weighted signal intensity in the cerebral white matter, predominantly involving the deep and periventricular white matter. The ventricles are symmetric and normal in size. There are no abnormal extra-axial fluid collections. Flow voids are seen in the cerebral arteries on the T2-w eighted sequences consistent with their expected patency. Visualized orbits and soft tissues are unremarkable. IMPRESSION: 1. Moderate-sized acute to subacute infarct involving significant portions of the left basal ganglia. 2. A couple small old infarcts at the bilateral cerebellar hemispheres. 3. Additional mild scattered mesenteric white matter T2 hyperintensity consistent with chronic small vessel ischemic disease. Reviewed, dictated and finalized at location A. ACE BUILDER IMPRESSION: 1. Moderate-sized acute to subacute infarct involving significant portions of t he left basal ganglia. 2. A couple small old infarcts at the bilateral cerebellar hemispheres. 3. Additional mild scattered mesenteric white matter T2 hyperintensity consiste nt with chronic small vessel ischemic disease.
--- NOTE | ~2025-05-28 | CT_ITS ---
CT HEAD NON-CONTRAST Clinical History: CVA, increased slurred speech, cva beginning of this month Comparison: 05/14/2025 Technique: Unenhanced axial images skull base to vertex Coronal, sagittal reformats CT images acquired with automatic exposure control for dose reduction DLP: 605 mGy-cm Findings: Ill-defined hypodensity left basal ganglia. Tiny chronic infarct left cerebellum. Sulci, ventricles: Unremarkable. No intracerebral hemorrhage. No mass effect, midline shift. Bony calvarium intact. Visualized paranasal sinuses: Clear. Mastoid air cells: Clear. IMPRESSION: 1. Infarct left basal ganglia, probably subacute to chronic. 2. Otherwise no acute intracranial abnormality. Reviewed, dictated and finalized at location R. STANT DEAN
--- NOTE | ~2025-05-28 | XR_ITS ---
EXAMINATION: XR chest 1V portable COMPARISON: No comparisons available. HISTORY: CVA FINDINGS: The lungs are clear, no effusion. No pneumothorax. Heart is normal size. Mediastinal and hilar contours are within normal limits. Bony thorax no acute abnormality. Miscellaneous: None Impression: No acute cardiopulmonary abnormality. Reviewed, dictated and finalized at location P. EL DEDENTING MACHINE OPERATOR Impression: No acute cardiopulmonary abnormality.
--- NOTE | 2025-05-28 11:39 | ECG_ITS ---
Test Date: 2025-05-28 11:53:39 Measurements Intervals [place] Rate: 58 P: 69 CA: 185 QRS: 63 QRSD: 92 T: 61 QT: 416 QTc: 409 Interpretive Statements SINUS BRADYCARDIA BORDERLINE ECG Compared to ECG 05/14/2025 07:28:53 HEART RATE HAS DECREASED Electronically Signed On 05-28-2025 12:20:28 LEAD SOFTWARE TESTER by Reyes Rivera D.O.
--- NOTE | 2025-05-28 11:41 | ED.NEUROSD ---
HPI - Neuro Symptoms/Deficit General Chief Complaint: Suspected CVA Stated Complaint: stroke like symptoms Time Seen by Provider: 05/28/25 11:38 History of Present Illness HPI Narrative: 54-year-old female with prior history of CVA on 05/14. Patient is currently at [facility]. Patient does have right-sided deficits that she feels is unchanged. Patient felt that her speech was slightly worsened and that she was having some increased memory issues today. Related Data Home Medications ?Medication ?Instructions ?Recorded ?Confirmed ?Last Taken ?Type atorvastatin 40 mg tablet 40 mg PO DAILY 04/21/22 05/28/25 05/28/25 History buspirone 10 mg tablet 10 mg PO BID 04/21/22 05/28/25 05/28/25 History clopidogrel 75 mg tablet 75 mg PO DAILY 04/21/22 05/28/25 05/28/25 History famotidine 20 mg tablet 20 mg PO BID 04/21/22 05/28/25 05/28/25 History fluticasone propionate 50 50 mcg intranasal BID PRN nasal 04/21/22 05/28/25 04/22/23 History mcg/actuation nasal congestion spray,suspension olanzapine 10 mg tablet 10 mg PO BID 04/21/22 05/28/25 05/28/25 History sertraline 100 mg tablet 50 mg PO DAILY 04/21/22 05/28/25 05/28/25 History venlafaxine 150 mg 150 mg PO DAILY 04/21/22 05/28/25 05/28/25 History capsule,extended release 24 hr albuterol sulfate 90 mcg/actuation 2 puff inhalation BID PRN 05/24/25 05/28/25 05/27/25 History aerosol inhaler (Ventolin HFA) shortness of breath or wheezing docusate sodium 250 mg capsule 250 mg PO BID 05/24/25 05/28/25 05/28/25 History hydrocodone 5 mg-acetaminophen 325 1 tablet PO Q4H PRN pain 05/24/25 05/28/25 05/28/25 History mg tablet tizanidine 4 mg tablet 4 mg PO BID PRN muscle spasticity 05/24/25 05/28/25 05/26/25 History trazodone 50 mg tablet 50 mg PO HS PRN sleep 05/24/25 05/28/25 Unknown History aspirin 81 mg tablet,delayed 81 mg PO DAILY 05/26/25 05/28/25 05/28/25 History release fluticasone propionate 50 1 spray intranasal BID PRN nasal 05/28/25 05/28/25 Unknown History mcg/actuation nasal congestion spray,suspension midodrine 5 mg tablet 5 mg PO TID 05/28/25 05/28/25 05/28/25 History tiotropium bromide 2.5 2 puff inhalation DAILY 05/28/25 05/28/25 05/28/25 History mcg/actuation mist for inhalation Allergies Allergy/AdvReac Type Severity Reaction Status Date / Time gabapentin Allergy Intermediate SEIZURES Verified 05/28/25 15:08 Penicillins Allergy Mild Unknown Verified 05/28/25 15:08 Iodine and Iodide Containing Allergy Difficulty Verified 05/28/25 15:08 Produc Breathing Review of Systems Review of Systems: All systems reviewed & are unremarkable except as noted in HPI and below PMFSH Past Medical History Medical History (Updated 05/28/25 @ 15:04 by Erin Germain APRN) Raynaud's phenomenon Rheumatoid arthritis Peripheral neuropathy CAD (coronary artery disease) Hepatitis C COPD (chronic obstructive pulmonary disease) HLD (hyperlipidemia) PTSD (post-traumatic stress disorder) Bipolar disorder Anxiety HTN (hypertension) Seizures CVA (cerebral vascular accident) 05/14: left MCA M1 occlusion with partial occlusion, left MCA M2 segment read as sub occlusive thrombosis vs collateral flow. 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 No significant stenosis involving proximal ICAs Surgical History Surgical History (Updated 05/28/25 @ 14:45 by Erin Germain APRN) History of lumbar fusion History of heart artery stent Family History Family History (Updated 05/28/25 @ 15:30 by Myrna Frazier RN) Mother Cerebrovascular accident Father Hypertension Sibling Cancer Social History Social History Smoking packs per day: 1 Smoking cigarettes per day: 20.0 Years smoked: 30 Smoking pack-years: 30.00 Smoking status: Former smoker Tobacco type: cigarettes Second hand tobacco smoke exposure: Yes Smoking end date: 05/23/25 Alcohol intake: former Substance use: never Substance use type: does not use, former substance user, crack/cocaine, heroin and amphetamines Lack of Transportation: No Lack of Food: Never True Current Housing: I Have Housing Concerned About Future Housing: No Difficulty Paying Gas/Electric Bills: No Difficulty Paying for Meds: YES Currently Unemployed: No Education: High School Diploma/GED Difficulty w/ Childcare or Family Care: No Spiritual care concerns: No Exam Narrative: APPEARANCE: Well appearing, no pain, no distress, well-nourished. HEAD: normocephalic, atraumatic. EYES: PERRLA/EOMI, conjunctivae clear. NOSE: Normal no drainage EARS:TMS clear with good light reflex. THROAT: Pharynx clear, no exudate. NECK: Supple. No adenopathy, no masses. RESPIRATORY: Airway patent, respirations nonlabored. Clear to auscultation bilaterally, no rales, rhonchi, wheezing. CARDIOVASCULAR: Regular rate and rhythm without murmurs rubs or gallops. ABDOMINAL: Soft, nontender, nondistended, normal bowel sounds MUSCULOSKELETAL: Right arm weakness at baseline NEURO: Alert. Alert and appropriate. No new deficits on neuro exam SKIN: Warm, dry. Normal Color Course Vital Signs Vital signs: Vital Signs Pulse Rate 58 L 05/28/25 11:53 Respiratory Rate 20 05/28/25 11:53 Pulse Oximetry 97 05/28/25 11:53 Temperature 97.5 F L 05/28/25 12:09 Pulse Rate 72 05/28/25 16:00 Respiratory Rate 14 05/28/25 15:00 Blood Pressure 103/72 05/28/25 14:30 Pulse Oximetry 99 05/28/25 15:00 Oxygen Delivery Room Air 05/28/25 15:00 [facility] Narrative Medical decision making narrative: 54-year-old female presents emergency department for evaluation for worsening confusion altered mental status. Patient was initially called as a code stroke but patient is alert worsening symptom was slurred speech and increased confusion and some memory loss. On re-evaluation patient states she does feel like she is back to her baseline. Patient is currently afebrile with no leukocytosis and hemoglobin of 12.9. INR is 1.0. Patient had negative troponin. UA was positive for infection as it was a cath sample was nitrate positive leukocyte esterase positive 50- 100 white blood cells and +4 bacteria. Urine culture was ordered and patient was started on IV Levaquin. Neurology was consulted for the altered mental status. CT brain showed no acute abnormality. Case will be discussed with hospitalist patient will be admitted for altered mental status. MRI was ordered. CTA was not available due to the patient's baseline allergies. Patient was updated on results of workup and plan for admission. On re-evaluation patient does feel improved. Differential Diagnosis Differential Diagnosis: Subdural hematoma, subarachnoid hemorrhage, CVA, UTI, seizure Lab Data MDM Lab Attestation statement: I personally reviewed the patient's lab results. 05/28/25 12:11 05/28/25 12:11 Labs: Lab Results 05/28/25 05/28/25 05/28/25 Range/Units 11:51 12:11 12:44 WBC 7.9 (4.5-10.0) K/mm3 RBC 4.24 (4.2-5.4) M/mm3 Hgb 12.9 (12.0-15.0) g/dL Hct 38.3 (37.0-47.0) % MCV 90.3 (80-100) fl MCH 30.4 (26-34) pg MCHC 33.7 (32-36) g/dl RDW 14.1 (11.5-14.5) % Plt Count 195 (150-375) k/mm3 MPV 11.8 H (7.4-10.4) fl Immature Gran % (Auto) 0.3 (0-0.5) % Neut % (Auto) 69.7 (45.5-73.1) % Lymph % (Auto) 21.7 (18.3-44.2) % [place] % (Auto) 5.9 (2.6-8.5) % Eos % (Auto) 1.9 (0-4.4) % Baso % (Auto) 0.5 (0.2-1.2) % Lymph # (Auto) 1.70 (0.9-3.2) K/mm3 [place] # (Auto) 0.5 (0.1-0.6) K/mm3 Eos # (Auto) 0.2 (0-0.3) K/mm3 Baso # (Auto) 0.0 (0.0-0.1) K/mm3 Abs Immat Gran (auto) 0.02 (0.00-0.031) K/mm3 Absolute Neuts (auto) 5.5 (1.3-6.7) K/mm3 Absolute Nucleated RBC 0.000 (0.0-0.012) K/mm3 Nucleated RBC % 0.0 (0.0-0.2) % PT 13.1 (11.1-14.7) Seconds INR 1.0 APTT 22.9 (22.3-36.8) Seconds Sodium 136 L (137-145) mmol/L Potassium 4.2 (3.4-5.0) mmol/L Chloride 106 (98-107) mmol/L Carbon Dioxide 24 (22-30) mmol/L Anion Gap 6 (4-12) mmol/L BUN 25 H D (7-17) mg/dL Creatinine 0.80 (0.7-1.0) mg/dL Estim Creat Clear Calc Not Reportable Estimated GFR > 60 (59 - ) Glucose 92 (65-110) mg/dL POC Capillary Glucose 96 (65-105) mg/dl Calcium 9.2 (8.4-10.2) mg/dL Total Bilirubin 0.6 (0.2-1.3) mg/dL AST 21 (14-36) U/L ALT 17 (6-35) U/L Alkaline Phosphatase 88 (38-126) U/L Troponin I < 0.012 (0.000-0.034) ng/mL Total Protein 6.2 L (6.3-8.2) g/dL Albumin 3.6 (3.5-5.1) g/dL Urine Color Yellow (Yellow) Urine Appearance Cloudy H (Clear) Urine pH 6.0 (5.0-9.0) Ur Specific [place] 1.013 (1.001-1.035) Urine Protein Negative (Negative) mg/dL Urine Glucose (UA) Negative (Negative) mg/dL Urine Ketones Negative (Negative) mg/dL Ur Blood (Man) Negative (Negative) Urine Nitrate Positive H (Negative) Urine Bilirubin Negative (Negative) Urine Urobilinogen 1.0 (<2.0) mg/dL Leukocyte Esterase Rfl 3+ H (Negative) ROGER/UL Urine RBC 0-2 (0-2) /hpf Urine WBC 51-100 H (0-3) /hpf Ur Squamous Epith Cells None seen (Few) /hpf Urine Bacteria 4+ H /hpf Urine Casts 0-2 Influenza A (RT-PCR) Negative (Negative) Influenza B (RT-PCR) Negative (Negative) RSV (RT-PCR) Negative (Negative) SARS-CoV-2 RNA (RT-PCR) Negative (Negative) Imaging Data Radiologist's impression: ITS Impressions Head CT 05/28/25 11:51 IMPRESSION: 1. Infarct left basal ganglia, probably subacute to chronic. 2. Otherwise no acute intracranial abnormality. Chest X-Ray 05/28/25 12:38 Impression: No acute cardiopulmonary abnormality. Discharge Plan Discharge Clinical Impression: AMS (altered mental status) Qualifiers: Altered mental status type: disorientation Qualified Code(s): R41.0 - Disorientation, unspecified Urinary tract infection Qualifiers: Urinary tract infection type: acute cystitis Hematuria presence: without hematuria Qualified Code(s): N30.00 - Acute cystitis without hematuria Patient Disposition: Still a Patient Condition: Serious
[2025-05-28 12:24] LABS: Hematocrit 38.3 % (37.0-47.0); Hemoglobin 12.9 g/dL (12.0-15.0); Immature Granulocyte Percent A 0.3 % (0-0.5); Lymphocytes Absolute Auto 1.70 K/mm3 (0.9-3.2); Mean Corpuscular HGB Conc 33.7 g/dl (32-36); Mean Corpuscular Hemoglobin 30.4 pg (26-34); Mean Corpuscular Volume 90.3 fl (80-100); Nucleated Red Blood Cells Absolute Auto 0.000 K/mm3 (0.0-0.012); Nucleated Red Blood Cells Perc 0.0 % (0.0-0.2); Platelet Count Result 195 k/mm3 (150-375); Red Blood Count 4.24 M/mm3 (4.2-5.4); White Blood Count 7.9 K/mm3 (4.5-10.0)
[2025-05-28 12:35] LABS: Alanine Aminotransferase 17 U/L (6-35); Albumin Level 3.6 g/dL (3.5-5.1); Alkaline Phosphatase 88 U/L (38-126); Anion Gap 6 mmol/L (4-12); Aspartate Amino Transferase 21 U/L (14-36); Bilirubin,Total 0.6 mg/dL (0.2-1.3); Blood Urea Nitrogen 25 mg/dL (7-17); Calcium 9.2 mg/dL (8.4-10.2); Carbon Dioxide 24 mmol/L (22-30); Chloride 106 mmol/L (98-107); Estimated Glomerular Filt Rate > 60; Glucose 92 mg/dL (65-110); Potassium 4.2 mmol/L (3.4-5.0); Sodium 136 mmol/L (137-145); Total Protein 6.2 g/dL (6.3-8.2)
[2025-05-28 12:36] LABS: INR 1.0; Partial Thromboplastin Time 22.9 Seconds (22.3-36.8); Prothrombin Time 13.1 Seconds (11.1-14.7)
[2025-05-28 12:46] LABS: Troponin I < 0.012 ng/mL (0.000-0.034)
[2025-05-28 12:56] LABS: Add Urine Microscopic? YES; Appearance Urine Cloudy (Clear); Glucose Urine UA Negative (Negative); Leukocyte Esterase Ur 3+ LEU/UL (Negative); Nitrate Urine Positive (Negative); Non Pathogenic Casts 0-2; Specific Grav Ur 1.013 (1.001-1.035)
[2025-05-28 12:58] LABS: Influenza A QL RT-PCR Negative (Negative); Influenza B QL RT-PCR Negative (Negative); RSV RNA, RT-PCR Negative (Negative); SARS-CoV-2 RNA PCR Negative (Negative)
--- OUTSIDE RECORDS SUMMARY | 2025-05-28 14:18 | XMS_ITS | Clinical Summary ---
Author Organization [facility] Address [address] [place] [address] Care Team Providers Care Convertible Top Installer Name Role Phone Shad Lechuga MD Primary Care Provider [phone] Allergies Active Allergy Reactions Criticality Noted Date Comments Gabapentin Seizure High 12/17/2018 Iodinated Contrast Media Other (see comment) 08/30/2018 Blood pressure dropped Penicillins Anaphylaxis High 12/17/2018 Medications aspirin EC (ASPIRIN EC) 81 MG tabletIndicati ons:Anticoagul ant Therapy Take 1 tablet (81 mg total) by mouth daily. Indications: Anticoagulant Therapy Active atorvastatin 40 MG tabletIndicati ons:Hyperchole sterolemia Take 1 tablet (40 mg total) by mouth daily. Indications: High Amount of Cholesterol in the Blood Active venlafaxine XR 150 MG 24 hr capsuleIndicat ions:PTSD Take 1 capsule (150 mg total) by mouth daily. Indications: PTSD Active fluticasone propionate 50 MCG/ACT nasal spray 1 spray by Nasal route 2 (two) times daily as needed for Rhinitis or Allergies. Active trazodone 50 MG tablet Take 1 tablet (50 mg total) by mouth nightly as needed for Sleep. Active albuterol sulfate HFA (VENTOLIN HFA) 108 (90 Base) MCG/ACT inhaler Inhale 2 puffs into the lungs 2 (two) times daily as needed. 9 Active hydrocodone-ac etaminophen 5-325 MG tablet Take 1 tablet by mouth every 4 (four) hours as needed. 20 tablet 9 Active docusate sodium 250 MG capsuleIndicat ions:Constipat ion Take 1 capsule (250 mg total) by mouth 2 (two) times daily. 60 capsule 9 Active busPIRone 10 MG tablet Take 1 tablet (10 mg total) by mouth 2 (two) times daily. Active Umeclidinium [place] 62.5 MCG/INH AEROSOL POWDER, BREATH ACTIVATED Inhale 1 puff into the lungs daily. Active sertraline 50 MG tablet Take 1 tablet (50 mg total) by mouth daily. Active OLANZapine 10 MG tablet Take 1 tablet (10 mg total) by mouth 2 (two) times a day. Active famotidine 20 MG tablet Take 1 tablet (20 mg total) by mouth 2 (two) times daily. Active tiZANidine 4 MG tablet Take 1 tablet (4 mg total) by mouth 2 (two) times daily as needed. Active clopidogrel (PLAVIX) 75 MG tablet Take 1 tablet (75 mg total) by mouth daily. 84 tablet Active Active Problems Problem Noted Date Diagnosed Date Stroke 05/14/2025 Expressive aphasia 09/30/2021 Received intravenous tissue plasminogen activator (tPA) in emergency department 09/30/2021 Stage 3 chronic kidney disease 09/30/2021 Obesity due to excess calories 09/30/2021 CVA (cerebral vascular accident) 09/29/2021 S/P laparoscopic hysterectomy 12/20/2018 Encounters Date Type Department Care Team Description 05/17/2025 Travel 05/14/2025 10:12 AM [facility] - 05/24/2025 3:52 PM [facility] Hospital Encounter [facility] Neurology [address] [place] [address] Willis Ortega MD Ahmad, Saad N, MD Rimawi, Ahmad H, MD Kallan, Abubaker, MD Mahmoud, Anas, MD Discharge Disposition: Inpatient Rehab Facility 05/14/2025 Travel from Last 3 Months Family History Relation Status Comments Father Mother [...] of Binge Drinking Not on file 01/2019 Humiliation, Afraid, Rape, a nd Kick questionnaire Answer Date Recorded Within the last year, have y ou been afraid of your partner or ex-partner? Patient unable to answer 05/14/2025 Within the last year, have y ou been humiliated or emotionally abused in other ways by your partner or ex-partner? Patient unable to answer 05/14/2025 Within the last year, have y ou been kicked, hit, slapped, or otherwise physically hurt by your partner or ex-partner? Patient unable to answer 05/14/2025 Within the last year, have y ou been raped or forced to have any kind of sexual activity by your partner or ex-partner? Patient unable to answer 05/14/2025 AUDIT-C Answer Date Recorded Q1: How often do you have a drink containing alcohol? Patient unable to answer 05/14/2025 Q2: How many drinks containi ng alcohol do you have on a typical day when you are drinking? Patient unable to answer Q3: How often do you have si x or more drinks on one occasion? Patient unable to answer 05/14/2025 Overall Financial Resource Strain (CARDIA) Answe r Date Recorded How hard is it for you to pa y for the very basics like food, housing, medical care, and heating? Patient unable to answer 05/14/2025 Hunger Vital Sign Answer Date Recorded Within the past 12 months, y ou worried that your food would run out before you got the money to buy more. Patient unable to answer 05/14/2025 Ran Out of Food in the Last Year Patient unable to answer 05/14/2025 PRAPARE - Transportation Answer Date Re corded In the past 12 months, has l ack of transportation kept you from medical appointments or from getting medications? Patient unable to answer 05/14/2025 In the past 12 months, has l ack of transportation kept you from meetings, work, or from getting things needed for daily living? Patient unable to answer 05/14/2025 Housing Stability Vital Sign Answer Shimon e Recorded In the last 12 months, was t here a time when you were not able to pay the mortgage or rent on time? Patient unable to answer 05/14/2025 Number of Times Moved in the Last Year 0 05/14/2025 Homeless in the Last Year Patient unable to answ er 05/14/2025 [facility] Utilities Answer Date Recorded In the past 12 months has e electric, gas, oil, or water company threatened to shut off services in your home? Patient unable to answer 05/14/2025 Comments Unknown Sex and Gender Information Value Date Recorded Sex Assigned at Female 05/15/2025 1:03 PM [facility] Legal Sex Female 11:03 PM CDT Gender Identity Not on file Sexual Orientation Not on file Last Filed Vital Signs Vital Sign Reading Time Taken Comments Blood Pressure 101/75 05/24/2025 11:36 AM [facility] Pulse 67 05/24/2025 11:36 AM [facility] Temperature 36.4 C (97.5 F) 05/24/2025 11:36 AM [facility] Respiratory Rate 13 05/23/2025 7:54 PM [facility] Oxygen Saturation 97% 05/24/2025 11:36 AM [facility] Inhaled Oxygen Concentration - - Weight 79.4 kg (175 lb 0.7 oz) 05/14/2025 4:04 P M [facility] Height 172.7 cm (5' 7.99) 05/14/2025 4:04 PM CS T Body Mass Index 26.62 05/14/2025 4:04 PM [facility] Plan of Treatment Health Maintenance Due Date Last Done Comments Cervical Cancer Screening Pap Smear (Age 30 to 64) Every 3 Years 1968 Colorectal Cancer Screening Colonoscopy (10 Years) 1968 Annual Physical 10/13/1971 Hepatitis C 1986 DTaP, Tdap and Td Vaccines (1 - Tdap) 10/13/1987 Hepatitis B Vaccines (1 of 3 - 19+ 3-dose series) 10/13/1987 Zoster Vaccines (1 of 2) 2018 Cervical Cancer Screening Pap with HPV Testing (Age 30 to 64) Every 5 Years 05/31/2022 05/31/2017 Cervical Cancer Screening with HPV 05/31/2022 COVID-19 Vaccine (3 - season) 2025 01/28/2021, 12/30/2020 Influenza Adult (#1) 2025 04/19/2023, 03/20/2022, 08/04/2021, Additional history exists Mammogram Screening 12/04/2025 12/05/2023, 9 Pneumococcal Vaccine: 50+ Years (3 of 3 [...] appropriate support at home upon discharge Charissa Romeo RN Procedures Procedure Name Priority Date/Time Associated Diagnosis Comments XR HIP ANN MARIE 2V+PELVIS Today 05/24/2025 11:46 AM [facility] POCT GLUCOSE - DOCKED DEVICE Routine 05/24/2025 11:[address] HEAD WO CON STAT 05/24/2025 6:45 AM [facility] POCT GLUCOSE - DOCKED DEVICE Routine 05/23/2025 5:37 PM [facility] POCT GLUCOSE - DOCKED DEVICE Routine 05/23/2025 12:23 PM [facility] POCT GLUCOSE - DOCKED DEVICE Routine 05/23/2025 5:52 AM [facility] POCT GLUCOSE - DOCKED DEVICE Routine 05/22/2025 11:29 PM [facility] POCT GLUCOSE - DOCKED DEVICE Routine 05/22/2025 4:41 PM [facility] POCT GLUCOSE - DOCKED DEVICE Routine 05/22/2025 11:08 AM [facility] POCT GLUCOSE - DOCKED DEVICE Routine 05/22/2025 6:06 AM [facility] POCT GLUCOSE - DOCKED DEVICE Routine 05/21/2025 11:28 PM [facility] POCT GLUCOSE - DOCKED DEVICE Routine 05/21/2025 4:11 PM [facility] POCT GLUCOSE - DOCKED DEVICE Routine 05/21/2025 10:59 AM [facility] POCT GLUCOSE - DOCKED DEVICE Routine 05/21/2025 6:12 AM [facility] POCT GLUCOSE - DOCKED DEVICE Routine 05/21/2025 1:07 AM [facility] POCT GLUCOSE - DOCKED DEVICE Routine 05/20/2025 12:17 PM [facility] POCT GLUCOSE - DOCKED DEVICE Routine 05/20/2025 6:29 AM [facility] BASIC METABOLIC PANEL Routine 05/20/2025 4:44 AM [facility] HC CBC W/O DIFF Routine 05/20/2025 4:44 AM [facility] POCT GLUCOSE - DOCKED DEVICE Routine 05/20/2025 12:17 AM [facility] USE ECHOCARDIOGRAM W CON Today 05/19/2025 1:02 PM [facility] POCT GLUCOSE - DOCKED DEVICE Routine 05/19/2025 11:50 AM [facility] POCT GLUCOSE - DOCKED DEVICE Routine 05/19/2025 5:33 AM [facility] BASIC METABOLIC PANEL Routine 05/19/2025 5:08 AM [facility] HC CBC W/O DIFF Routine 05/19/2025 5:08 AM [facility] POCT GLUCOSE - DOCKED DEVICE Routine 05/19/2025 12:31 AM [facility] POCT GLUCOSE - DOCKED DEVICE Routine 05/18/2025 6:09 PM [facility] POCT GLUCOSE - DOCKED DEVICE Routine 05/18/2025 12:19 PM [facility] POCT GLUCOSE - DOCKED DEVICE Routine 05/18/2025 5:28 AM [facility] BASIC METABOLIC PANEL Routine 05/18/2025 5:05 AM [facility] HC CBC W/O DIFF Routine 05/18/2025 5:05 AM [facility] POCT GLUCOSE - DOCKED DEVICE Routine 05/18/2025 12:02 AM [facility] POCT GLUCOSE - DOCKED DEVICE Routine 05/17/2025 6:07 PM [facility] XR SPEECH SWALLOW SJS ONLY Routine 05/17/2025 2:15 PM [facility] POCT GLUCOSE - DOCKED DEVICE Routine 05/17/2025 12:05 PM [facility] POCT GLUCOSE - DOCKED DEVICE Routine 05/17/2025 6:25 AM [facility] COMPREHENSIVE METABOLIC PANEL Routine 05/17/2025 4:57 AM [facility] HC CBC AUTO W/AUTO DIFF Routine 05/17/2025 4:57 AM [facility] POCT GLUCOSE - DOCKED DEVICE Routine 05/17/2025 12:01 AM [facility] POCT GLUCOSE - DOCKED DEVICE Routine 05/16/2025 9:59 PM [facility] POCT GLUCOSE - DOCKED DEVICE Routine 05/16/2025 9:19 PM [facility] POCT GLUCOSE - DOCKED DEVICE Routine 05/16/2025 5:57 PM [facility] POCT GLUCOSE - DOCKED DEVICE Routine 05/16/2025 12:42 PM [facility] POCT GLUCOSE - DOCKED DEVICE Routine 05/16/2025 6:26 AM [facility] POCT GLUCOSE - DOCKED DEVICE Routine 05/16/2025 5:59 AM [facility] COMPREHENSIVE METABOLIC PANEL Routine 05/16/2025 5:13 AM [facility] HC CBC AUTO W/AUTO DIFF Routine 05/16/2025 5:13 AM [facility] MRI BRAIN WO STROKE FAST PROTOCOL Today 05/15/2025 11:55 PM [facility] POCT GLUCOSE - DOCKED DEVICE Routine 05/15/2025 5:56 PM [facility] POCT GLUCOSE - DOCKED DEVICE Routine 05/15/2025 12:31 PM [facility] EEG SLEEP DEPRIVED Routine 05/15/2025 10 :49 AM [facility] POCT GLUCOSE - DOCKED DEVICE Routine 05/15/2025 6:07 AM [facility] MAGNESIUM Routine 05/15/2025 4:32 AM [facility] COMPREHENSIVE METABOLIC PANEL Routine 05/15/2025 4:32 AM [facility] HC CBC AUTO W/AUTO DIFF Routine 05/15/2025 4:32 AM [facility] LIPID PANEL Routine 05/15/2025 4:[address] SHOULDER RT WO CON Today 05/14/2025 8:47 PM [facility] POCT GLUCOSE - DOCKED DEVICE Routine 05/14/2025 7:50 PM [facility] LACTIC ACID Routine 05/14/2025 5:32 PM [facility] POCT GLUCOSE - DOCKED DEVICE Routine 05/14/2025 4:15 PM [facility] EEG ROUTINE Routine 05/14/2025 2:49 PM [facility] URINE BACTERIA CULTURE Nurse Collected Priority 05/14/2025 2:30 PM [facility] URINALYSIS Nurse Collected Priority 05/14/2025 2:30 PM [facility] DRUG SCREEN RAPID Nurse Collected Priority 05/14/2025 2:30 PM [facility] CK (CPK) Routine 05/14/2025 1:08 PM [facility] PROTHROMBIN TIME, VENOUS STAT 05/14/2025 1:08 PM [facility] BASIC METABOLIC PANEL STAT 05/14/2025 1:08 PM [facility] HC CBC AUTO W/AUTO DIFF STAT 05/14/2025 1:08 PM [facility] HEMOGLOBIN, GLYCOSYLATED Routine 05/14/2025 1:08 PM [facility] ECG 12-LEAD STAT 05/14/2025 12:25 PM [facility] CTA HEAD+NECK STAT 05/14/2025 10:31 AM [facility] HPV MRNA E6/E7 Routine 05/31/2017 5:04 PM [facility] from Last 3 Months or Most Recently Relevant to Health Maintenance Results * XR HIP ANN MARIE 2V+PELVIS (05/24/2025 11:46 AM [facility]) Anatomical Region Laterality Modality Hip, Pelvis Radiographic Char ging 05/24/2025 12:0 0 PM [facility] Impressions 05/24/2025 12:00 PM [facility] IMPRESSION: No acute findings. Ordered By: JOHN PENA Interpreted By: Shine Saldaña MD, 05/24/2025 12:00 PM Narrative 05/24/2025 12:00 PM [facility] [address] [address] SINGLE VIEW OF THE PELVIS AND 2 VIEWS OF THE RIGHT AND LEFT HIP Clinical History: Pain Comparison: None A single AP view of the pelvis and 2 views of the right and left hip demonstrate the bony elements to be intact. There is no evidence of fracture or dislocation. . The surrounding soft tissues are within normal limits. Procedure Note Shine Saldaña MD - 05/24/2025 [facility] [address] [place], [place] [address] SINGLE VIEW OF THE PELVIS AND 2 VIEWS OF THE RIGHT AND LEFT HIP Clinical History: Pain Comparison: None A single AP view of the pelvis and 2 views of the right and left hipdemonstrate the bony elements to be intact. There is no evidence offracture or dislocation. . The surrounding soft tissues are within normallimits. IMPRESSION: No acute findings. Ordered By: JOHN PENA Interpreted By: Shine Saldaña MD, 05/24/2025 12:00 PM John Pena MD GENERAL IMAGING Final Res ult * POCT glucose (05/24/2025 11:42 AM [facility]) Only the most recent of38 resultswithin the time period is included. GLUCOSE POC 81 70 - 109 05/24/2025 11:56 AM [facility] 05/24/2025 11:4 2 AM [facility] Yesenia Braxton MD POCT ORDERABLES - DEVICE Final R esult [facility] [address] [place] [address], [id number] * CT HEAD WO CON (05/24/2025 6:45 AM [facility]) Anatomical Region Laterality Modality Head Computed Tomogra phy 05/24/2025 7:19 AM [facility] Impressions 05/24/2025 7:21 AM [facility] IMPRESSION: No acute findings Ordered By: JOHN PENA Interpreted By: Shine Saldaña MD, 05/24/2025 7:19 AM Narrative 05/24/2025 7:21 AM [facility] [address] [place], [place] [address] CT HEAD WITHOUT CONTRAST Exam date: 05/24/2025 7:19 AM Clinical history: Injury from fall Technique: 3 mm collimated axial images of the head were obtained without contrast. A dose lowering technique was used for this procedure, which may include, but is not limited to, dose reduction technique, automated exposure control, the use of iterative reconstruction, and ALARA (As Low As Reasonably Achievable) / Image Gently techniques. Comparison: May 14, 2025 FINDINGS: Images of the head demonstrate no evidence of acute or chronic intracranial hemorrhage. No masses or mass effects are seen. The ventricles and sulci are symmetric. There is no evidence of midline shift. And evolving infarct involving left basal ganglia is unchanged compared to an MRI dated May 15, 2025. No extra-axial fluid collections are noted. The cerebellum is unchanged Bone windows reveal the paranasal sinuses and mastoid air cells to appear clear. There is no evidence of fracture. Procedure Note Shine Saldaña MD - 05/24/2025 [facility] [address] [place], [place] [address] CT HEAD WITHOUT CONTRAST Exam date: 05/24/2025 7:19 AM Clinical history: Injury from fall Technique: 3 mm collimated axial images of the head were obtained withoutcontrast. A dose lowering technique was used for this procedure, which mayinclude, but is not limited to, dose reduction technique, automatedexposure control, the use of iterative reconstruction, and ALARA (As LowAs Reasonably Achievable) / Image Gently techniques. Comparison: May 14, 2025 FINDINGS: Images of the head demonstrate no evidence of acute or chronicintracranial hemorrhage. No masses or mass effects are seen. Theventricles and sulci are symmetric. There is no evidence of midline shift.And evolving infarct involving left basal ganglia is unchanged comparedto an MRI dated May 15, 2025. No extra- axial fluid collections arenoted. The cerebellum is unchanged Bone windows reveal the paranasal sinuses and mastoid air cells to appearclear. There is no evidence of fracture. IMPRESSION: No acute findings Ordered By: JOHN PENA Interpreted By: Shine Saldaña MD, 05/24/2025 7:19 AM us John Pena MD CT Final Res ult * (ABNORMAL) CBC, AUTO, NO DIFF (05/20/2025 4:44 AM [facility]) Only the most recent of3 resultswithin the time period is included. WBC 5.92 4.00 - 10.80 x10'3/uL 05/20/2025 4:55 AM [facility] RBC 4.65 4.10 - 5.40 x10'6/uL 05/20/2025 4:55 AM [facility] HGB 13.9 12.0 - 16.0 G/DL 05/20/2025 4:55 AM [facility] HCT 41.4 36.0 - 47.0 % 05/20/2025 4:55 AM [facility] MCV 89.0 78.0 - 100.0 FL 05/20/2025 4:55 AM [facility] MCH 29.9 27.0 - 31.0 PG 05/20/2025 4:55 AM [facility] MCHC 33.6 33.0 - 36.0 G/DL 05/20/2025 4:55 AM [facility] RDW 13.8 11.5 - 14.5 % 05/20/2025 4:55 AM [facility] PLT 175 150 - 350 x10'3/uL 05/20/2025 4:55 AM [facility] MPV 11.2(H) 7.4 - 10.4 FL 05/20/2025 4:55 AM [facility] BLOOD VENOUS BLOOD SPECIMEN / Unknown 05/20/2025 4:44 AM [facility] Elham Contreras MD LABORATORY Final Result [facility] [address] [place] [address], [id number] * (ABNORMAL) BASIC METABOLIC PANEL (05/20/2025 4:44 AM [facility]) Only the most recent of4 resultswithin the time period is included. SODIUM S/P/B 139 136 - 145 MMOL/L 05/20/2025 5:18 AM [facility] POTASSIUM S/P/B 3.9 3.5 - 5.1 MMOL/L 05/20/2025 5:18 AM [facility] CHLORIDE S/P/B 109 97 - 115 MMOL/L 05/20/2025 5:18 AM [facility] CO2 26.3 21.0 - 32.0 MMOL/L 05/20/2025 5:18 AM [facility] GLUCOSE 108(H) 74 - 106 MG/DL 05/20/2025 5:18 AM [facility] BUN 11 7 - 18 MG/DL 05/20/2025 5:18 AM [facility] CREATININE S/P/B 0.77 0.55 - 1.02 MG/DL 05/20/2025 5:18 AM [facility] CALCIUM S/P/B 9.1 8.5 - 10.1 MG/DL 05/20/2025 5:18 AM [facility] ANION GAP 3.7 2.0 - 10.0 MMOL/L 05/20/2025 5:18 AM [facility] OSMOLALITY (CALC) 288 MOSM/KG 025 5:18 AM [facility] Comment:REFERENCE RANGE NOT ESTABLISHED GFR ESTIMATE >90 >90 ML/MIN/1. 73 M2 05/20/2025 5:18 AM [facility] GFR NOTES GFR REFERENCE S: 05/20/2025 5:18 AM [facility] Comment: THE ESTIMATED GFR IS CALCULATED USING THE 2020 CKD-EPI EQUATION. THE FOLLOWING CATEGORIES FOR GRADING RENAL FUNCTION ARE RECOMMENDED BY THE INTERNATIONAL SOCIETY OF NEPHROLOGY (KDIGO 2012 CLINICAL PRACTICE GUIDELINE). G1,NORMAL OR HIGH: >89 ml/min/1.73 m2 G2,MILDLY DECREASED: 60-89 ml/min/1.73 m2 G3A,MILDLY TO MODERATELY DECREASED: 45-59 ml/min/1.73 m2 G3B,MODERATELY TO SEVERELY DECREASED: 30-44 ml/min/1.73 m2 G4,SEVERELY DECREASED: 15-29 ml/min/1.73 m2 G5,KIDNEY FAILURE: <15 ml/min/1.73 m2 BLOOD VENOUS BLOOD SPECIMEN / Unknown 05/20/2025 4:44 AM [facility] us Elham Contreras MD LABORATORY Final Result [facility] [address] [place], [place] [address], [id number] * USE ECHOCARDIOGRAM W CON (05/19/2025 1:02 PM [facility]) Anatomical Region Laterality Modality NA Echocardiogram 05/19/2025 11:3 1 AM [facility] Narrative 05/20/2025 9:18 AM [facility] Echocardiography Report Pat.Name: LOUIS PINTO Pat.ID: [id number] St.Date: 05/19/2025 Refer.: [id number], ISMA MITTAL Exam Time: 11:31:00 AM Study Type:ECHO W/CONTRAST COMPLETE Height: 67 in Weight: 175 lb BSA: 1.91 m2 Age: 5 1970,54Y Sex: F BP: 142/85 HR: 81 bpm Sonogrphr: Génesis Jackson [facility] Pat. Stat.:Inpatient Room: 816 CPT - 4: C8929 Reason for Study:Stroke/TIA Procedures: 2D, M-mode, Doppler, Color Flow, Definity was used to enhance endocardial definition. Intraveneous saline contrast was used to help determine presence of intracardiac shunting. Race: W ++++++++++++++++++++++++++++++++++++ SUMMARY: ++++++++++++++++++++++++++++++++++++ The left ventricular size is normal. The left ventricular systolic function is normal. Estimated left ventricular ejection fraction is 60%. Mild concentric left ventricular hypertrophy. Left ventricular relaxation is impaired. The right ventricle is normal. The agitated saline injection did not demonstrate left to right shunting. Unable to reliably quantitate pulmonary systolic pressure. Trace mitral regurgitation. Mildly calcified posterior mitral annulus. ++++++++++++++++++++++++++++++++++++ FINDINGS: ++++++++++++++++++++++++++++++++++++ LV: The left ventricular size is normal. The left ventricular systolic function is normal. Estimated left ventricular ejection fraction is 60%. Mild concentric left ventricular hypertrophy. The average E/e' is indeterminate at 9-12 and EF is > or equal to 50. Left ventricular relaxation is impaired. RV: The right ventricle size is normal. The right ventricular function is normal. LA: Left atrial size is normal. RA: The right atrial size is normal. IAS: The agitated saline injection showed no clear evidence of shunting into the left atrium, consistent with no patent foramen ovale. HECTOR: No evidence of pericardial effusion. PA: Unable to reliably quantitate pulmonary systolic pressure. SVn: Inferior vena cava is normal. AV: The aortic valve is trileaflet. No aortic regurgitation. MV: Trace mitral regurgitation. No evidence of mitral valve stenosis. Mildly calcified posterior mitral annulus. PV: No evidence of pulmonic valve stenosis. No evidence of pulmonic regurgitation. Pulmonic valve not well visualized. TV: No evidence of tricuspid regurgitation. The tricuspid valve is not well visualized. ++++++++++++++++++++++++++++++++++++ MEASUREMENTS: ++++++++++++++++++++++++++++++++++++ 2D Left Ventricle LVIDd 3.39 cm (3.6-5.2)+* LV EF(Bi-Plane) 67.3 % (55-75) LVIDs 2.18 cm (2.3-3.9)* LVPW LVPWd 1.56 cm Ventricular Septum IVSd 1.57 cm LVOT LVOT 2.02 cm Ratios IVS LA Biplane LAVol I BP 22.4 ml/m2 Right Ventricle Right Ventricul 18.6 cm2 Right Ventricul 52.2 % Right Ventricul 8.9 cm2 MMODE Left Atrium LAID 3.7 cm (1.9-4) Ratios LA/Ao 1.09 (0.87-1.1) Aorta Ao Rt 3.4 cm (2-3.7) DOPPLER LVOT LVOTpkPG 5 mmHg LVOTmnPG 2 mmHg LVOTpkVel 111 cm/s (70-110)* LVOT SV 58 ml LVOT TVI 18.2 cm AV Forward Flow AV TVI 21.7 cm AV pkPG 7 mmHg AV pkVel 131 cm/s (100-170) Area (TVI) 2.68 cm2 (3-5)* AV mnVel 84.1 cm/s Area (Abelardo) 2.71 cm2 (3-5)* AV mnPG 3 mmHg MV Forward Flow MV DeTm 307 msec MV pkPG 7 mmHg MVA P1/2t 2.44 cm2 (4-6)* MV E/A 0.6 MV P1/2t 90 msec (30-60)+* MV pkE 72.8 cm/s (60-130) MV mnPG 3 mmHg MV pkA 116 cm/s PV Forward Flow PV TVI 16 cm PV mnVel 62 cm/s PV pkVel 80.3 cm/s (60-90) PV mnPG 2 mmHg PV pkPG 3 mmHg RVOT RVOTpkV 63.9 cm/s RVOT TVI 9.93 cm Lat E' Lat e 7.4 cm/s Lat E/E' Lat E/e 9.8 Med E' Med e 7.29 cm/s Med E/E' Med E/e 10 Aortic Valve Aortic Valve Ar 1.4 Aortic Valve Ve 0.85 AV DI Value 0.8 KENISHA (VTI) Index Value 1.41 LV Mass 2D Value 244 g LV Mass [id number] Value 128 g/m2 RA Volume Atrial Vanegas 4.11 cm Atrial Vanegas 11 cm2 Atrial Vanegas 23.8 ml Right Ventricle Right Ventricle 13.6 cm/s <Electronic Signature> 05/20/2025 09:18 AM Ten Marmolejo M.D. Procedure Note Ten Marmolejo MD - 05/20/2025 Echocardiography Report Pat.Name: LOUIS PINTO Pat.ID: [id number] .Date: 05/19/2025 Antonio.: [id number] TODD Exam Time: 11:31:00 AM Study Type:ECHO W/CONTRAST COMPLETE Height: 67 in Weight: 175 lb BSA: 1.91 m2 Age: 5 1970,54Y Sex: F BP: 142/85 HR: 81 bpm Sonogrphr: Génesis Jackson [facility] Pat. Stat.:Inpatient Room: 816 CPT - 4: C8929 Reason for Study:Stroke/TIA Procedures: 2D, M-mode, Doppler, Color Flow, Definity was used to enhance endocardial definition. Intraveneous saline contrast was used to help determine presence of intracardiac shunting. Race: W ++++++++++++++++++++++++++++++++++++ SUMMARY: ++++++++++++++++++++++++++++++++++++ The left ventricular size is normal. The left ventricular systolic function is normal. Estimated left ventricular ejection fraction is 60%. Mild concentric left ventricular hypertrophy. Left ventricular relaxation is impaired. The right ventricle is normal. The agitated saline injection did not demonstrate left to right shunting. Unable to reliably quantitate pulmonary systolic pressure. Trace mitral regurgitation. Mildly calcified posterior mitral annulus. ++++++++++++++++++++++++++++++++++++ FINDINGS: ++++++++++++++++++++++++++++++++++++ LV: The left ventricular size is normal. The left ventricular systolic function is normal. Estimated left ventricular ejection fraction is 60%. Mild concentric left ventricular hypertrophy. The average E/e' is indeterminate at 9-12 and EF is > or equal to 50. Left ventricular relaxation is impaired. RV: The right ventricle size is normal. The right ventricular function is normal. LA: Left atrial size is normal. RA: The right atrial size is normal. IAS: The agitated saline injection showed no clear evidence of shunting into the left atrium, consistent with no patent foramen ovale. HECTOR: No evidence of pericardial effusion. PA: Unable to reliably quantitate pulmonary systolic pressure. SVn: Inferior vena cava is normal. AV: The aortic valve is trileaflet. No aortic regurgitation. MV: Trace mitral regurgitation. No evidence of mitral valve stenosis. Mildly calcified posterior mitral annulus. PV: No evidence of pulmonic valve stenosis. No evidence of pulmonic regurgitation. Pulmonic valve not well visualized. TV: No evidence of tricuspid regurgitation. The tricuspid valve is not well visualized. ++++++++++++++++++++++++++++++++++++ MEASUREMENTS: ++++++++++++++++++++++++++++++++++++ 2D Left Ventricle LVIDd 3.39 cm (3.6-5.2)+* LV EF(Bi-Plane) 67.3 % (55-75) LVIDs 2.18 cm (2.3-3.9)* LVPW LVPWd 1.56 cm Ventricular Septum IVSd 1.57 cm LVOT LVOT 2.02 cm Ratios IVS LA Biplane LAVol I BP 22.4 ml/m2 Right Ventricle Right Ventricul 18.6 cm2 Right Ventricul 52.2 % Right Ventricul 8.9 cm2 MMODE Left Atrium LAID 3.7 cm (1.9-4) Ratios LA/Ao 1.09 (0.87-1.1) Aorta Ao Rt 3.4 cm (2-3.7) DOPPLER LVOT LVOTpkPG 5 mmHg LVOTmnPG 2 mmHg LVOTpkVel 111 cm/s (70-110)* LVOT SV 58 ml LVOT TVI 18.2 cm AV Forward Flow AV TVI 21.7 cm AV pkPG 7 mmHg AV pkVel 131 cm/s (100-170) Area (TVI) 2.68 cm2 (3-5)* AV mnVel 84.1 cm/s Area (Abelardo) 2.71 cm2 (3-5)* AV mnPG 3 mmHg MV Forward Flow MV DeTm 307 msec MV pkPG 7 mmHg MVA P1/2t 2.44 cm2 (4-6)* MV E/A 0.6 MV P1/2t 90 msec (30-60)+* MV pkE 72.8 cm/s (60-130) MV mnPG 3 mmHg MV pkA 116 cm/s PV Forward Flow PV TVI 16 cm PV mnVel 62 cm/s PV pkVel 80.3 cm/s (60-90) PV mnPG 2 mmHg PV pkPG 3 mmHg RVOT RVOTpkV 63.9 cm/s RVOT TVI 9.93 cm Lat E' Lat e 7.4 cm/s Lat E/E' Lat E/e 9.8 Med E' Med e 7.29 cm/s Med E/E' Med E/e 10 Aortic Valve Aortic Valve Ar 1.4 Aortic Valve Ve 0.85 AV DI Value 0.8 KENISHA (VTI) Index Value 1.41 LV Mass 2D Value 244 g LV Mass [id number] Value 128 g/m2 RA Volume Atrial Vanegas 4.11 cm Atrial Vanegas 11 cm2 Atrial Vanegas 23.8 ml Right Ventricle Right Ventricle 13.6 cm/s <Electronic Signature> 05/20/2025 09:18 AM Ten Marmolejo M.D. Elham Contreras MD ECHO Final Result * XR SPEECH SWALLOW SJS ONLY (05/17/2025 2:15 PM HOURLY SHIFT) Anatomical Region Laterality Modality NA Fluoroscopy 05/17/2025 2:52 PM HOURLY SHIFT Impressions 05/17/2025 3:49 PM HOURLY SHIFT IMPRESSION: A single episode of aspiration of thin liquids by cup as detailed above. Please see speech pathologist report for more detailed discussion and for recommendations. The attending radiologist was available during the critical portions of the examination, has reviewed the images, and agrees with the content of this report. Dictated By: José Azevedo MD on 05/17/2025 2:52 PM The attending radiologist has reviewed the image(s) and agrees with the content of this report. Referred By: ISMA MITTAL Interpreted By: José Azevedo MD, 05/17/2025 2:52 PM Narrative 05/17/2025 3:49 PM HOURLY SHIFT [facility] [address], [place] [address] [facility] [address], [place] [address] EXAMINATION: XR SPEECH SWALLOW SJS ONLY DATE: 05/17/2025 2:02 PM INDICATION: 54 years Female. Dysphagia. Stroke. COMPARISON: None available. TECHNIQUE: Modified barium swallowing study was performed with the speech pathologist in attendance and videotape record maintained. The patient was challenged with varying consistencies of barium. A total of 2.5 minutes of fluoroscopy time was utilized. Reference air Kerma (Ka.r): 7.7 mGy. FINDINGS: There is a normal initiation of voluntary swallowing and subsequent primary contraction of the cervical esophagus. 1. Honey by spoon: Mild residual. No laryngeal penetration or tracheal aspiration. 2. Honey by spoon: Moderate residual. No laryngeal penetration or tracheal aspiration. 3. Pudding by spoon: mild residual. No laryngeal penetration or tracheal aspiration. 4. Pudding by spoon: Mild residual. No laryngeal penetration or tracheal aspiration. 5. Maskell by spoon: No laryngeal penetration or tracheal aspiration. 6. Maskell by spoon: Flash penetration. No tracheal aspiration. 7. Maskell by straw: Flash penetration with ejection. No tracheal aspiration. 8. thin liquids by spoon: Flash penetration with ejection. 9. Thin liquids by cup: Penetration without ejection. 10. Solid consistency with thin liquid by cup with swallow: Aspiration with cough reflex. Incomplete ejection with cough. 11. Pudding by spoon: No laryngeal penetration or tracheal aspiration. 12. Maskell consistency by cup: Laryngeal penetration. No tracheal aspiration. Procedure Note Eric King MD - 05/17/2025 [facility] [address], [place] [address] [facility] [address], [place] [address] EXAMINATION: XR SPEECH SWALLOW SJS ONLY DATE: 05/17/2025 2:02 PM INDICATION: 54 years Female. Dysphagia. Stroke. COMPARISON: None available. TECHNIQUE: Modified barium swallowing study was performed with the speechpathologist in attendance and videotape record maintained. The patientwas challenged with varying consistencies of barium. A total of 2.5 minutes of fluoroscopy time was utilized. Reference air Kerma (Ka.r): 7.7 mGy. FINDINGS: There is a normal initiation of voluntary swallowing and subsequentprimary contraction of the cervical esophagus. 1. Honey by spoon: Mild residual. No laryngeal penetration or trachealaspiration. 2. Honey by spoon: Moderate residual. No laryngeal penetration or trachealaspiration. 3. Pudding by spoon: mild residual. No laryngeal penetration or trachealaspiration. 4. Pudding by spoon: Mild residual. No laryngeal penetration or trachealaspiration. 5. Maskell by spoon: No laryngeal penetration or tracheal aspiration. 6. Maskell by spoon: Flash penetration. No tracheal aspiration. 7. Maskell by straw: Flash penetration with ejection. No trachealaspiration. 8. thin liquids by spoon: Flash penetration with ejection. 9. Thin liquids by cup: Penetration without ejection. 10. Solid consistency with thin liquid by cup with swallow: Aspirationwith cough reflex. Incomplete ejection with cough. 11. Pudding by spoon: No laryngeal penetration or tracheal aspiration. 12. Maskell consistency by cup: Laryngeal penetration. No trachealaspiration. IMPRESSION: A single episode of aspiration of thin liquids by cup as detailed above.Please see speech pathologist report for more detailed discussion and forrecommendations. The attending radiologist was available during the critical portions ofthe examination, has reviewed the images, and agrees with the content ofthis report. Dictated By: José Azevedo MD on 05/17/2025 2:52 PM The attending radiologist has reviewed the image(s) and agrees with thecontent of this report. Referred By: ISMA MITTAL Interpreted By: José Azevedo MD, 05/17/2025 2:52 PM Ze Rapp MD FLUOROSCOPY Final Result * (ABNORMAL) COMPREHENSIVE METABOLIC PANEL (05/17/2025 4:57 AM HOURLY SHIFT) Only the most recent of3 resultswithin the time period is included. SODIUM S/P/B 143 136 - 145 MMOL/L 05/17/2025 7:18 AM [facility] POTASSIUM S/P/B 3.7 3.5 - 5.1 MMOL/L 05/17/2025 7:18 AM [facility] Comment:SLIGHT HEMOLYSIS, RE SULT MAY BE AFFECTED. CHLORIDE S/P/B 111 97 - 115 MMOL/L 05/17/2025 7:18 AM [facility] CO2 25.2 21.0 - 32.0 MMOL/L 05/17/2025 7:18 AM [facility] GLUCOSE 107(H) 74 - 106 MG/DL 05/17/2025 7:18 AM [facility] BUN 20(H) 7 - 18 MG/DL 05/17/2025 7:18 AM [facility] CREATININE S/P/B 0.93 0.55 - 1.02 MG/DL 05/17/2025 7:18 AM [facility] CALCIUM S/P/B 9.6 8.5 - 10.1 MG/DL 05/17/2025 7:18 AM [facility] BILIRUBIN TOTAL S/P/B 0.8 0.2 - 1.0 MG/DL 05/17/2025 7:18 AM [facility] ALKALINE PHOSPHATASE S/P/B 109 46 - 118 U/L 05/17/2025 7:18 AM [facility] AST 27 15 - 37 U/L 05/17/2025 7:18 AM HOURLY SHIFT [facility] ALT 31 13 - 56 U/L 05/17/2025 7:18 AM HOURLY SHIFT [facility] TOTAL PROTEIN S/P/B 6.2(L) 6.4 - 8.2 G/DL 05/17/2025 7:18 AM [facility] ALBUMIN S/P/B 3.4 3.4 - 5.0 G/DL 05/17/2025 7:18 AM HOURLY SHIFT [facility] ANION GAP 6.8 2.0 - 10.0 MMOL/L 05/17/2025 7:18 AM HOURLY SHIFT [facility] OSMOLALITY (CALC) 299 MOSM/KG 025 7:18 AM [facility] Comment:REFERENCE RANGE NOT ESTABLISHED GFR ESTIMATE 72(L) >90 ML/MIN/1. 73 M2 05/17/2025 7:18 AM HOURLY SHIFT [facility] GFR NOTES GFR REFERENCE S: 05/17/2025 7:18 AM [facility] Comment: THE ESTIMATED GFR IS CALCULATED USING THE 2020 CKD-EPI EQUATION. THE FOLLOWING CATEGORIES FOR GRADING RENAL FUNCTION ARE RECOMMENDED BY THE INTERNATIONAL SOCIETY OF NEPHROLOGY (KDIGO 2012 CLINICAL PRACTICE GUIDELINE). G1,NORMAL OR HIGH: >89 ml/min/1.73 m2 G2,MILDLY DECREASED: 60-89 ml/min/1.73 m2 G3A,MILDLY TO MODERATELY DECREASED: 45-59 ml/min/1.73 m2 G3B,MODERATELY TO SEVERELY DECREASED: 30-44 ml/min/1.73 m2 G4,SEVERELY DECREASED: 15-29 ml/min/1.73 m2 G5,KIDNEY FAILURE: <15 ml/min/1.73 m2 BLOOD VENOUS BLOOD SPECIMEN / Unknown 05/17/2025 4:57 AM HOURLY SHIFT us Carmen Cardozo NP LABORATORY Final Result [facility] [address] [place] [address], [id number] * (ABNORMAL) CBC W/DIFF AUTOMATED (05/17/2025 4:57 AM HOURLY SHIFT) Only the most recent of4 resultswithin the time period is included. WBC 6.16 4.00 - 10.80 x10'3/uL 05/17/2025 5:24 AM [facility] RBC 4.96 4.10 - 5.40 x10'6/uL 05/17/2025 5:24 AM [facility] HGB 14.8 12.0 - 16.0 G/DL 05/17/2025 5:24 AM [facility] HCT 44.8 36.0 - 47.0 % 05/17/2025 5:24 AM [facility] MCV 90.3 78.0 - 100.0 FL 05/17/2025 5:24 AM [facility] MCH 29.8 27.0 - 31.0 PG 05/17/2025 5:24 AM [facility] MCHC 33.0 33.0 - 36.0 G/DL 05/17/2025 5:24 AM [facility] RDW 13.7 11.5 - 14.5 % 05/17/2025 5:24 AM [facility] PLT 182 150 - 350 x10'3/uL 05/17/2025 5:24 AM [facility] MPV 11.7(H) 7.4 - 10.4 FL 05/17/2025 5:24 AM [facility] DIFFERENTIAL TYPE AUTOMATED DIFFERENTIAL 05/17/2025 5:24 AM [facility] SEG NEUTROPHILS 63.3 % 5:24 AM [facility] LYMPHOCYTES 28.1 % 05/17/2025 5:24 AM [facility] MONOCYTES 6.7 % 05/17/2025 5:24 AM [facility] EOSINOPHILS 1.1 % 05/17/2025 5:24 AM [facility] BASOPHILS 0.6 % 05/17/2025 5:24 AM [facility] IMMATURE GRANS % 0.2 % 05/17/20 5:24 AM [facility] ABS. NEUTROPHILS 3.90 1.60 - 8.30 x10'3/uL 05/17/2025 5:24 AM [facility] ABS. LYMPHOCYTES 1.73 0.80 - 4.70 x10'3/uL 05/17/2025 5:24 AM HOURLY SHIFT [facility] ABS. MONOCYTES 0.41 0.00 - 1.50 x10'3/uL 05/17/2025 5:24 AM [facility] ABS. EOSINOPHILS 0.07 0.00 - 0.40 x10'3/uL 05/17/2025 5:24 AM [facility] ABS. BASOPHILS 0.04 0.00 - 0.20 x10'3/uL 05/17/2025 5:24 AM [facility] ABS. IMMATURE GRANULOCYTES 0.01 0.00 - 0.03 x10'3/uL 05/17/2025 5:24 AM [facility] ABS. NUCLEATED RBC'S 0.00 0.00 - 0.01 x10'3/uL 05/17/2025 5:24 AM [facility] NRBC % 0.0 % 05/17/2025 5:24 AM [facility] BLOOD VENOUS BLOOD SPECIMEN / Unknown 05/17/2025 4:57 AM HOURLY SHIFT us Carmen Cardozo NP LABORATORY Final Result [facility] [address] [place] [address], [phone] * MRI BRAIN WO STROKE FAST PROTOCOL (05/15/2025 11:55 PM HOURLY SHIFT) Anatomical Region Laterality Modality Head, Neck Magnetic Resonan ce 05/16/2025 12:4 3 AM HOURLY SHIFT Impressions 05/16/2025 12:47 AM HOURLY SHIFT IMPRESSION: ===== 1. Acute nonhemorrhagic infarct involving anterior left basal ganglia and overlying external capsule. 2. Small vessel ischemic disease. Referred By: ISMA MITTAL Interpreted By: Doni Prado MD, 05/16/2025 12:43 AM Narrative 05/16/2025 12:47 AM HOURLY SHIFT [facility] [address], [place] [address] EXAMINATION: MRI brain without contrast. EXAM DATE/TIME: 05/15/2025 10:20 PM REASON FOR EXAM: ORDERING PROVIDER COMMENT: rule out stroke Garbled speech, left-sided facial droop COMPARISON: CT head for 2121. Brain MRI 09/29/2021 TECHNIQUE: Axial only limited sequence fast stroke protocol MRI of the brain was obtained without the use of IV contrast agent. FINDINGS: Moderate sized region of abnormal increased signal on diffusion- weighted imaging involving the anterior and lateral left basal ganglia extending into the deep left temporal lobe. Corresponding low ADC signal in the same location. No additional areas of acute infarct appreciated. The ventricles are normal in size and symmetric. Scattered FLAIR signal abnormalities are seen in the periventricular deep white matter. No acute intracranial hemorrhage. Paranasal sinuses clear. Orbital contents grossly unremarkable. Visualized portion of parotid glands unremarkable. No evidence of mass, mass effect, or midline shift. ===== Procedure Note Doni Prado MD - 05/16/2025 [facility] [address], [place] [address] EXAMINATION: MRI brain without contrast. EXAM DATE/TIME: 05/15/2025 10:20 PM REASON FOR EXAM: ORDERING PROVIDER COMMENT: rule out stroke Garbled speech, left-sided facial droop COMPARISON: CT head for 2121. Brain MRI 09/29/2021 TECHNIQUE: Axial only limited sequence fast stroke protocol MRI of thebrain was obtained without the use of IV contrast agent. FINDINGS: Moderate sized region of abnormal increased signal ondiffusion- weighted imaging involving the anterior and lateral left basalganglia extending into the deep left temporal lobe. Corresponding low ADCsignal in the same location. No additional areas of acute infarctappreciated. The ventricles are normal in size and symmetric. ScatteredFLAIR signal abnormalities are seen in the periventricular deep whitematter. No acute intracranial hemorrhage. Paranasal sinuses clear.Orbital contents grossly unremarkable. Visualized portion of parotidglands unremarkable. No evidence of mass, mass effect, or midlineshift. ===== IMPRESSION: ===== 1. Acute nonhemorrhagic infarct involving anterior left basal ganglia andoverlying external capsule. 2. Small vessel ischemic disease. Referred By: ISMA MITTAL Interpreted By: Doni Prado MD, 05/16/2025 12:43 AM Carmen Cardozo MRI Final Result * EEG routine (05/15/2025 10:49 AM HOURLY SHIFT) Narrative [facility] - 05/15/2025 10:49 AM HOURLY SHIFT Francisco Riggs MD 05/15/2025 10:52 AM EEG REPORT Date of Study: 05/15/2025 SUMMARY This is an abnormal study. There is diffuse slowing and disorganization of the background rhythms. These findings indicate the presence of a mild encephalopathy of unspecified etiology. There are no epileptic or lateralizing features. Clinical History: The patient is a 54-year-old woman with altered mental status. There is a reported history of seizures. Current Inpatient Meds: aspirin 300 mg Rectal Daily Or aspirin 324 mg Oral Daily aztreonam 2 g Intravenous Q8H heparin (porcine) 5,000 Units Subcutaneous 3 times per day nicotine 1 patch Transdermal Q24H normal saline 5-10 mL Intravenous Q12H tiotropium 2 puff Inhalation Daily RT Description of Recording: This 22 channel EEG was performed utilizing the International 10-20 system for standard electrode placement. It captures the awake drowsy and light sleep states. It is a good quality study. During the awake state, the background activity over the posterior head regions does reach 8 Hz. It is disorganized. This activity attenuates with eye opening. There is also low amplitude, frontocentrally-predominant beta activity seen during wakefulness. There are no lateralizing features. There is very frequent mild (5-7 Hz) slowing seen diffusely. This does appear to be reactive to stimulation. Activation Procedures: Photic stimulation was performed and was unremarkable. There was no photoparoxysmal response. Sleep: Sleep stages N1 was seen. No abnormalities were seen. Epileptiform abnormalities: None Francisco Riggs MD NEUROLOGY ORDERABLES Final Result Performing Organization Address [facility] de Phone Number [facility] [address] [place] [address], [id number] * MAGNESIUM (05/15/2025 4:32 AM HOURLY SHIFT) MAGNESIUM 2.1 1.6 - 2.6 MG/DL 05/15/2025 5:40 AM [facility] BLOOD VENOUS BLOOD SPECIMEN / Unknown 05/15/2025 4:32 AM HOURLY SHIFT Carmen Cardozo NP LABORATORY Final Result Performing Organization Address [facility] de Phone Number [facility] [address] [place] [address], [phone] * LIPID PANEL (05/15/2025 4:32 AM HOURLY SHIFT) CHOLESTEROL 167 MG/DL 05/15/2025 5:40 AM [facility] Comment:DESIRABLE: <200 TRIGLYCERIDES 112 MG/DL 05/15/2025 5:40 AM [facility] Comment:<150 NORMAL HDL 57 >49 MG/DL 05/15/2025 5:40 AM [facility] LDL (CALCULATED) 88 MG/DL 05/15/20 5:40 AM HOURLY SHIFT [facility] Comment: <100 OPTIMAL CALCULATED USING THE FRIEDEWALD EQUATION VLDL CALCULATION 22 MG/DL 05/15/20 5:40 AM HOURLY SHIFT [facility] Comment:REFERENCE RANGE NOT ESTABLISHED CHOL/HDL RATIO 2.9 05/15/2025 5:40 AM HOURLY SHIFT [facility] Comment:REFERENCE RANGE NOT ESTABLISHED LDL/HDL 1.5 05/15/2025 5:40 AM HOURLY SHIFT [facility] Comment:REFERENCE RANGE NOT ESTABLISHED NON HDL CHOLESTEROL 110 MG/DL 05/15/2025 5:40 AM HOURLY SHIFT [facility] Comment:REFERENCE RANGE NOT ESTABLISHED BLOOD VENOUS BLOOD SPECIMEN / Unknown 05/15/2025 4:32 AM HOURLY SHIFT Carmen Cardozo NP LABORATORY Final Result Performing Organization Address City/State/[facility] Co de Phone Number [facility] [address] [place] [address], [phone] * CT SHOULDER RT WO CON (05/14/2025 8:47 PM HOURLY SHIFT) Anatomical Region Laterality Modality Shoulder Computed Tomogra phy 05/16/2025 12:0 2 AM HOURLY SHIFT Impressions 05/16/2025 12:06 AM HOURLY SHIFT IMPRESSION: No acute osseous abnormality. No full-thickness tendon tear or retraction of rotator cuff. No rotator cuff muscle atrophy. Small rotator cuff tears not evaluated by CT. MRI would be needed. Referred By: ISMA MITTAL Interpreted By: Henry Mehta MD, 05/16/2025 12:02 AM Narrative 05/16/2025 12:06 AM HOURLY SHIFT [facility] [address], [place] [address] Examination: CT SHOULDER RT WO CON Exam time: 05/14/2025 8:32 PM Indication: Right shoulder pain with family report of rotator cuff injury; also here for tx CVA Hx CVA x 3 (previously admitted to [facility] September 2021), CAD s/p stent, prior lumbar fusion, prior neck surgery, COPD, emphysema, HTN, HLD, schizophrenia, hepatitis C, peripheral neuropathy, Raynaud's phenomenon, rheumatoid arthritis, chronic pain syndrome, and history of seizures secondary to gabapentin Comparison: None Findings: CT right shoulder without contrast, A dose lowering technique was used for this procedure, which may include, but is not limited to, dose reduction technique, automated exposure control, iterative reconstruction, ALARA (As Low As Reasonably Achievable), or Image Gently techniques. Minimal degenerative osseous changes. No bone lesion. No bony erosion or osteomyelitis. No fracture or dislocation. No muscle hematoma or swelling or joint effusion. No rotator cuff or muscle atrophy. No evidence of full-thickness rotator cuff tendon tear and retraction. Fine detail of muscles is not performed on CT. MRI would be needed. C-spine hardware and degenerative changes. Emphysema and lung scarring. No adenopathy. Procedure Note Henry Mehta MD - 05/16/2025 [place] [id number] Examination: CT SHOULDER RT WO CON Exam time: 05/14/2025 8:32 PM Indication: Right shoulder pain with family report of rotator cuff injury;also here for tx CVA Hx CVA x 3 (previously admitted to [facility] September 2021), CAD s/p stent, priorlumbar fusion, prior neck surgery, COPD, emphysema, HTN, HLD,schizophrenia, hepatitis C, peripheral neuropathy, Raynaud's phenomenon,rheumatoid arthritis, chronic pain syndrome, and history of seizuressecondary to gabapentin Comparison: None Findings: CT right shoulder without contrast, A dose lowering techniquewas used for this procedure, which may include, but is not limited to,dose reduction technique, automated exposure control, iterativereconstruction, ALARA (As Low As Reasonably Achievable), or Image Gentlytechniques. Minimal degenerative osseous changes. No bone lesion. No bony erosion orosteomyelitis. No fracture or dislocation. No muscle hematoma orswelling or joint effusion. No rotator cuff or muscle atrophy. Noevidence of full-thickness rotator cuff tendon tear and retraction. Finedetail of muscles is not performed on CT. MRI would be needed. C-spinehardware and degenerative changes. Emphysema and lung scarring. Noadenopathy. IMPRESSION: No acute osseous abnormality. No full-thickness tendon tear or retraction of rotator cuff. No rotatorcuff muscle atrophy. Small rotator cuff tears not evaluated by CT. MRIwould be needed. Referred By: ISMA MITTAL Interpreted By: Henry Mehta MD, 05/16/2025 12:02 AM Carmen Cardozo NP CT Final Result * LACTIC ACID - SINGLE (05/14/2025 5:32 PM HOURLY SHIFT) LACTIC ACID VENOUS 1.4 0.4 - 2.0 MMOL/L 05/14/2025 6:03 PM HOURLY SHIFT [facility] BLOOD VENOUS BLOOD SPECIMEN / Unknown 05/14/2025 5:32 PM HOURLY SHIFT Carmen Cardozo NP LABORATORY Final Result [facility] [address] [place] [address], [phone] * EEG (05/14/2025 2:49 PM HOURLY SHIFT) Narrative Nancy Dee I [employer] - 05/14/2025 2:49 PM HOURLY SHIFT Nancy Dee [employer] 05/20/2025 7:08 AM Attempted to do EEG. Half of leads were on, patient sat up and pulled leads off as she sat up and stated she was going to the restroom and smoke. AMS and combative. Message was sent to the ordering provider, he said to cancel order. Gabino Malin [employer] NEUROLOGY ORDERABLE S Edited Result - Final * CULTURE, URINE (05/14/2025 2:30 PM HOURLY SHIFT) SPEC DESCRIPTION URINE CLEAN CATCH 05/14/2025 3:42 PM HOURLY SHIFT [facility] SPECIAL REQUESTS NO SPECIAL REQUEST 05/14/2025 3:42 PM HOURLY SHIFT [facility] CULTURE RESULT >50,000 TO 99,999 CFU/mL ESCHERICHIA COLI 05/17/2025 8:43 AM HOURLY SHIFT [facility] URINE URINE SPECIMEN OBTAINED BY CLEAN CATCH PROCEDURE / Unknown 05/14/2025 2:30 PM HOURLY SHIFT 05/14/2025 6:46 PM HOURLY SHIFT Narrative Organism Antibiotic Method Susceptibility Escherichia coli AMPICILLIN KIAN (VITEK) Resistant Escherichia coli AMOXICILLIN/CLAVULANIC A KIAN (VITEK) INTERMEDIATE: Intermediate Escherichia coli AZTREONAM KIAN (VITEK) Sensitive Escherichia coli CEFEPIME KIAN (VITEK) Sensitive Escherichia coli CEFTRIAXONE KIAN (VITEK) Sensitive Escherichia coli CEFAZOLIN KIAN (VITEK) Sensitive Escherichia coli CIPROFLOXACIN KIAN (VITEK) Sensitive Escherichia coli ESBL KIAN (VITEK) NEG: Sensitive Escherichia coli ERTAPENEM KIAN (VITEK) Sensitive Escherichia coli NITROFURANTOIN KIAN (VITEK) Sensitive Escherichia coli GENTAMICIN KIAN (VITEK) Sensitive Escherichia coli IMIPENEM KIAN (VITEK) Sensitive Escherichia coli LEVOFLOXACIN KIAN (VITEK) Sensitive Escherichia coli MEROPENEM KIAN (VITEK) Sensitive Escherichia coli PIPERACILLIN/TAZOBACTAM KIAN (VITEK) Sensitive Escherichia coli TRIMETH-SULFAMETH. KIAN (VITEK) Resistant Escherichia coli TETRACYCLINE KIAN (VITEK) Resistant us Carmen Cardozo NP MICROBIOLOGY - GENERAL ORDERA BLES Final Result [facility] [address] [place] [id number], [id number] * (ABNORMAL) URINALYSIS (05/14/2025 2:30 PM HOURLY SHIFT) COLOR (U) LIGHT YELLOW 05/14/2025 2:53 PM HOURLY SHIFT [facility] TRANSPARENCY CLEAR 05/14/2025 2:53 PM HOURLY SHIFT [facility] SPECIFIC GRAVITY (U) 1.028 1.002 - 1.035 05/14/2025 2:53 PM HOURLY SHIFT [facility] U PH 7.5 5 - 8 05/14/2025 2:53 PM HOURLY SHIFT [facility] PROTEIN RANDOM (U) NEGATIVE NEGATIVE 05/14/2025 2:53 PM HOURLY SHIFT [facility] GLUCOSE (U) NEGATIVE NEGATIVE MG/DL 05/14/2025 2:53 PM HOURLY SHIFT [facility] KETONES MG/DL (U) NEGATIVE NEGATIVE 05/14/2025 2:53 PM HOURLY SHIFT [facility] BILIRUBIN (U) NEGATIVE NEGATIVE 05/14/2025 2:53 PM HOURLY SHIFT [facility] BLOOD (U) NEGATIVE NEGATIVE 05/14/2025 2:53 PM HOURLY SHIFT [facility] NITRITES POSITIVE(A) NEGATIVE 05/14/2025 2:53 PM HOURLY SHIFT [facility] UROBILINOGEN 2.0(H) 0 - 1 EU/DL 05/14/2025 2:53 PM HOURLY SHIFT [facility] LEUKOCYTES (U) 2+(A) NEGATIVE 05/14/2025 2:53 PM HOURLY SHIFT [facility] RBC/HPF 1 0 - 3 /HPF 05/14/2025 2:53 PM HOURLY SHIFT [facility] WBC/HPF 17(H) 0 - 6 /HPF 05/14/2025 2:53 PM HOURLY SHIFT [facility] BACTERIA (U) PRESENT /HPF 05/14/2025 2:53 PM HOURLY SHIFT [facility] SQUAMOUS EPITHELIALS 1 05/14/2025 2:53 PM HOURLY SHIFT [facility] URINE URINE SPECIMEN OBTAINED BY CLEAN CATCH PROCEDURE / Unknown 05/14/2025 2:30 PM HOURLY SHIFT us Carmen Cardozo NP URINE ORDERABLES Final Result [facility] [address] [place] [address], [id number] * (ABNORMAL) URINE DRUG SCREEN (TOXICOLOGY) (05/14/2025 2:30 PM HOURLY SHIFT) PHENCYCLIDINE PCP (U) NEGATIVE NEGATIVE 05/14/2025 3:05 PM HOURLY SHIFT [facility] BENZODIAZEPINES SCREEN (U) NEGATIVE NEGATIVE 05/14/2025 3:05 PM HOURLY SHIFT [facility] COCAINE METABOLITES (U) NEGATIVE NEGATIVE 05/14/2025 3:05 PM HOURLY SHIFT [facility] AMPHETAMINE (U) POSITIVE SCREEN RESULT, IF CONFIRMATION DESIRED PLEASE CONTACT LAB WITHIN ONE WEEK. (A) NEGATIVE 05/14/2025 3:05 PM HOURLY SHIFT [facility] CANNABINOIDS SCREEN (U) NEGATIVE NEGATIVE 05/14/2025 3:05 PM HOURLY SHIFT [facility] OPIATE SCREEN (U) NEGATIVE NEGATIVE 025 3:05 PM HOURLY SHIFT [facility] BARBITURATES SCREEN (U) NEGATIVE NEGATIVE 05/14/2025 3:05 PM [facility] URINE TOX COMMENT Unconfirmed screening results are to be used only for medical purposes. 05/14/2025 2:13 PM HOURLY SHIFT [facility] CUTOFF CONCENTRATION (U) Cut-off Concentration for a positive result 05/14/2025 2:13 PM [facility] Comment: Phencyclidine 25 ng/mL Benzodiazepines 200 ng/mL Cocaine 300 ng/mL Amphetamine 1000 ng/mL Cannabinoids 50 ng/mL Opiates 300 ng/mL Barbiturates 200 ng/mL URINE URINE SPECIMEN OBTAINED BY CLEAN CATCH PROCEDURE / Unknown 05/14/2025 2:30 PM HOURLY SHIFT us Carmen Cardozo NP URINE ORDERABLES Final Result [facility] [address] [place] [address], [id number] * PROTIME/INR, VENOUS (PROTHROMBIN TIME) (05/14/2025 1:08 PM HOURLY SHIFT) PROTIME 11.8 9.4 - 12.5 SEC 05/14/2025 1:46 PM HOURLY SHIFT [facility] INR 1.0 0.8 - 1.1 05/14/2025 1:46 PM HOURLY SHIFT [facility] BLOOD VENOUS BLOOD SPECIMEN / Unknown 05/14/2025 1:08 PM HOURLY SHIFT us Carmen Cardozo NP LABORATORY Final Result Performing Organization Address [facility] Co de Phone Number [facility] [address] [place] [address], [phone] * HEMOGLOBIN, GLYCATED (05/14/2025 1:08 PM HOURLY SHIFT) HGB A1C 5.6 <5.7 % 05/14/2025 1:39 PM HOURLY SHIFT [facility] ESTIMATED AVG GLUCOSE 114 74 - 114 MG/DL 05/14/2025 1:39 PM HOURLY SHIFT [facility] BLOOD VENOUS BLOOD SPECIMEN / Unknown 05/14/2025 1:08 PM HOURLY SHIFT us Carmen Cardozo NP LABORATORY Final Result Performing Organization Address [facility] de Phone Number [facility] [address] [place] [address], [phone] * CK (CPK) (05/14/2025 1:08 PM HOURLY SHIFT) CPK 125 26 - 192 U/L 05/14/2025 5:20 PM HOURLY SHIFT [facility] BLOOD VENOUS BLOOD SPECIMEN / Unknown 05/14/2025 1:08 PM HOURLY SHIFT us Carmen Cardozo NP LABORATORY Final Result Performing Organization Address [facility] Co de Phone Number [facility] [address] [place] [address], [phone] * ECG 12 lead (05/14/2025 12:25 PM HOURLY SHIFT) ECG QT 348 [facility] ECG QTC 462 [facility] 05/14/2025 12:2 5 PM HOURLY SHIFT Narrative [facility] - 05/15/2025 7:24 AM HOURLY SHIFT [facility] [address] [place] [address] Test Date: 2025-05-14 Pat Name: LOUIS PINTO Department: 1 Room: 81A Gender: Female Mentally 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 Teacher: Pavel : 1970 Requested By: CARMEN CARDOZO Order Number: [id number] Reading MD: Ruthann Kunz Measurements Intervals [place] Rate: 105 P: 74 MS: 144 QRS: 72 QRSD: 90 T: 56 QT: 348 QTc: 462 Interpretive Statements SINUS TACHYCARDIA ABNORMAL RHYTHM ECG LY SHIFT Procedure Note Ruthann Kunz MD - 05/15/2025 [place] [address] [place] [address] Test Date: 2025-05-14 Pat Name: LOUIS PINTO Department: 1 Room: 81A Gender: Female Mentally 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 * CTA HEAD+NECK (05/14/2025 10:31 AM HOURLY SHIFT) Anatomical Region Laterality Modality Head, Neck Computed Tomogra phy 05/14/2025 10:5 9 AM HOURLY SHIFT Impressions 05/14/2025 11:05 AM HOURLY SHIFT IMPRESSION: 1. Abrupt cut off of the proximal to midportion of the M1 segment of the left middle cerebral artery. Partial opacification of some branches of the left middle cerebral artery M2 segment that may relate to subocclusive thrombosis and/or collateral flow. Suggestion of 55% or greater reduction in blood vessel density of the left middle cerebral artery territory. 2. 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 3. Otherwise patent intracranial arterial vasculature. 4. No significant stenosis involving the proximal internal carotid arteries. Patent carotid and vertebral arteries throughout their course. 5. Mild pulmonary emphysema. A Critical message has been sent initially to WILLIS Mckenzie the [employer] system on 05/14/2025 11:04 AM, Message ID [id number]. Receipt of this communication by the appropriate provider/service will be electronically recorded and documented by [employer] upon receiving acknowledgement. Ordered By: WILLIS ORTEGA Interpreted By: Julio Solis MD, 05/14/2025 10:59 AM Narrative 05/14/2025 11:05 AM HOURLY SHIFT [address] [address] Examination: CTA HEAD+NECK, 05/14/2025 10:23 AM. Technique: Computed tomographic images of the head and neck were obtained after the administration of 78 mL of Isovue-370 injected through the IV, without evidence of an adverse reaction. Additional coronal and sagittal reformatted as well as maximum intensity projection images were generated at a separate workstation. Carotid stenoses were measured according to NASCET criteria. Rapid postprocessing software was utilized for blood vessel density measurement. A dose lowering technique was used for this procedure, which may include, but is not limited to, dose reduction technique, automated exposure control, the use of iterative reconstruction, and ALARA (As Low As Reasonably Achievable) / Image Gently techniques. Clinical history: Right facial droop, aphasia Comparison: MRI brain 09/29/2021. Findings: CTA HEAD: Suggestion of 55% or greater reduction in blood vessel density of the left middle cerebral artery territory. Abrupt cut off of the proximal to midportion of the M1 segment left middle cerebral artery (best seen on series 5 image 105, series 10 image 35, series 11 image 26). Partial opacification of some branches of the left middle cerebral artery M2 segment that may relate to subocclusive thrombosis and/or collateral flow. Right middle cerebral artery branches appear patent proximally. Anterior cerebral arteries are patent. Petrous and cavernous portions of the internal carotid arteries are patent. The basilar artery is patent. Posterior cerebral arteries are patent. origin of the left posterior cerebral artery. No extra-axial collection. The ventricles are normal in size. The basal cisterns appear normal. Orbital contents appear normal. Paranasal sinuses and mastoid air cells are well aerated. CTA NECK: Conventional 3 vessel origin arising from the aortic arch. Mild focal stenosis involving the proximal left subclavian artery. No significant stenosis involving the proximal internal carotid arteries. 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 The vertebral arteries are patent throughout their course allowing for beam hardening and streak artifact related to anterior cervical fusion hardware of C3-6. Mild pulmonary emphysema. Thyroid appears normal. No cervical chain adenopathy. Parotid and submandibular glands appear normal. Procedure Note Julio Solis MD - 05/14/[address] [address] Examination: CTA HEAD+NECK, 05/14/2025 10:23 AM. Technique: Computed tomographic images of the head and neck were obtainedafter the administration of 78 mL of Isovue-370 injected through the IV,without evidence of an adverse reaction. Additional coronal and sagittalreformatted as well as maximum intensity projection images were generatedat a separate workstation. Carotid stenoses were measured according toNASCET criteria. Rapid postprocessing software was utilized for bloodvessel density measurement. A dose lowering technique was used for thisprocedure, which may include, but is not limited to, dose reductiontechnique, automated exposure control, the use of iterativereconstruction, and ALARA (As Low As Reasonably Achievable) / Image Gentlytechniques. Clinical history: Right facial droop, aphasia Comparison: MRI brain 09/29/2021. Findings: CTA HEAD: Suggestion of 55% or greater reduction in blood vessel densityof the left middle cerebral artery territory. Abrupt cut off of theproximal to midportion of the M1 segment left middle cerebral artery (bestseen on series 5 image 105, series 10 image 35, series 11 image 26).Partial opacification of some branches of the left middle cerebral arteryM2 segment that may relate to subocclusive thrombosis and/or collateralflow. Right middle cerebral artery branches appear patent proximally.Anterior cerebral arteries are patent. Petrous and cavernous portions ofthe internal carotid arteries are patent. The basilar artery is patent.Posterior cerebral arteries are patent. origin of the left posteriorcerebral artery. No extra-axial collection. The ventricles are normal in size. The basalcisterns appear normal. Orbital contents appear normal. Paranasal sinusesand mastoid air cells are well aerated. CTA NECK: Conventional 3 vessel origin arising from the aortic arch. Mildfocal stenosis involving the proximal left subclavian artery. Nosignificant stenosis involving the proximal internal carotid arteries.Probable pseudoaneurysm/atheromatous ulcer involving the posterior wall ofthe proximal right internal carotid artery measuring approximately 0.6 x0.4 cm (best seen on series 5 image 229). The vertebral arteries arepatent throughout their course allowing for beam hardening and streakartifact related to anterior cervical fusion hardware of C3-6. Mild pulmonary emphysema. Thyroid appears normal. No cervical chainadenopathy. Parotid and submandibular glands appear normal. IMPRESSION: 1. Abrupt cut off of the proximal to midportion of the M1 segment of theleft middle cerebral artery. Partial opacification of some branches of theleft middle cerebral artery M2 segment that may relate to subocclusivethrombosis and/or collateral flow. Suggestion of 55% or greater reductionin blood vessel density of the left middle cerebral artery territory. 2. 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 3. Otherwise patent intracranial arterial vasculature. 4. No significant stenosis involving the proximal internal carotidarteries. Patent carotid and vertebral arteries throughout their course. 5. Mild pulmonary emphysema. A Critical message has been sent initially to WILLIS Mckenzie the [employer] system on 05/14/2025 11:04 AM, Message [id number]. Receipt of this communication by the appropriateprovider/service will be electronically recorded and documented by [employer] upon receiving acknowledgement. Ordered By: WILLIS ORTEGA Interpreted By: Julio Solis MD, 05/14/2025 10:59 AM Willis Ortega MD CT Final Result * HPV MRNA E6/E7 (05/31/2017 5:04 PM HOURLY SHIFT) HPV MRNA E6/E7 Not Detected NOT DETECTED 06/08/2017 7:13 PM HOURLY SHIFT [facility] JOJOARINA ABBASI Comment: This test was performed using the APTIMA(R) HPV Assay([employer]This assay detects E6/E7 viral messenger RNA (mRNA)from 14 high-risk HPV types (16,18,31,33,35,39,45,51,52,56,58,59,66,68).For additional information please refer to:http://education.Autoniq/faq/EYV017g4(This link is being provided for informational/educational purposes only.)Test Performed by [facility] [place],[facility],[address] [place] [id number] Rivera M.D., Ph.D., Director of [phone], [phone] [id number] FLUID SPECIMEN / Unknown 05/31/2017 5:04 PM HOURLY SHIFT 05/31/2017 5:04 PM HOURLY SHIFT us Babar Hahn Md, MD PATHOLOGY/CYTOLOGY MARYBEL CAPPS Final Result [facility] [address] , from Last 3 Months or Most Recently Relevant to Health Maintenance Insurance MEDICARE MEDICAID [facility] MEDICARE [facility] Advance Directives Documents on File Type Date Recorded 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
--- OUTSIDE RECORDS SUMMARY | 2025-05-28 14:18 | XMS_ITS | Patient Health Record ---
Author Organization [facility] Address [address] [place] [address] Phone [phone] Care Team Providers Care Tractor Mechanic Apprentice Name Role Phone Jarrell DIAZ Tiki Primary Care Provider [phone] Allergies Allergen (clinical drug ingredient) Drug/Non Drug Allergy documented on EMR Reaction Allergy Type Onset Date Status gabapentin Gabapentin Unknown Drug Allergy Activ e penicillamine Penicillamine Unknown Drug Allergy Active Reason For Referral No Information Medications Medication SIG (Take, Route, Frequency, Duration) Notes Start Date End Date Diagnosis (ICD Code) Status Colace 100 MG Capsule 1 capsule Orally twice a day Active traZODone HCl 50 MG Tablet 1 tablet at bedtime as needed Orally Once a day; Duration: 30 day(s) Active Vitamin D 1000 UNIT Tablet 1 tablet Orally Once a day; Duration: 30 day(s) Active Venlafaxine HCl ER 150 MG Capsule Extended Release 24 Hour 1 capsule with food Orally Once a day; Duration: 30 day(s) Active Famotidine 20 MG Tablet 1 tablet Orally Twice a day Active Naproxen 500 MG Tablet 1 tablet with food or milk as needed Orally Twice a day Active tiZANidine HCl 4 MG Tablet 1 tablet as needed Orally Three times a day; Duration: 10 days 06/08/2020 Strain of left shoulder, initial encounter (ICD_10 - S46.912A) Active hydrOXYzine HCl 25 MG Tablet 2 capsules Orally every 4 hours as needed Active tylenol 2 tablets oral as needed Not-Taking amLODIPine Besylate 5 MG Tablet 1 tablet Orally Once a day; Duration: 30 day(s) Active Acetaminophen 500 MG Tablet 2 tablets Orally every 6 hrs Active Multivitamin Adult - Tablet as directed Orally Active HYDROcodone-Acetami nophen 7.5-325 MG Tablet 1 tablet as needed Orally every 6 hrs Active Atorvastatin Calcium 10 MG Tablet 1 tablet Orally Once a day; Duration: 30 day(s) Active Social History Tobacco Use: Social History Observation Description Date Details (start date - stop date) Current Smoker NA - NA Sex Observation Social History Observation Description Sex Observation Female Social History Miscellaneous Social Info Question Answer Notes Method of learning: Preferred method of learning: Disc ussion Primary Social History Social Info Question Answer Notes Living Arrangement Living Arrangement: Dependent Dustin guajardo Living with: Child Is this a supportive environment? Yes Employment Status Employment Status: On Disability Illicit Substance Usage Illicit Substance Usage: No Clean for 7 months as of 06/08/2020 Alcohol Use Alcohol Use Frequency: Never Drugs/Alcohol: Social Info Question Answer Notes Alcohol Screen (Audit-C) Did you have a drink containing alcohol in the past year? No Points 0 Interpretation Negative Drugs Have you used drugs other than those for medical reasons in the past 12 months? No Tobacco Use: Social Info Question Answer Notes Dont use, Tobacco Use/Smoking Are you a current smo ker How often do you smoke cigarettes? every day How many cigarettes a day do you smoke? 11-20 How soon after you wake up do you smoke your first cigarette? 6-30 minutes Are you interested in quitting? Not ready to quit Additional Details Category Social Info Options Details Past Medication Use Do you use nicotine other than cig arettes? no Drugs/Alcohol: Do you smoke marijuana? De nies Do you drink alcohol? No Problems Problem Type SNOMED Code ICD Code Dates Problem Status W/U Status Risk Notes Problem Cerebral infarction due to thrombosis of cerebral arteries ([id number]) Cerebrovascular accident (CVA) due to thrombosis of left middle cerebral artery (I63.312) Added On:2019 Active confirmed Plan Of Treatment No Information Insurance Providers Payer Name Payer Address Payer Phone Subscriber Number Group Number Insured Name Patient Relationship to Insured Coverage Start Date Coverage End Date [facility] [address] [place] [phone] [id number] Blair Misty Self - patient is the insured 0 Medical (General) History Medical History History ICD Code Essential hypertension I10 Mixed hyperlipidemia E78.2 Moderate episode of recurrent major depr essive disorder F33.1 Cerebrovascular accident (CV A) due to thrombosis of left middle cerebral artery I63.312 Surgical History Surgery Date(Month/Year) 4 c-sections TOTAL HYSTERECTOMY Spinal Surgery Hospitalization History Reason Date(Month/Year) C-Sections and hysterectomy Spine surgery
--- NOTE | 2025-05-28 14:20 | WPCEDHO ---
ED Hand Off Checklist All vitals saved:y IV Site documented:y All med administrations documented:y Triage Note Triage Note Pt to the ED via EMS for 05/28/25 12:09 evaluation of confusion and increased weakness. Pt has hx of CVA with bilateral extremity weakness. Pt states her speech has been slurred for 5 days. Pt is experiencing aphasia as well. Allergies gabapentin Allergy (Intermediate, Verified 05/24/25 17:20) SEIZURES Penicillins Allergy (Mild, Verified 05/24/25 17:20) Unknown Iodine and Iodide Containing Produc Allergy (Verified 05/24/25 17:20) Difficulty Breathing Interventions/Assessments IV / Saline Lock, Insert Start: 05/28/25 11:39 Freq: STAT Status: Active Protocol: Document 05/28/25 11:56 ELB (Rec: 05/28/25 11:57 ELB [id number]) IV Assessment Peripheral Access Right Wrist IV Catheter Access Initiated Before Arrival Catheter Gauge 18 IV Site Assessment WNL IV Care and WNL Maintenance Peripheral Access Left Arm, Upper IV Catheter Access Initiated Before Arrival Catheter Gauge 20 Ultrasound Used for No Placement IV Site Assessment WNL IV Care and WNL Maintenance Last Vital Signs Temperature 97.5 F L 05/28/25 12:09 Pulse Rate 61 05/28/25 14:04 Respiratory Rate 14 05/28/25 14:04 Pulse Oximetry 99 05/28/25 14:04 Blood Pressure 102/78 05/28/25 14:04 Blood Pressure Mean 85 05/28/25 14:04 Blood Pressure Position Supine 05/28/25 12:09 Oxygen Delivery Room Air 05/28/25 12:09 Last Result - Abnormals Only MPV 11.8 fl (7.4-10.4) H 05/28/25 12:11 Sodium 136 mmol/L (137-145) L 05/28/25 12:11 BUN 25 mg/dL (7-17) H D 05/28/25 12:11 Total Protein 6.2 g/dL (6.3-8.2) L 05/28/25 12:11 Urine Appearance Cloudy (Clear) H 05/28/25 12:44 Urine Nitrate Positive (Negative) H 05/28/25 12:44 Leukocyte Esterase Rfl 3+ ROGER/UL (Negative) H 05/28/25 12:44 Urine WBC 51-100 /hpf (0-3) H 05/28/25 12:44 Urine Bacteria 4+ /hpf H 05/28/25 12:44 Most Recent Suicide Severity Rating Suicide Severity Rating NO RISK INDICATED 05/28/25 12:09
--- OUTSIDE RECORDS SUMMARY | 2025-05-28 14:20 | XMS_ITS | Encounter Summary ---
Author Organization [facility] Address [address] [place] [address] Phone Care Team Providers Care Relocation Manager Name Role Phone Shad Lechuga MD Primary Care Provider [phone] Win Yusuf MD PhD Unavailable [phone] Dania Rojo CANDY SEPARATOR ENROBING Unavailable Unavailab le Reason for Visit * Reason Comments Medication Refill Encounter Details Date Type Department Care Team (Late st Contact Info) Description 03/26/2021 Refill [facility] [address] [place] [id number] Shad Lechuga MD [address] [address] Medication Refill Social History Tobacco Use Types [...] CDT Gender Identity Female 04/28/2023 11:45 PM MEDICAL DATA ANALYST Sexual Orientation Straight 04/28/2023 11 :45 PM MEDICAL DATA ANALYST COVID-19 Exposure Response Date Recorded In the [...] 1 month ago Left sided abdominal pain [facility] - Family [facility] - Austyn Crockett APN, CNP 4 months ago Schizophrenia, unspecified type (HCC) [facility] Austyn Crockett APN, CNP 5 months ago SOB (shortness of breath) [facility] - Shad Lopez MD 7 months ago [facility], DMITRIY 7 months ago [facility], unspecified [facility] Austyn Crockett APN, DMITRIY Upcoming Appointments Future Appointments In 2 weeks [id number] Mamm[facility], [facility] In 1 month Austyn Park APN, CNP [facility] DORIS Ghotra CLINICAL DOCUMENTATION SPECIALIST - Recent and Past Visits Recent Visits Date Type Provider Dept 02/17/21 Office Visit Austyn Park APN, CNP [facility] 11/13/20 Office Visit Austyn Park APN, CNP [facility] 10/13/20 Telemedicine Shad Lechuga MD [facility] [place] 08/13/20 Office Visit Austyn Park APN, DMITRIY [facility] [place] 08/04/20 Office Visit Austyn Park APN, DMITRIY [facility] [place] 03/19/20 Office Visit Austyn Park APN, DMITRIY [facility] [place] Showing recent visits [...] Depression Total Score: 1 08/13/19 3:14 PM MEDICAL DATA ANALYST documented as of this encounter Care Teams Relocation Manager Relationship Specialty Start Date End Date Shad Lechuga MD [address] [address] PCP - General Family Medicine 07/20/18 Win Yusuf MD PhD [address] [place] [address] Neurosurgeon Neurological Surgery 05/13/19 Dania Rojo LSW NH Supply Specialist Sand Mixer 02/24/25 documented as of this encounter
--- OUTSIDE RECORDS SUMMARY | 2025-05-28 14:20 | XMS_ITS | Encounter Summary ---
Author Organization [facility] Address [address] [place] [address] Phone Care Team Providers Care Adobe Block Maker Name Role Phone Shad Lechuga MD Primary Care Provider [phone] Win Yusuf MD PhD Unavailable Dania Rojo CARBURIZER Unavailable Unavailab le Reason for Visit * Reason Onset Date Comments Medication Refill Medication Refill 01/18/2021 Encounter Details Date Type Department Care Team (Late st Contact Info) Description 12/24/2020 Refill [facility] [address] [place] [address] Shad Lechuga MD #[address] [address] Medication Refill; Medication Refill Social History Tobacco [...] CDT Gender Identity Female 04/28/2023 11:45 PM HEATING UNIT INSTALLER Sexual Orientation Straight 04/28/2023 11 :45 PM HEATING UNIT INSTALLER documented as of this encounter Miscellaneous Notes * Telephone Encounter - Bela Ceja RN - 12/25/2020 10:34 AM CDT [place] 11/14/20 [place], 11/19/20 diazepam Medication failed the protocol, provider [...] month ago Schizophrenia, unspecified type (HCC) [facility] - Family Medicine - Austyn Crockett APN, DMITRIY 2 months ago SOB (shortness of breath) [facility] - Shad Lopez MD 4 months ago Urinary retention [facility] - Family Medicine - Austyn Crockett APN, CNP 4 months ago Chest pain, unspecified type [facility] Medical [facility] - Family Medicine - Austyn Crockett APN, CNP 9 months ago Chronic pain syndrome [facility] Medical [facility] Family Medicine - Austyn Crockett APN, DMITRIY Upcoming Appointments Future Appointments In 1 week [facility]NMHOT[facility], [facility] In 1 week SAHCNM2 [facility], [facility] In 1 week SAHCSTRESSLAB1 [facility] Stress, [facility] In 1 week [facility]HCNM2 [facility], [facility] In 1 week SAHCMAM1 [facility] Mammography, [facility] In 1 month Austyn Park APN, DMITRIY [facility] [place] MANAGER CLIENT SERVICE - Recent and Past Visits Recent Visits Date Type Provider Dept 11/13/20 Office Visit Austyn Park APN, DMITRIY [facility] 10/13/20 Telemedicine [facility]20 Office Visit Austyn Park APN, DMITRIY [facility] 08/04/20 Office Visit Austyn Park APN, DMITRIY [facility] [place] 03/19/20 Office Visit Austyn Park APN, DMITRIY [facility] 12/11/19 Office Visit Austyn Park APN, DMITRIY [facility] Showing recent visits within past 460 days with a meds authorizing provider and meeting all other requirements Future Appointments Date Type Provider Dept 02/16/21 Appointment Austyn Park APN, CNP [facility] [place] Showing future appointments within next 90 days [...] Total Score: 1 08/13/19 21 3:14 PM HEATING UNIT INSTALLER documented as of this encounter Care Teams Adobe Block Maker Relationship Specialty Start Date End Date Shad Lechuga MD #[address] [address] PCP - General Family Medicine 07/20/18 Win Yusuf MD PhD [address] [place] [address] Neurosurgeon Neurological Surgery 05/13/19 Dania Rojo LSW [place] Profile Shaper Operator Paint Maker 02/24/25 documented as of this encounter
--- OUTSIDE RECORDS SUMMARY | 2025-05-28 14:20 | XMS_ITS | Encounter Summary ---
Author Organization [facility] Address [address] [place] [address] Phone Care Team Providers Care Traffic Investigator Name Role Phone Shad Lechuga MD Primary Care Provider [phone] Win Yusuf MD PhD Unavailable [phone] Dania Rojo [facility] Unavailable Unavailab le Reason for Visit * Reason Comments Medication Refill Encounter Details Date Type Department Care Team (Late st Contact Info) Description 03/02/2021 Refill [facility] [address] [place] [id number] Shad Lechuga MD #[address] [address] Medication Refill Social History Tobacco Use Types [...] CDT Gender Identity Female 04/28/2023 11:45 PM ER PHYSICIAN Sexual Orientation Straight 04/28/2023 11 :45 PM ER PHYSICIAN COVID-19 Exposure Response Date Recorded In the [...] Depression Total Score: 1 08/13/19 3:14 PM ER PHYSICIAN documented as of this encounter Care Teams Traffic Investigator Relationship Specialty Start Date End Date Shad Lechuga MD #[address] [address] PCP - General Family Medicine 07/20/18 Win Yusuf MD PhD [address] [place] [address] Neurosurgeon Neurological Surgery 05/13/19 Dania Rojo LSW [place] Kier Drier Assistant Site Manager 02/24/25 documented as of this encounter
--- OUTSIDE RECORDS SUMMARY | 2025-05-28 14:20 | XMS_ITS | Encounter Summary ---
Author Organization [facility] Address [address] [place] [address] Phone Care Team Providers Care Launchman Name Role Phone Shad Lechuga MD Primary Care Provider [phone] Win Yusuf MD PhD Unavailable [phone] Dania Rojo BELL CLERK Unavailable Unavailab le Reason for Visit * Reason Comments Medication Refill Encounter Details Date Type Department Care Team (Late st Contact Info) Description 02/05/2021 Refill [facility] [address] [place] [id number] Shad Lechuga MD #[address] [address] Medication Refill Social History Tobacco Use Types [...] CDT Gender Identity Female 04/28/2023 11:45 PM SCRAP BALER Sexual Orientation Straight 04/28/2023 11 :45 PM SCRAP BALER COVID-19 Exposure Response Date Recorded In the [...] 2 months ago Schizophrenia, unspecified type (HCC) [facility] - Austyn Crockett APN, ASSISTANT PROFESSOR OF EDUCATION 3 months ago SOB (shortness of breath) [facility] - Shad Lopez MD 5 months ago Urinary retention [facility] - Austyn Crockett APN, ASSISTANT PROFESSOR OF EDUCATION 6 months ago Chest pain, unspecified type [facility] - Austyn Crockett APN, ASSISTANT PROFESSOR OF EDUCATION 10 months ago Chronic pain syndrome [facility] - Austyn Crockett APN, ASSISTANT PROFESSOR OF EDUCATION Upcoming Appointments Future Appointments In 1 week Austyn Park APN, ASSISTANT PROFESSOR OF EDUCATION [facility] BARREL CHARRER HELPER - Recent and Past Visits Recent Visits Date Type Provider Dept 11/13/20 Office Visit Austyn Park APN, CNP [facility] 10/13/20 Telemedicine Shad Lechuga MD [facility] 08/13/20 Office Visit Austyn [place] APN, CNP [facility] 08/04/20 Office Visit Austyn Park APN, DMITRIY [facility] 03/19/20 Office Visit Austyn Park APN, DMITRIY [facility] 12/11/19 Office Visit Austyn Park APN, DMITRIY [facility] Showing recent visits within past 460 days with a meds authorizing provider and meeting all other requirements Future Appointments Date Type Provider Dept 02/17/21 Appointment Austyn Park APN, DMITRIY [facility] Showing future appointments within next 90 days with a meds authorizing provider and meeting all other requirements documented in this encounter Plan of Treatment Not on file documented as of this encounter Visit Diagnoses Diagnosis Chronic pain syndrome documented in this encounter Additional Health Concerns Infection Onset Date Last Indicated Resolved Time COVID - 19 09/02/2024 09/02/2024 09/02/2024 9:2 7 PM CDT Assessment Noted Time PHQ-9 Depression Total Score: 1 08/13/19 3:14 PM SCRAP BALER documented as of this encounter Care Teams Launchman Relationship Specialty Start Date End Date Shad Lechuga MD #[address] [address] PCP - General Family Medicine 07/20/18 Win Yusuf MD PhD [address] [place] [address] Neurosurgeon Neurological Surgery 05/13/19 Dania Rojo LSW [place] Information Operator Channel Installer 02/24/25 documented as of this encounter
--- OUTSIDE RECORDS SUMMARY | 2025-05-28 14:21 | XMS_ITS | Encounter Summary ---
Author Organization [facility] Address [address] [place] [address] Phone Care Team Providers Care Pump Servicer Supervisor Name Role Phone Shad Lechuga MD Primary Care Provider [phone] Win Yusuf MD PhD Unavailable [phone] Dania Rojo CHIEF YEOMAN Unavailable Unavailab le Reason for Visit * Reason Comments Medication Refill Encounter Details Date Type Department Care Team (Late st Contact Info) Description 07/08/2021 Refill [facility] [address] [place] [address] Shad Lechuga MD #[address] [address] Medication Refill Social History Tobacco Use Types [...] CDT Gender Identity Female 04/28/2023 11:45 PM RESOURCE ANALYST Sexual Orientation Straight 04/28/2023 11 :45 PM RESOURCE ANALYST documented as of this encounter Miscellaneous Notes [...] Office Visit Austyn Park APRN, DMITRIY [facility] Showing recent visits within past 365 days and meeting all other requirements Future Appointments Date Type Provider Dept 07/13/21 Appointment Shad Lechuga MD [facility] Showing future appointments within next 90 days and meeting all other requirements URCE ANALYST documented in this encounter Plan of Treatment Not on file documented as of this encounter Visit Diagnoses Not on filedocumented in this encounter Additional Health Concerns Infection Onset Date Last Indicated Resolved Time COVID - 19 09/02/2024 09/02/2024 09/02/2024 9:27 PM CDT Assessment Noted Time PHQ-9 Depression Total Score: 1 08/13/19 3:14 PM RESOURCE ANALYST documented as of this encounter Care Teams Pump Servicer Supervisor Relationship Specialty Start Date End Date Shad Lechuga MD #[address] [address] PCP - General Family Medicine 07/20/18 Win Yusuf MD PhD [address] [place] [address] Neurosurgeon Neurological Surgery 05/13/19 Dania Rojo LSW [place] Automatic Profile Shaper Operator Mapping Supervisor 02/24/25 documented as of this encounter
--- OUTSIDE RECORDS SUMMARY | 2025-05-28 14:22 | XMS_ITS | Encounter Summary ---
Author Organization [facility] Address [address] [place] [address] Phone Care Team Providers Care Lagging Machine Operator Name Role Phone Shad Lechuga MD Primary Care Provider [phone] Win Yusuf MD PhD Unavailable [phone] Dania Rojo HEADER SETUP OPERATOR Unavailable Unavailab le Reason for Visit * Reason Comments Medication Refill Encounter Details Date Type Department Care Team (Late st Contact Info) Description 05/20/2022 Refill [facility] [address] [place] [id number] Austyn Park, TIRE ASSEMBLER, BAREBACK RIDER #[address] [address] Medication Refill Social History Tobacco Use Types [...] CDT Gender Identity Female 04/28/2023 11:45 PM RECEIVABLE EXECUTIVE Sexual Orientation Straight 04/28/2023 11 :45 PM RECEIVABLE EXECUTIVE COVID-19 Exposure Response Date Recorded In the last 10 days, have yo u been in contact with someone who was confirmed or suspected to have Coronavirus/COVID-19? No / Unsure 04/26/2022 1:20 PM RECEIVABLE EXECUTIVE documented as of this encounter Miscellaneous Notes * Telephone Encounter - Bela Ceja RN - 05/20/2022 10:02 AM CST Duplicate - see previous request for denial/refusal IVABLE EXECUTIVE documented in this encounter Plan of Treatment Not on file documented as of this encounter Visit Diagnoses Not on filedocumented in this encounter Additional Health Concerns Infection Onset Date Last Indicated Resolved Time COVID - 19 09/02/2024 09/02/2024 09/02/2024 9:27 PM CDT Assessment Noted Time PHQ-9 Depression Total Score: 1 08/13/19 21 3:14 PM RECEIVABLE EXECUTIVE documented as of this encounter Care Teams Lagging Machine Operator Relationship Specialty Start Date End Date Shad Lechuga MD #[address] [address] PCP - General Family Medicine 07/20/18 Win Yusuf MD PhD [address] [place] [address] Neurosurgeon Neurological Surgery 05/13/19 Dania Rojo LSW [place] Drafter Engineering Solution Maker 02/24/25 documented as of this encounter
--- OUTSIDE RECORDS SUMMARY | 2025-05-28 14:22 | XMS_ITS | Encounter Summary ---
Author Organization [facility] Address [address] [place] [address] Phone Care Team Providers Care Horseback Excavator Name Role Phone Shad Lechuga MD Primary Care Provider [phone] Win Yusuf MD PhD Unavailable [phone] Dania Rojo DRAMATIC ART TEACHER Unavailable Unavailab le Reason for Referral * Consult, Test & Initiate Treatment (Less Than 1 Week) - Closed Specialty Diagnoses / Procedures Referred By Shad newton Referred To Contact Diagnoses Chronic pain syndrome Shad Lechuga MD #2 [facility] [address] [place] [address] Phone: tel: fax: Referral ID Status Reason Start Date Expiration Date Visits Re quested Visits Authorized [id number] Closed 05/18/2021 1 1 Scheduling Instructions Misty is being referred to [facility], [facility], [facility], [facility] or other specialist in patient's [...] Chronic joint pain SOB (shortness of breath) WORK CIGAR MACHINE OPERATOR Reason for Visit * Reason Comments Medication Refill Encounter Details Date Type Department Care Team (Late st Contact Info) Description 05/18/2021 Refill [facility] [place] #[address] [place] [address] Shad Lechuga MD #[address] [address] Medication Refill Social History Tobacco Use Types [...] CDT Gender Identity Female 04/28/2023 11:45 PM SOFT WORK CIGAR MACHINE OPERATOR Sexual Orientation Straight 04/28/2023 11 :45 PM SOFT WORK CIGAR MACHINE OPERATOR COVID-19 Exposure Response Date Recorded In the last month, have you been in contact with someone who was confirmed or suspected to have Coronavirus / COVID-19? No / Unsure 05/13/2021 11:46 AM SOFT WORK CIGAR MACHINE OPERATOR documented as of this encounter Miscellaneous Notes * Telephone Encounter - Shad Lechuga MD - 05/18/2021 1:44 PM SOFT WORK CIGAR MACHINE OPERATOR Pended order signed. If she is having withdrawal symptoms, tell her to go to the ER. Thanks! WORK CIGAR MACHINE OPERATOR * Telephone Encounter - Bela Ceja RN [...] - please complete and sign as appropriate. WORK CIGAR MACHINE OPERATOR * Telephone Encounter - Shad Lechuga MD - 05/18/2021 11:31 AM SOFT WORK CIGAR MACHINE OPERATOR Let her know that my office will no longer be prescribing her controlled substances. If she needs pain medication, I can refer her to pain management. If she has any withdrawal symptoms, tell her to go to the ER. Thanks! WORK CIGAR MACHINE OPERATOR * Telephone Encounter - Bela Ceja RN [...] Visits 1 week ago Amphetamine abuse (HCC) [facility] - Family [facility] - Austyn Crockett APRN, CNP 3 months ago Left sided abdominal pain [facility] Family [facility] - Austyn Crockett APRN, CNP 6 months ago Schizophrenia, unspecified type (HCC) [facility] Family [facility] - Austyn Crockett APRN, CNP 7 months ago SOB (shortness of breath) [facility] - Shad Lopez MD 9 months ago Urinary retention [facility] Family [facility] - Austyn Crockett APRN, CNP Upcoming Appointments Future Appointments In 3 days [facility], [facility] In 3 weeks Shad Lechuga MD [facility] Medical [facility] - [place], [facility] FILING OR REGISTRY CLERK - Recent and Past Visits Recent Visits Date Type Provider Dept 05/05/21 Office Visit Austyn Park APRN, DMITRIY [facility] 02/17/21 Office Visit Austyn Park APRN, DMITRIY [facility] 11/13/20 Office Visit Austyn Park APRN, DMITRIY [facility] 10/13/20 Telemedicine Shad Lechuga MD [facility] 08/13/20 Office Visit Austyn Park APRN, DMITRIY [facility] 08/04/20 Office Visit Austyn Park APRN, DMITRIY [facility] 03/19/20 Office Visit Austyn Park APRN, DATA TRANSCRIBER [facility] Showing recent visits within past 460 days with a meds authorizing provider and meeting all other requirements Future Appointments Date Type Provider Dept 06/09/21 Appointment [facility]ad [facility]uga MD [facility] Show[facility] future appointments within next 90 days with a meds authorizing provider and meeting all other requirements WORK CIGAR MACHINE OPERATOR documented in this encounter Plan of Treatment [...] Total Score: 1 03/03/20 21 3:14 PM SOFT WORK CIGAR MACHINE OPERATOR documented as of this encounter Care Teams Horseback Excavator Relationship Specialty Start Date End Date Shad Lechuga MD #[address] [address] PCP - General Family Medicine 07/20/18 Win Yusuf MD PhD [address] [place] [address] Neurosurgeon Neurological Surgery 05/13/19 Dania Rojo, FADIA MA Rubber Attacher Color Straining Bag Washer 02/24/25 documented as of this encounter
--- OUTSIDE RECORDS SUMMARY | 2025-05-28 14:22 | XMS_ITS | Encounter Summary ---
Author Organization [facility] Address [address] [place] [address] Phone Care Team Providers Care Napkin Machine Operator Name Role Phone Shad Lechuga MD Primary Care Provider [phone] Win Yusuf MD PhD Unavailable [phone] Dania Rojo NIGHT SHIFT SUPERVISOR Unavailable Unavailab le Reason for Visit * Reason Comments Medication Refill Encounter Details Date Type Department Care Team (Late st Contact Info) Description 05/20/2022 Refill [facility] #2 [place] [phone] Austyn Park, IT CORPORATE RECRUITER, RAILROAD CONDUCTOR #[address] [address] Medication Refill Social History Tobacco Use Types [...] CDT Gender Identity Female 04/28/2023 11:45 PM IN HOME NANNY Sexual Orientation Straight 04/28/2023 11 :45 PM IN HOME NANNY COVID-19 Exposure Response Date Recorded In the last 10 days, have yo u been in contact with someone who was confirmed or suspected to have Coronavirus/COVID-19? No / Unsure 04/26/2022 1:20 PM IN HOME NANNY documented as of this encounter Miscellaneous Notes * Telephone Encounter - Bela Ceja RN - 05/20/2022 9:53 AM CST Discontinued by Austyn 05/03/22 for Contraindication. HOME NANNY * Telephone Encounter - Bela Ceja RN - 05/20/2022 9:52 AM CST Images from the original note were not included. Acetaminophen-Codeine Dispensed Days Supply Quantity Provider Pharmacy ACETAMINOPHEN-COD #3 TABLET 04/26/2022 15 60 Tablet Shad Lechuga MD [facility] ... HOME NANNY documented in this encounter Plan of Treatment Not on file documented as of this encounter Visit Diagnoses Not on filedocumented in this encounter Additional Health Concerns Infection Onset Date Last Indicated Resolved Time COVID - 19 09/02/2024 09/02/2024 09/02/2024 9:27 PM CDT Assessment Noted Time PHQ-9 Depression Total Score: 1 08/13/19 21 3:14 PM IN HOME NANNY documented as of this encounter Care Teams Napkin Machine Operator Relationship Specialty Start Date End Date Shad Lechuga MD #[address] [address] PCP - General Family Medicine 07/20/18 Win Yusuf MD PhD [address] [place] [address] Neurosurgeon Neurological Surgery 05/13/19 Dania Rojo LSW [place] Insulating Machine Operator Singing Teacher 02/24/25 documented as of this encounter
--- OUTSIDE RECORDS SUMMARY | 2025-05-28 14:22 | XMS_ITS | Encounter Summary ---
Author Organization [facility] Address [address] [place] [address] Phone Care Team Providers Care Photoengraving Finisher Name Role Phone Shad Lechuga MD Primary Care Provider [phone] Win Yusuf MD PhD Unavailable [phone] Dania Rojo FORMULA MAKER Unavailable Unavailab le Reason for Visit * Reason Comments Medication Refill Encounter Details Date Type Department Care Team (Late st Contact Info) Description 06/13/2023 Refill [facility] [place] [phone] Austyn Park, SEATING UPHOLSTERER, LUMBER MATERIAL HANDLER #[address] [address] Medication Refill Social History Tobacco Use Types [...] CDT Gender Identity Female 04/28/2023 11:45 PM ENGINEERING LIBRARIAN Sexual Orientation Straight 04/28/2023 11 :45 PM ENGINEERING LIBRARIAN documented as of this encounter Miscellaneous Notes * Telephone Encounter - Bryanna Bautista RMA - 06/21/2023 2:30 PM ENGINEERING LIBRARIAN LVm NEERING LIBRARIAN * Telephone Encounter - Bryanna Bautista RMA - 06/20/2023 10:55 AM ENGINEERING LIBRARIAN LVM to return call NEERING LIBRARIAN * Telephone Encounter - Shad Lechuga MD - 06/13/2023 5:16 PM ENGINEERING LIBRARIAN No more refills on controlled substances till she is seen. Please schedule her with me or Austyn. Thanks! NEERING LIBRARIAN * Telephone Encounter - Bela Ceja RN [...] Dept 07/27/22 [facility] recent visits within past 365 days and meeting all other requirements Future Appointments No visits were found meeting these conditions. Showing future appointments within next 90 days and meeting all other requirements NEERING LIBRARIAN documented in this encounter Plan of Treatment Not on file documented as of this encounter Visit Diagnoses Diagnosis Chronic pain syndrome documented in this encounter Additional Health Concerns Infection Onset Date Last Indicated Resolved Time COVID - 19 09/02/2024 09/02/2024 09/02/2024 9:27 PM CDT Assessment Noted Time PHQ-9 Depression Total Score: 1 08/13/19 21 3:14 PM ENGINEERING LIBRARIAN documented as of this encounter Care Teams Photoengraving Finisher Relationship Specialty Start Date End Date Shad Lechuga MD #[address] [address] PCP - General Family Medicine 07/20/18 Win Yusuf MD PhD [address] [place] [address] Neurosurgeon Neurological Surgery 05/13/19 Dania Rojo LSW [place] Safety Grooving Machine Operator Independent Contractor 02/24/25 documented as of this encounter
--- OUTSIDE RECORDS SUMMARY | 2025-05-28 14:22 | XMS_ITS | Encounter Summary ---
Author Organization [facility] Address [address] [place] [address] Phone Care Team Providers Care Property And Equipment Clerk Name Role Phone Shad Lechuga MD Primary Care Provider [phone] Win Yusuf MD PhD Unavailable [phone] Dania Rojo SOLE BLACKER Unavailable Unavailab le Reason for Visit * Reason Comments Medication Refill Encounter Details Date Type Department Care Team (Late st Contact Info) Description 09/17/2022 Refill [facility] [address] [place] [address] Shad Lechuga MD [address] [address] Medication Refill Social History Tobacco Use Types [...] CDT Gender Identity Female 04/28/2023 11:45 PM KEEPER HEAD Sexual Orientation Straight 04/28/2023 11 :45 PM KEEPER HEAD documented as of this encounter Miscellaneous Notes [...] Dept 07/27/22 Office Visit Shad Lechuga MD [facility] 04/26/22 Office Visit Austyn Park APRN, CNP [facility] 11/25/21 Office Visit Austyn Park APRN, DMITRIY [facility] Showing recent visits within past 365 [...] Total Score: 1 08/13/19 21 3:14 PM KEEPER HEAD documented as of this encounter Care Teams Property And Equipment Clerk Relationship Specialty Start Date End Date Shad Lechuga MD [address] [address] PCP - General Family Medicine 07/20/18 Win Yusuf MD PhD [address] [place] [address] Neurosurgeon Neurological Surgery 05/13/19 Dania Rojo LSW [place] Mechanical Engineering Teacher Handbag Stitcher 02/24/25 documented as of this encounter
--- OUTSIDE RECORDS SUMMARY | 2025-05-28 14:23 | XMS_ITS | Clinical Summary ---
Author Organization [facility] Address [address] [address] Phone Care Team Providers Care Button Breaker Operator Name Role Phone Shad Lechuga MD Primary Care Provider [phone] Win Yusuf MD PhD Unavailable Dania Rojo LOGISTIC MANAGER Unavailable Unavailab le Allergies Active Allergy Reactions [...] daily. 30 Tablet 09/15/20 25 Active Umeclidinium Dexter (Incruse Ellipta) 62.5 MCG/ACT AEROSOL POWDER, BREATH [...] Team Description 05/07/2025 Patient Outreach [facility] Farm Management Agent Management [address] [place] [phone] Moraima Rogers Care Management (Monthly monitoring call-(Apr)) 05/02/2025 Refill [facility] [address] [place] [phone] Shad Lechuga MD Medication Refill 05/01/2025 Refill [facility] [address] [place] [phone] Austyn Park APRN, DMITRIY Medication Refill 04/09/2025 Patient Outreach [facility] Farm Management Agent Management [address] [place] [phone] Dania Rojo LSW Care Management (Monthly monitoring) 03/25/2025 Patient Outreach [facility] Farm Management Agent Management [address] [place] [phone] Moraima Rogers Care Management (Bi-weekly monitoring call) 03/13/2025 Telephone [facility] [address] [place] [phone] Tylor Monroe, RAJI Cough (Care Signal alert - reports larger amount of sputum) 03/10/2025 Patient Outreach [facility] Farm Management Agent Management [address] [place] [phone] Dania Rojo LSW Care Management (Weekly monitoring ) 03/05/2025 Patient Outreach [facility] Farm Management Agent Management [address] [place] [phone] Dania Rojo LSW Care Management (Weekly monitoring ) 03/05/2025 Telephone [facility] [address] [place] [phone] Magda Brooks, RAJI COPD ([facility]- remote patient monitoring program- Chronic Obstructive Pulmonary Disease program. /) 02/26/2025 Telephone [facility] [address] [place] [address] Shad Lechuga MD Medication Refill from Last 3 Months Immunizations Immunization Administration Dates Next Due Covid-19, Mrna, Lnp-s, Pf, 3 0 Mcg/0.3 Ml Dose ([employer]) 01/28/2021,12/30/2020 Influenza Vaccine, Quadrivalent, PF 11/0 01/2023,03/20/2022,08/04/2021,2020,03/19/2020,03/07/2019,06/19/2017() [...] week 07/31/2024 How often do you attend [facility] or anglican services? Never 07/31/2024 Do you belong to any clubs o r organizations such as yazidi groups, unions, fraternal or athletic groups, or [...] Total Score - Questions 1-9 22 02/10 [facility] - Occupational Stress Questionnaire Answer Date [...] any time in the past [address] [facility], were you homeless or living in a senior living (including now)? Yes 07/31/2024 Social Connection and Isolation Panel Answer Date Recorded In a typical week, how many times do you talk on the phone with family, friends, or neighbors? Three times a week 02/24/2025 How often do you get togethe r with friends or relatives? Once a week 02/24/2025 How often do you attend chur ch or anglican services? Never 02/24/2025 Do you belong to any clubs o r organizations such as yazidi groups, unions, fraternal or athletic groups, or [...] medical care, and heating? Somewhat hard 02/24/2025 [facility] - Occupational Stress [...] any time in the past [address] [facility], were you homeless or living in a senior living (including now)? Yes 02/24/[address] [facility] Utilities Answer Date Recorded In [...] CDT Gender Identity Female 04/28/2023 11:45 PM TRANSPORTATION SUPERVISOR Sexual Orientation Straight 04/28/2023 11 :45 PM TRANSPORTATION SUPERVISOR Last Filed Vital Signs Vital Sign Reading [...] Discontinued 07/28/2021, 03/19/2020 Human Papillomavirus (HPV) Immunization (No Doses Required) Completed Meningococcal Immunization (ACWY) Aged Out No longer eligible based on patient's age to complete this topic Rotavirus Immunization Aged Out No lo nger eligible based on patient's age to complete this topic Goals Goal Patient Goal Type Associated Problems Recent Progress Patient-Stated? Author Manage My Emotions Patient Goals Not on track( 025 10:45 AM TRANSPORTATION SUPERVISOR) Yes Dania Rojo LSW Note: Follow Up Date 06/05 - join a support group SW CM provided contact numbers and addressed for recovery support programs based in [facility] where patient is staying Patient will call [...] My Community-food access Patient Goals On track( 025 10:45 AM TRANSPORTATION SUPERVISOR) No Dania Rojo LSW Note: Follow [...] Patient Goals On track( 025 10:45 AM TRANSPORTATION SUPERVISOR) Yes Dania Rojo LSW Note: Follow Up Date Month of 06/05 - arrange a ride through an agency 1 week before appointment - ask family or friend for a ride - keep a calendar with prescription refill dates - keep a calendar with appointment dates [facility] provided contact number for [facility] Medicare transportation line Patient will call and arrange rides as needed or ask family for rides Why is this important? Part of staying healthy is seeing the doctor for follow-up care. If you forget your appointments, there are some things you can do to stay on track. Notes: Medical Devices Implanted Type Area Organic Lab Worker Device Identifier Shelf Expiration Date Model / Serial / Lot Mynx Implanted:Qty: 1 on 06/19/2017 by Qian Magaña MD at [facility] IMPLANT Right: Groin 04/11/2019 / / [id number] Procedures Procedure Name Priority Date/Time Associated Diagnosis Comments PROTIME (PT) (PROTHROMBIN TIME) 05/14/2025 12:00 AM TRANSPORTATION SUPERVISOR COMPLETE BLOOD COUNT (CBC) WITH DIFF 05/14/2025 12:00 AM TRANSPORTATION SUPERVISOR APTT (PTT) 05/14/2025 12:00 AM TRANSPORTATION SUPERVISOR TROPONIN I (TRP I) 05/14/2025 12 :00 AM TRANSPORTATION SUPERVISOR CMP (COMPREHENSIVE METABOLIC PANEL) 05/14/2025 12:00 AM TRANSPORTATION SUPERVISOR XR - CHEST 05/14/2025 12:[address] - HEAD/NECK 05/14/2025 12:00 AM TRANSPORTATION SUPERVISOR XR - UPPER EXTREMITY 05/14/2025 12:00 AM TRANSPORTATION SUPERVISOR DEMI SCREENING BILATERAL DIGITAL W CAD W IBIS Routine 12/05/2023 8:57 AM CDT Encounter for screening mammogram for malignant neoplasm of breast CT CHEST SCREENING WO Routine 10/25/2023 12:27 PM CDT Personal history of nicotine dependence from Last 3 Months or Most Recently Relevant to Health Maintenance Results * XR - UPPER EXTREMITY (05/14/2025 12:00 AM TRANSPORTATION SUPERVISOR) 05/14/2025 us Provider Scan IMG DIAGNOSTIC ORDERABLES Final Result Performing Organization Address [facility] de Phone Number SCAN * XR - CHEST (05/14/2025 12:00 AM TRANSPORTATION SUPERVISOR) 05/14/2025 us Provider Scan IMG DIAGNOSTIC ORDERABLES Final Result Performing Organization Address [facility] de Phone Number SCAN * CT - HEAD/NECK (05/14/2025 12:00 AM TRANSPORTATION SUPERVISOR) 05/14/2025 us Provider Scan IMG CT ORDERABLES Final Result Performing Organization [facility] de Phone Number SCAN * TROPONIN I (TRP I) (05/14/2025 12:00 AM TRANSPORTATION SUPERVISOR) 05/14/2025 us Provider Scan CHEMISTRY ORDERABLES Final Resul t Performing [facility] de Phone Number SCAN * APTT (PTT) (05/14/2025 12:00 AM TRANSPORTATION SUPERVISOR) 05/14/2025 us Provider Scan HEMATOLOGY ORDERABLES Final Resu lt Performing Organization Address [facility] de Phone Number SCAN * PROTIME (PT) (PROTHROMBIN TIME) (05/14/2025 12:00 AM TRANSPORTATION SUPERVISOR) INR 1.0 SCAN 05/14/2025 us Provider Scan HEMATOLOGY ORDERABLES Final Resu lt Performing Organization [facility] de Phone Number SCAN * CMP (COMPREHENSIVE METABOLIC PANEL) (05/14/2025 12:00 AM TRANSPORTATION SUPERVISOR) 05/14/2025 us Provider Scan CHEMISTRY ORDERABLES Final Resul t SCAN * COMPLETE BLOOD COUNT (CBC) WITH DIFF (05/14/2025 12:00 AM TRANSPORTATION SUPERVISOR) 05/14/2025 us Provider Scan HEMATOLOGY ORDERABLES Final Resu lt SCAN * DEMI SCREENING BILATERAL DIGITAL W CAD [...] Comparison is made to exam dated: 08/01/2018 [facility]. BREAST TISSUE:There are scattered fibroglandular densities [...] next screening exam. Electronically signed by: Renetta paez/elmer:12/06/2023 11:42:03 Tire Recapper(s): RT Blanquita(R)(M), [facility] letter sent: Normal Exam Reading location: [facility] BI-RADS: 1 Negative Procedure Note Renetta Maloney [...] Comparison is made to exam dated: 08/01/2018 [facility]. BREAST TISSUE:There are scattered fibroglandular densities in [...] next screening exam. Electronically signed by: Renetta Maloney M.D. ab/penrad:12/06/2023 11:42:03 Tire Recapper(s): RT Blanquita(R)(M), [facility] letter sent: Normal Exam Reading location: [facility] BI-RADS: 1 Negative us Austyn Park APRN, STRUCTURAL DRAFTER IMG MAMMO ORDERA BLES Final Result * [...] Suleiman Herring M.D. AM: AM Report ID: [id number] Reading Location: [id number] Procedure Note Suleiman Herring MD - 10/25/2023 [...] Suleiman Herring M.D. AM: AM Report ID: [id number] Reading Location: [id number] IMPRESSION: 1. Unchanged 3 mm solid nodule posteriorly in the left upper lobe. No new pulmonary nodules. 2. Mild emphysematous changes to the lungs. Lung-RADS category 2: Benign appearance or behavior. Recommendation: Low dose Screening CT of chest in 12 months. Austyn Park APRN, CNP G CT ORDERABLE S Final Result from Last 3 Months or Most Recently Relevant to Health Maintenance Insurance [address] [place] [id number] MEDICARE [facility] [place] [id number] Advance Directives * Full Code (Latest Code [...] measures to stabilize the patient. Care Teams Button Breaker Operator Relationship Specialty Start Date End Date Shad Lechuga MD #[address] [address] PCP - General Family Medicine 07/20/18 Win Yusuf MD PhD [address] [place] [address] Neurosurgeon Neurological Surgery 05/13/19 Dania Rojo LSW [place] Sales Commissions Analyst Assisted Living Coordinator 02/24/25
--- OUTSIDE RECORDS SUMMARY | 2025-05-28 14:23 | XMS_ITS | Clinical Summary ---
Author Organization [facility] [employer] Address [address] [place] [address] Care Team Providers Care Director Of Outpatient Services Name Role Phone Unknown, Provider Primary Care Provider Unavaila ble Source Comments [facility] Affiliates and Associated Physician Practices is amultiple site organization consisting of ambulatory clinics and hospital sitesin [place], [place], [place] and [place]. This disclosure is being madepursuant to the Care Everywhere program and may not contain all information available regarding this patient. Last updated 18.[facility] [employer] Social History Tobacco Use Types Packs/Day Years Used Date Smoking Tobacco: Never Assessed Comments Unknown Sex and Gender Information Value Date Recorded Sex Assigned at Female 01/24/2024 8:03 AM CDT Legal Sex Female 8:50 AM CDT Gender Identity Female 01/24/2024 8:03 AM CDT Sexual Orientation Choose not to disclose 2023 8:03 AM CDT Plan of Treatment Health Maintenance Due Date Last Done Comments COLOGUARD (AGES 45-75) - COL ON CA SCREENING 1968 COLON MONITORING 1968 COLONOSCOPY - COLON CA SCREENING 1968 CT COLONOGRAPHY - COLON CA SCREENING 1968 Colorectal Cancer Screening 1968 FIT - COLON CA SCREENING 1968 FLEX SIG - COLON CA SCREENING 1968 LIPID TESTING 1968 MAMMOGRAM 1968 HIV SCREENING 10/13/1983 HEPATITIS C SCREENING 10/08/1986 DTAP/TDAP/TD VACCINES (1 - Tdap) 10/13/1987 HEPATITIS B VACCINE (1 of 3 - 19+ 3-dose series) 10/13/1987 PAP SMEAR 1989 PNEUMOCOCCAL VACCINE 50+ (1 of 1 - PCV) 2018 ZOSTER VACCINE (1 of 2) 2018 DEPRESSION SCREENING 06/12/2024 COVID-19 VACCINE (1 - 2024-2 6 season) 2025 INFLUENZA VACCINE (#1) 2025 HIB VACCINE Aged Out No longer eligi ble based on patient's age to complete this topic HPV VACCINE Aged Out No longer eligi ble based on patient's age to complete this topic MENINGOCOCCAL (Group B) VACC INE SHARED DECISION-MAKING Aged Out No longer eligibl e based on patient's age to complete this topic MENINGOCOCCAL GROUPS A/C/Y/W VACCINE Aged Out No longer eligible b ased on patient's age to complete this topic Insurance Care Teams Director Of Outpatient Services Relationship Specialty Start Date End Date Unknown, Provider PCP - General 01/24/24
--- OUTSIDE RECORDS SUMMARY | 2025-05-28 14:23 | XMS_ITS | Encounter Summary ---
Author Organization [facility] Address [address] [place] [address] Phone Care Team Providers Care Youth Liaison Officer Name Role Phone Shad Lechuga MD Primary Care Provider [phone] Win Yusuf MD PhD Unavailable Dania Rojo LAST REPAIRER Unavailable Unavailab le Dania Rojo LAST REPAIRER Unavailable Unavailab le Reason for Visit * Reason Onset Date Comments Medication Refill 06/15/2020 Encounter Details Date Type Department Care Team (Late st Contact Info) Description 06/15/2020 Telephone [facility] [address] [place] [phone] Shad Lechuga MD [address] [address] Medication Refill Social History Tobacco Use Types [...] CDT Gender Identity Female 04/28/2023 11:45 PM LAWN MOWER REPAIRER Sexual Orientation Straight 04/28/2023 11 :45 PM LAWN MOWER REPAIRER COVID-19 Exposure Response Date Recorded In the last month, have you been in contact with someone who was confirmed or suspected to have Coronavirus / COVID-19? No / Unsure 06/15/2020 10:23 AM LAWN MOWER REPAIRER documented as of this encounter Miscellaneous Notes * Telephone Encounter - Stella Ibrahim - 06/15/2020 10:27 AM CST Name of Medication: HYDROcodone-acetaminophen (NORCO) 7.5-325 MG Tablet Pharmacy/location for refill to be sent to (if is not a written script)? [facility] [place], [place] - [address] [place] [address] 30 or 90 day supply? 120 Tab MOWER REPAIRER documented in this encounter Plan of Treatment [...] documented as of this encounter Care Teams Youth Liaison Officer Relationship Specialty Start Date End Date Shad Lechuga MD #[address] [address] PCP - General Family Medicine 07/20/18 Win Yusfu MD PhD [address] [place] [address] Neurosurgeon Neurological Surgery 05/13/19 Dania Rojo LSW [place] Author 08/12/20 12/03/20 Dania Rojo LSW [place] Second Helper Author 02/24/25 documented as of this encounter
--- OUTSIDE RECORDS SUMMARY | 2025-05-28 14:23 | XMS_ITS | Encounter Summary ---
Author Organization [facility] Address [address] [place] [address] Phone Care Team Providers Care Photovoltaic Testing Technician Name Role Phone Shad Lechuga MD Primary Care Provider [phone] Win Yusuf MD PhD Unavailable [phone] Dania Rojo MARKETING AND PUBLIC RELATIONS MANAGER Unavailable Unavailab le Dania Rojo MARKETING AND PUBLIC RELATIONS MANAGER Unavailable Unavailab le Reason for Visit * Reason Comments Medication Refill Encounter Details Date Type Department Care Team (Late st Contact Info) Description 06/16/2020 Refill [facility] [address] [place] [phone] Shad Lechuga MD #[address] [address] Medication Refill Social History Tobacco Use Types [...] CDT Gender Identity Female 04/28/2023 11:45 PM MATERIALS HANDLING COORDINATOR Sexual Orientation Straight 04/28/2023 11 :45 PM MATERIALS HANDLING COORDINATOR COVID-19 Exposure Response Date Recorded In the last month, have you been in contact with someone who was confirmed or suspected to have Coronavirus / COVID-19? No / Unsure 06/15/2020 10:23 AM MATERIALS HANDLING COORDINATOR documented as of this encounter Miscellaneous Notes * Telephone Encounter - Shad Lechuga MD - 06/19/2020 9:17 PM MATERIALS HANDLING COORDINATOR Duplicate request. RIALS HANDLING COORDINATOR * Telephone Encounter - Zita Anderson RN [...] Visits 2 months ago Chronic pain syndrome [facility] Austyn Crockett APN, DMITRIY 6 months ago Chronic pain syndrome [facility]yn Crockett APN, DMITRIY 1 year ago DDD (degenerative disc disease), cervical [facility] Austyn Crockett APN, DMITRIY 1 year ago Gastroesophageal reflux disease, esophagitis presence not specified [facility] Shad Alvarez MD 1 year ago Gynecologic malignancy (HCC) [facility] Austyn Crockett APN, DMITRIY Upcoming Appointments Future Appointments In 4 weeks Shad Lechuga MD [facility] CREDIT CARD CONTROL CLERK - Recent and Past Visits Recent Visits Date Type Provider Dept 03/19/20 Office Visit Austyn Park APN, DMITRIY [facility] 12/11/19 Office Visit Austyn Park APN, DMITRIY [facility] 05/13/19 Office Visit Austyn Park APN, [facility] Showing recent visits within past 460 days with a meds authorizing provider and meeting all other requirements Future Appointments Date Type Provider Dept 07/15/20 Appointment Shad Lechuga MD [facility] Showing future appointments within next 90 days with a meds authorizing provider and meeting all other requirements RIALS HANDLING COORDINATOR documented in this encounter Plan of Treatment [...] documented as of this encounter Care Teams Photovoltaic Testing Technician Relationship Specialty Start Date End Date Shad Lechuga MD #[address] [address] PCP - General Family Medicine 07/20/18 Win Yusuf MD PhD [address] [place] [address] Neurosurgeon Neurological Surgery 05/13/19 Dania Rojo LSW [place] Molder Foam Rubber 08/12/20 12/03/20 Dania Rojo LSW [place] Field Seismologist Molder Foam Rubber 02/24/25 documented as of this encounter
--- OUTSIDE RECORDS SUMMARY | 2025-05-28 14:23 | XMS_ITS ---
Author Organization [facility] Address [address] [facility] [address] [place] [address] Phone Care Team Providers Care Visually Impaired Teacher Name Role Phone Shad Lechuga MD Primary Care Provider [phone] Win Yusuf MD PhD Unavailable [phone] Dania Rojo Unavailable Unavailab le Ambulatory Complex Care Management Status:Enrolled (Active) Program category:Complex Care Management Start date:02/24/2025 Enrollment date:02/24/2025 Enrollment reason:Identified using referral data Current support & services provided:Pricing/Signage Team Member Care Managed Related social drivers of health:Social Connections, Tobacco Use, Depression, Stress, Physical Activity, Food Insecurity, Transportation Needs, Housing Stability Case Team Name Relationship Phone Dania BARNEYW(Responsible Staff) Pricing/Signage Team Member Marine Cargo Specialist Continued Care and Services Coordination
--- OUTSIDE RECORDS SUMMARY | 2025-05-28 14:23 | XMS_ITS | Encounter Summary ---
Author Organization [facility] Address [address] [place] [address] Phone Care Team Providers Care Red Hat Linux Administrator Name Role Phone Shad Lechuga MD Primary Care Provider [phone] Win Yusuf MD PhD Unavailable [phone] Dania Rojo TRAFFIC SIGN SUPERVISOR Unavailable Unavailab le Dania Rojo TRAFFIC SIGN SUPERVISOR Unavailable Unavailab le Reason for Visit * Reason Onset Date Comments Medication Refill 10/11/2020 Encounter Details Date Type Department Care Team (Late st Contact Info) Description 10/11/2020 Refill [facility] [address] [place] [id number] Shad Lechuga MD [address] [address] Medication Refill Social History Tobacco Use Types [...] CDT Gender Identity Female 04/28/2023 11:45 PM STONE DERRICKMAN AND RIGGER Sexual Orientation Straight 04/28/2023 11 :45 PM STONE DERRICKMAN AND RIGGER COVID-19 Exposure Response Date Recorded In the [...] ago Chest pain, unspecified type [facility] - Family [facility] - [facility] [place] APN, TAPE FOLDING MACHINE OPERATOR 6 months ago Chronic pain syndrome [facility] - Family Medicine - [facility] [place] APN, DMITRIY 10 months ago Chronic pain syndrome [facility] - Family Medicine - [facility] [place] APN, TAPE FOLDING MACHINE OPERATOR 1 year ago DDD (degenerative disc disease), cervical [facility] - [facility] [place] APN, DMITRIY Upcoming Appointments HEARING DOG TRAINER - Recent and Past Visits Recent Visits Date Type Provider Dept 08/13/20 Office Visit [facility], DMITRIY [facility] [place] 08/04/20 Office Visit [place] [place] APN, DMITRIY [facility] 03/19/20 Office Visit [place] [place] APN, DMITRIY [facility] 12/11/19 Office Visit [place] [place] APN, DMITRIY [facility] Showing recent visits within past 460 days [...] Urinary retention [facility] - [facility] [place] APN, DMITRIY 2 months ago Chest pain, unspecified type [facility] Family [facility] - [facility] [place] APN, TAPE FOLDING MACHINE OPERATOR 6 months ago Chronic pain syndrome [facility] Family [facility] - [facility] [place] APN, TAPE FOLDING MACHINE OPERATOR 10 months ago Chronic pain syndrome [facility] Family [facility] - [facility] [place] APN, TAPE FOLDING MACHINE OPERATOR 1 year ago DDD (degenerative disc disease), cervical [facility] APN, TAPE FOLDING MACHINE OPERATOR Upcoming Appointments HEARING DOG TRAINER - Recent and Past Visits Recent Visits Date Type Provider Dept 08/13/20 Office Visit [facility] [place] APN, DMITRIY [facility] [place] 08/04/20 Office Visit [place] [place] APN, DMITRIY [facility] [place] 03/19/20 Office Visit [place] [place] APN, DMITRIY [facility] [place] 12/11/19 Office Visit [place] [place] APN, DMITRIY [facility] Showing recent visits within past 460 days [...] Total Score: 1 08/13/19 21 3:14 PM STONE DERRICKMAN AND RIGGER documented as of this encounter Care Teams Red Hat Linux Administrator Relationship Specialty Start Date End Date Shad Lechuga MD [address] [address] PCP - General Family Medicine 07/20/18 Win Yusuf MD PhD [address] [place] [address] Neurosurgeon Neurological Surgery 05/13/19 Dania Rojo LSW [place] Machine Sole Leveler 08/12/20 12/03/20 Dania Rojo LSW [place] Group Segment Consultant Machine Sole Leveler 02/24/25 documented as of this encounter
--- OUTSIDE RECORDS SUMMARY | 2025-05-28 14:23 | XMS_ITS ---
Author Organization [facility] Address [address] [facility] [address] [facility] [address] [place] [address] Phone Care Team Providers Care Licensed Loan Officer Assistant Name Role Phone Shad Lechuga MD Primary Care Provider [phone] Win Yusuf MD PhD Unavailable [phone] Dania Rojo SERVICING REP Unavailable Unavailab le [place] Service Episode Status:Identified (Enrolling) Start date:02/24/2025 Related program episode:OnCall Chronic Condition Monitoring (Active) Continued Care and Services Coordination
--- OUTSIDE RECORDS SUMMARY | 2025-05-28 14:23 | XMS_ITS | Encounter Summary ---
Author Organization [facility] Address [address] [place] [address] Phone Care Team Providers Care Switchboard Operator Receptionist Name Role Phone Shad Lechuga MD Primary Care Provider [phone] Win Yusuf MD PhD Unavailable [phone] Dania Rojo AUTOMOTIVE PROFESSIONAL Unavailable Unavailab le Reason for Visit * Reason Onset Date Comments Medication Refill 02/25/2025 Encounter Details Date Type Department Care Team (Late st Contact Info) Description 02/25/2025 Telephone [facility] - [facility] [address] [place] [address] Shad Lechuga MD [address] [id number] Medication Refill Social History Tobacco Use Types [...] often do you attend chur ch or denominational services? Never 07/31/2024 Do you belong to any clubs o r organizations such as presybeterian groups, unions, fraternal or athletic groups, or [...] Total Score - Questions 1-9 22 02/10 [facility] of Occupat ional Health - Occupational Stress [...] time in the past [address] [facility], were you homeless or living in a care home (including now)? Yes 07/31/2024 Social Connection and Isolation Panel Answer Date Recorded In a typical week, how many times do you talk on the phone with family, friends, or neighbors? Three times a week 02/24/2025 How often do you get togethe r with friends or relatives? Once a week 02/24/2025 How often do you attend chur ch or denominational services? Never 02/24/2025 Do you belong to any clubs o r organizations such as presybeterian groups, unions, fraternal or athletic groups, or [...] medical care, and heating? Somewhat hard 02/24/2025 [facility] of Occupat ional Health - Occupational Stress [...] were you homeless or living in a care home (including now)? Yes 02/24/2025 [facility] Utilities Answer Date Recorded In the past 12 months has th e electric, gas, oil, or water company threatened to shut off services in your home? No 02/24/2025 Sexually Active Control Partners Comments Not Currently Comments No Sex and Gender Information Value Date Recorded Sex Assigned at Not on file Legal Sex Female 9:25 PM CDT Gender Identity Female 04/28/2023 11:45 PM PROFESSOR OF FRENCH Sexual Orientation Straight 04/28/2023 11 :45 PM PROFESSOR OF FRENCH documented as of this encounter Plan of Treatment Not on file documented as of this encounter Goals Goal Patient Goal Type Associated Problems Recent Progress Patient-Stated? Author Manage My Emotions Patient Goals Not on track( 025 10:45 AM PROFESSOR OF FRENCH) Yes Dania Rojo LSW Note: Follow Up Date Month of 06/05 - join a support group MANI TAYLOR provided contact numbers and addressed for recovery support programs based in [facility] where patient is staying Patient will call [...] access Patient Goals On track( 10:45 AM PROFESSOR OF FRENCH) No Dania Rojo LSW Note: Follow Up [...] Patient Goals On track( 025 10:45 AM PROFESSOR OF FRENCH) Yes Dania Rojo LSW Note: Follow Up Date 06/05 - arrange a ride through an agency 1 week before appointment - ask family or friend for a ride - keep a calendar with prescription refill dates - keep a calendar with appointment dates [facility] provided contact number for [facility] Medicare transportation line Patient will call and [...] documented as of this encounter Care Teams Switchboard Operator Receptionist Relationship Specialty Start Date End Date Shad Lechuga MD #[address] [address] PCP - General Family Medicine 07/20/18 Win Yusuf MD PhD [address] [place] [address] Neurosurgeon Neurological Surgery 05/13/19 Dania Rojo LSW [place] Dental Assistant Medical Assistant Dairy Products Maker 02/24/25 documented as of this encounter
--- OUTSIDE RECORDS SUMMARY | 2025-05-28 14:23 | XMS_ITS ---
Author Organization [facility] Address [address] [facility] [address] [facility] [address] [place] [address] Phone Care Team Providers Care High Density Finishing Operator Name Role Phone Shad Lechuga MD Primary Care Provider [phone] Win Yusuf MD PhD Unavailable [phone] Dania Rojo WIRE CUTTER Unavailable Unavailab le [place] Chronic Condition Monitoring Status:Enrolled (Active) Program category:Remote Patient Monitoring Start date:07/10/2024 Enrollment date:07/10/2024 Related social drivers of health:Social Connections, Alcohol Use, Tobacco Use, Financial Resource Strain, Stress, Physical Activity,Food Insecurity, Transportation Needs, Housing Stability, Utilities Related service episodes:Keenan [facility] Service Episode (Enrolling) Continued Care and Services Coordination
--- OUTSIDE RECORDS SUMMARY | 2025-05-28 14:23 | XMS_ITS | Encounter Summary ---
Author Organization [facility] Address [address] [place] [address] Phone Care Team Providers Care Viner Operator Name Role Phone Shad Lechuga MD Primary Care Provider [phone] Win Yusuf MD PhD Unavailable [phone] Dania Rojo HEALTH EVALUATOR Unavailable Unavailab le Dania Rojo HEALTH EVALUATOR Unavailable Unavailab le Reason for Visit * Reason Comments Medication Refill Encounter Details Date Type Department Care Team (Late st Contact Info) Description 11/05/2020 Refill [facility] [address] [place] [phone] Shad Lechuga MD [address] [address] Medication Refill Social History Tobacco Use Types [...] CDT Gender Identity Female 04/28/2023 11:45 PM LABORER LANDSCAPE Sexual Orientation Straight 04/28/2023 11 :45 PM LABORER LANDSCAPE COVID-19 Exposure Response Date Recorded In the [...] Total Score: 1 08/13/19 21 3:14 PM LABORER LANDSCAPE documented as of this encounter Care Teams Viner Operator Relationship Specialty Start Date End Date Shad Lechuga MD #[address] [address] PCP - General Family Medicine 07/20/18 Win Yusuf MD PhD [address] [place] [address] Neurosurgeon Neurological Surgery 05/13/19 Dania Rojo LSW [place] Audit Analyst 08/12/20 12/03/20 Dania Rojo LSW [place] Email Operations Manager Audit Analyst 02/24/25 documented as of this encounter
--- OUTSIDE RECORDS SUMMARY | 2025-05-28 14:23 | XMS_ITS | Encounter Summary ---
Author Organization [facility] Address [address] [place] [address] Phone Care Team Providers Care Land Checker Name Role Phone Shad Lechuga MD Primary Care Provider [phone] Win Yusuf MD PhD Unavailable [phone] Dania Rojo RADIOTELEPHONE TECHNICAL OPERATOR Unavailable Unavailab le Dania Rojo RADIOTELEPHONE TECHNICAL OPERATOR Unavailable Unavailab le Reason for Visit * Reason Onset Date Comments Medication Management 07/27/2020 Encounter Details Date Type Department Care Team (Late st Contact Info) Description 07/27/2020 Telephone [facility] [address] [place] [phone] Shad Lechuga MD #[address] [address] Medication Management Social History Tobacco Use Types [...] CDT Gender Identity Female 04/28/2023 11:45 PM SERVICE PLUMBER Sexual Orientation Straight 04/28/2023 11 :45 PM SERVICE PLUMBER COVID-19 Exposure Response Date Recorded In the last month, have you been in contact with someone who was confirmed or suspected to have Coronavirus / COVID-19? No / Unsure 07/13/2020 2:34 PM SERVICE PLUMBER documented as of this encounter Miscellaneous Notes * Telephone Encounter - Willis Queen RN - 07/27/2020 9:31 AM CST Pt asking to have all her meds transferred to a differ pharmacy due to a change in location. Preferred pharmacy updated ICE PLUMBER documented in this encounter Plan of Treatment [...] documented as of this encounter Care Teams Land Checker Relationship Specialty Start Date End Date Shad Lechuga MD #[address] [address] PCP - General Family Medicine 07/20/18 Win Yusuf MD PhD [address] [place] [address] Neurosurgeon Neurological Surgery 05/13/19 Dania Rojo LSW [place] Disassembler 08/12/20 12/03/20 Dania Rojo LSW [place] Operational Intelligence Officer Disassembler 02/24/25 documented as of this encounter
--- OUTSIDE RECORDS SUMMARY | 2025-05-28 14:23 | XMS_ITS | Encounter Summary ---
Author Organization [facility] Address [address] [place] [address] Phone Care Team Providers Care Manager Process Improvement Name Role Phone Shad Lechuga MD Primary Care Provider [phone] Win Yusuf MD PhD Unavailable [phone] Dania Rojo RN ORTHOPAEDIC Unavailable Unavailab le Dania Rojo RN ORTHOPAEDIC Unavailable Unavailab le Reason for Visit * Reason Comments Medication Refill Encounter Details Date Type Department Care Team (Late st Contact Info) Description 07/02/2020 Refill [facility] [address] [place] [address] Shad Lechuga MD #[address] [address] Medication Refill Social History Tobacco Use Types [...] CDT Gender Identity Female 04/28/2023 11:45 PM GEOPHYSICAL PROSPECTING SURVEYOR Sexual Orientation Straight 04/28/2023 11 :45 PM GEOPHYSICAL PROSPECTING SURVEYOR COVID-19 Exposure Response Date Recorded In the last month, have you been in contact with someone who was confirmed or suspected to have Coronavirus / COVID-19? No / Unsure 06/24/2020 1:43 PM GEOPHYSICAL PROSPECTING SURVEYOR documented as of this encounter Miscellaneous Notes [...] Visits 3 months ago Chronic pain syndrome [facility] - [facility] APN, CNP 6 months ago Chronic pain syndrome [facility] APN, CNP 1 year ago DDD (degenerative disc disease), cervical [facility] APN, CNP 1 year ago Gastroesophageal reflux disease, esophagitis presence not specified [facility] - Shad Lopez MD 1 year ago Gynecologic malignancy (HCC) [facility] APN, CNP Upcoming Appointments Future Appointments In 1 week Shad Lechuga MD [facility] [place] [facility] SHEEP KILLER - Recent and Past Visits Recent Visits Date Type Provider Dept 03/19/20 Office Visit [facility] [place] APN, CNP [facility] 12/11/19 Office Visit [facility] [place] APN, CNP [facility] 05/13/19 Office Visit [place] [place] APN, CNP [facility] [place] Showing recent visits within past 460 days with a meds authorizing provider and meeting all other requirements Future Appointments Date Type Provider Dept 07/15/20 Appointment Shad Lechuga MD [facility] Showing future appointments within next 90 days with a meds authorizing provider and meeting all other requirements HYSICAL PROSPECTING SURVEYOR documented in this encounter Plan of Treatment [...] documented as of this encounter Care Teams Manager Process Improvement Relationship Specialty Start Date End Date Shad Lechuga MD #[address] [address] PCP - General Family Medicine 07/20/18 Win Yusuf MD PhD [address] [place] [address] Neurosurgeon Neurological Surgery 05/13/19 Dania Rojo LSW [place] Guide Cruise 08/12/20 12/03/20 Dania Rojo LSW [place] Transit Mechanic Guide Cruise 02/24/25 documented as of this encounter
--- OUTSIDE RECORDS SUMMARY | 2025-05-28 14:23 | XMS_ITS | Encounter Summary ---
Author Organization [facility] Address [address] [place] [address] Phone Care Team Providers Care Chief Underwriter Name Role Phone Shad Lechuga MD Primary Care Provider [phone] Win Yusuf MD PhD Unavailable [phone] Dania Rojo LOG CHIPPER OPERATOR Unavailable Unavailab le Dania Rojo LOG CHIPPER OPERATOR Unavailable Unavailab le Reason for Visit * Reason Comments Medication Refill Encounter Details Date Type Department Care Team (Late st Contact Info) Description 07/14/2020 Refill [facility] [address] [place] [phone] Shad Lechuga MD #[address] [address] Medication Refill Social History Tobacco Use Types [...] CDT Gender Identity Female 04/28/2023 11:45 PM VEHICLE CONTROLS ENGINEER Sexual Orientation Straight 04/28/2023 11 :45 PM VEHICLE CONTROLS ENGINEER COVID-19 Exposure Response Date Recorded In the last month, have you been in contact with someone who was confirmed or suspected to have Coronavirus / COVID-19? No / Unsure 07/13/2020 2:34 PM VEHICLE CONTROLS ENGINEER documented as of this encounter Miscellaneous Notes [...] Visits 3 months ago Chronic pain syndrome [facility] - [facility] APN, CNP 7 months ago Chronic pain syndrome [facility] APN, CNP 1 year ago DDD (degenerative disc disease), cervical [facility] APN, CNP 1 year ago Gastroesophageal reflux disease, esophagitis presence not specified [facility] - Shad Lopez MD 1 year ago Gynecologic malignancy (HCC) [facility] APN, CNP Upcoming Appointments Future Appointments In 3 weeks [facility] [place] APN, CNP [facility] - [place] ETL SOFTWARE ENGINEER - Recent and Past Visits Recent Visits Date Type Provider Dept 03/19/20 Office Visit [facility] APN, CNP [facility] 12/11/19 Office Visit [facility] [place] APN, CNP [facility] 05/13/19 Office Visit [facility] [place] APN, DMITRIY [facility] Showing recent visits within past 460 days with a meds authorizing provider and meeting all other requirements Future Appointments Date Type Provider Dept 08/04/20 Appointment [facility] [place] APN, DMITRIY [facility] Showing future appointments within next 90 days with a meds authorizing provider and meeting all other requirements CLE CONTROLS ENGINEER documented in this encounter Plan of Treatment [...] documented as of this encounter Care Teams Chief Underwriter Relationship Specialty Start Date End Date Shad Lechuga MD #[address] [address] PCP - General Family Medicine 07/20/18 Win Yusuf MD PhD [address] [place] [address] Neurosurgeon Neurological Surgery 05/13/19 Dania oRjo LSW [place] Large Animal Husbandry Technician 08/12/20 12/03/20 Dania Rojo LSW [place] Blogs Manager Large Animal Husbandry Technician 02/24/25 documented as of this encounter
--- NOTE | 2025-05-28 14:25 | PM.IMHP2 ---
H&P: HPI History of Present Illness Date/Time: 05/28/25 14:25 Chief Complaint: Confusion, Weakness Narrative: 54 y/o F with PMH of recent CVA (05/14 - left MCA M1 occlusion with partial occlusion, left MCA M2 segment read as sub occlusive thrombosis vs collateral flow. 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 The patient presents here on 05/28 via EMS from [facility] for further evaluation of confusion and increased weakness. HPI obtained through patient report and chart review. She is currently at [facility] due to a recent stroke. She was found down on 05/14 by her family and was taken to [facility]. NIH was 9, case reviewed by neurology at [facility] who recommended no TNK at that time. CTA unable to be performed due to significant history of allergy to contrast. She was then transferred with premedications given so she could have a CTA upon arrival there. CTA upon arrival there showed a left MCA M1 occlusion with partial occlusion, left MCA M2 segment read as sub occlusive thrombosis vs collateral flow. 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 No significant stenosis involving proximal ICAs. Patent carotid and vertebral arteries throughout the course. Mild pulmonary emphysema. Now has residual right-sided weakness, facial droop, and aphasia. She was placed on high-intensity statin, Plavix, and Aspirin. Then discharged to [facility] on 05/25. Here today (05/28) for worsening confusion and increased weakness. She reports her right-sided weakness is virtually unchanged. However she feels she is having worsening memory issues, increased confusion, and worsening slurred speech today. Of note, she does follow with a neurologist in [place] and is currently being worked up for early dementia. Later during her evaluation in the emergency department she reports she feels she is back to her baseline and no longer experiencing any of the aforementioned symptoms. Initial VS at presentation: 97.5? F, HR 58, R 20, 105/72, and 97% on RA. ED workup showed: No leukocytosis, no anemia, normal coags, sodium 136, no significant electrolyte derangements, creatinine 0.8 and GFR >60 home initial troponin negative, and UA suspicious for UTI. Viral PCR negative. Head CT showed infarct of the left basal ganglia, probably subacute chronic, otherwise no acute intracranial abnormality. EKG showed sinus bradycardia, rate 58. Review of Systems Review of Systems: All systems reviewed & are unremarkable except as noted in HPI and below [facility] Past Medical History Medical History (Updated 05/28/25 @ 15:04 by Erin Germain APRN) Raynaud's phenomenon Rheumatoid arthritis Peripheral neuropathy CAD (coronary artery disease) Hepatitis C COPD (chronic obstructive pulmonary disease) HLD (hyperlipidemia) PTSD (post-traumatic stress disorder) Bipolar disorder Anxiety HTN (hypertension) Seizures CVA (cerebral vascular accident) 05/14: left MCA M1 occlusion with partial occlusion, left MCA M2 segment read as sub occlusive thrombosis vs collateral flow. 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 No significant stenosis involving proximal ICAs Surgical History Surgical History (Updated 05/28/25 @ 14:45 by Erin Germain APRN) History of lumbar fusion History of heart artery stent Family History Family History (Updated 05/28/25 @ 15:30 by Myrna Frazier RN) Mother Cerebrovascular accident Father Hypertension Sibling Cancer Social History Social History Smoking packs per day: 1 Smoking cigarettes per day: 20.0 Years smoked: 30 Smoking pack-years: 30.00 Smoking status: Former smoker Tobacco type: cigarettes Second hand tobacco smoke exposure: Yes Smoking end date: 05/23/25 Alcohol intake: former Substance use: never Substance use type: does not use, former substance user, crack/cocaine, heroin and amphetamines Lack of Transportation: No Lack of Food: Never True Current Housing: I Have Housing Concerned About Future Housing: No Difficulty Paying Gas/Electric Bills: No Difficulty Paying for Meds: YES Currently Unemployed: No Education: High School Diploma/GED Difficulty w/ Childcare or Family Care: No Spiritual care concerns: No Meds Home Medications and Allergies Home Medications ?Medication ?Instructions ?Recorded ?Confirmed ?Type atorvastatin 40 mg tablet 40 mg PO DAILY 04/21/22 05/28/25 History buspirone 10 mg tablet 10 mg PO BID 04/21/22 05/28/25 History clopidogrel 75 mg tablet 75 mg PO DAILY 04/21/22 05/28/25 History famotidine 20 mg tablet 20 mg PO BID 04/21/22 05/28/25 History fluticasone propionate 50 50 mcg intranasal BID PRN nasal 04/21/22 05/28/25 History mcg/actuation nasal congestion spray,suspension olanzapine 10 mg tablet 10 mg PO BID 04/21/22 05/28/25 History sertraline 100 mg tablet 50 mg PO DAILY 04/21/22 05/28/25 History venlafaxine 150 mg 150 mg PO DAILY 04/21/22 05/28/25 History capsule,extended release 24 hr albuterol sulfate 90 mcg/actuation 2 puff inhalation BID PRN 05/24/25 05/28/25 History aerosol inhaler (Ventolin HFA) shortness of breath or wheezing docusate sodium 250 mg capsule 250 mg PO BID 05/24/25 05/28/25 History hydrocodone 5 mg-acetaminophen 325 1 tablet PO Q4H PRN pain 05/24/25 05/28/25 History mg tablet tizanidine 4 mg tablet 4 mg PO BID PRN muscle spasticity 05/24/25 05/28/25 History trazodone 50 mg tablet 50 mg PO HS PRN sleep 05/24/25 05/28/25 History aspirin 81 mg tablet,delayed 81 mg PO DAILY 05/26/25 05/28/25 History release fluticasone propionate 50 1 spray intranasal BID PRN nasal 05/28/25 05/28/25 History mcg/actuation nasal congestion spray,suspension midodrine 5 mg tablet 5 mg PO TID 05/28/25 05/28/25 History tiotropium bromide 2.5 2 puff inhalation DAILY 05/28/25 05/28/25 History mcg/actuation mist for inhalation Allergies Allergy/AdvReac Type Severity Reaction Status Date / Time gabapentin Allergy Intermediate SEIZURES Verified 05/28/25 15:08 Penicillins Allergy Mild Unknown Verified 05/28/25 15:08 Iodine and Iodide Containing Allergy Difficulty Verified 05/28/25 15:08 Produc Breathing Vital Signs Vital Signs - 24 hr 05/28/25 11:53 05/28/25 11:54 05/28/25 12:00 Temperature Pulse Rate 58 L 59 L 59 L Respiratory Rate 20 18 14 Blood Pressure 105/72 Pulse Oximetry 97 97 97 Oxygen Delivery 05/28/25 12:01 05/28/25 12:02 05/28/25 12:09 Temperature 97.5 F L Pulse Rate 59 L 59 L 57 L Respiratory Rate 15 16 16 Blood Pressure 105/69 105/69 Pulse Oximetry 97 97 Oxygen Delivery Room Air 05/28/25 12:15 05/28/25 12:36 05/28/25 13:16 Temperature Pulse Rate 57 L 61 58 L Respiratory Rate 16 16 14 Blood Pressure 105/69 Pulse Oximetry 97 99 Oxygen Delivery 05/28/25 13:33 05/28/25 13:45 05/28/25 14:03 Temperature Pulse Rate 60 62 59 L Respiratory Rate 12 16 15 Blood Pressure Pulse Oximetry 98 99 98 Oxygen Delivery 05/28/25 14:04 Temperature Pulse Rate 61 Respiratory Rate 14 Blood Pressure 102/78 Pulse Oximetry 99 Oxygen Delivery Exam Const: General: comfortable and no acute distress Other: , female, nontoxic appearance HENMT: Face/Nose/Sinus: Normal nares present Mouth: Yes moist mucous membranes Eyes: General: appearance normal, both eyes and all related structures Sclera: sclerae normal Pupils: Equal, round and reactive pupils present EOM: EOMs intact bilaterally Resp: Effort & Inspection: normal respiratory effort Auscultation: clear to auscultation bilaterally Cardio: Rate: regular rate Rhythm: regular rhythm Other: S1-S2 present without murmur, rub, ectopy GI: Other: Abdomen soft, nondistended, nontender. Normoactive bowel sounds in all quadrants. Skin: General skin exam: normal color and no rashes or lesions noted Wounds: no wounds Neuro: Other: Patient alert and orientated to self, situation, year. Initially reported she was Brandin, however was able to correct. Mild dysarthria. Drift in the right upper extremity and very weak [employer] [place]. 5+ in the left upper extremity and left lower extremity. 3+ in the right lower extremity. No sensory deficits. Extrem: General: normal to inspection Psych: Mental Status: mental status grossly normal Affect: normal affect Other: Good to fair insight and judgment, pleasant Results Labs Labs: Short CBC 05/28/25 Range/Units 12:11 WBC 7.9 (4.5-10.0) K/mm3 Hgb 12.9 (12.0-15.0) g/dL Hct 38.3 (37.0-47.0) % Plt Count 195 (150-375) k/mm3 BMP 05/28/25 12:11 Sodium 136 L Potassium 4.2 Chloride 106 Carbon Dioxide 24 BUN 25 H D Creatinine 0.80 Glucose 92 Calcium 9.2 Cardiac Enzymes 05/28/25 Range/Units 12:11 Troponin I < 0.012 (0.000-0.034) ng/mL Liver Function 05/28/25 Range/Units 12:11 Total Bilirubin 0.6 (0.2-1.3) mg/dL AST 21 (14-36) U/L ALT 17 (6-35) U/L Alkaline Phosphatase 88 (38-126) U/L Albumin 3.6 (3.5-5.1) g/dL Urine 05/28/25 Range/Units 12:44 Urine Color Yellow (Yellow) Urine Appearance Cloudy H (Clear) Urine pH 6.0 (5.0-9.0) Ur Specific [place] 1.013 (1.001-1.035) Urine Protein Negative (Negative) mg/dL Urine Glucose (UA) Negative (Negative) mg/dL Quality VTE Prophylaxis VTE prophylaxis: mechanical ordered Assessment and Plan Assessment and plan (1) AMS (altered mental status): Qualifiers: Altered mental status type: disorientation Qualified Code(s): R41.0 - Disorientation, unspecified Code(s): R41.82 - Altered mental status, unspecified Status: Acute Assessment and Plan: Here with worsening slurred speech, increased confusion, and mild memory loss. Recent history of CVA on 05/14/2025. Residual deficits of aphasia, right-sided weakness, and facial droop. Treated at [facility] in [place]. [facility]. Since arrival the patient feels she is back to her baseline. She reported no change upon arrival to her right-sided weakness. UA concerning for UTI. TIA versus stroke recrudescence due to UTI. - start broad-spectrum antibiotics for UTI - neurology consulted - MR brain without contrast due to contrast allergy - neuro checks q.4 - telemetry monitoring (2) CVA (cerebral vascular accident): Qualifiers: CVA mechanism: thrombosis Precerebral and cerebral artery: unspecified cerebral artery Qualified Code(s): I63.30 - Cerebral infarction due to thrombosis of unspecified cerebral artery Code(s): I63.9 - Cerebral infarction, unspecified Status: Chronic Assessment and Plan: She was found down on 05/14 by her family and was taken to [facility]. NIH was 9, case reviewed by neurology at [facility] who recommended no TNK at that time. CTA unable to be performed due to significant history of allergy to contrast. She was then transferred with premedications given so she could have a CTA upon arrival there. CTA upon arrival there showed a left MCA M1 occlusion with partial occlusion, left MCA M2 segment read as sub occlusive thrombosis vs collateral flow. 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 No significant stenosis involving proximal ICAs. Patent carotid and vertebral arteries throughout the course. Mild pulmonary emphysema. Now has residual right-sided weakness, facial droop, and aphasia. She was placed on high-intensity statin, Plavix, and Aspirin. Then discharged to [facility] on 05/25. - continue aspirin, Plavix, statin (3) Urinary tract infection: Qualifiers: Hematuria presence: without hematuria Urinary tract infection type: acute cystitis Qualified Code(s): N30.00 - Acute cystitis without hematuria Code(s): N39.0 - Urinary tract infection, site not specified Status: Acute Assessment and Plan: - UA: Cloudy, positive nitrates, 3+ leuk esterase, 51-100 WBC, 4+ bacteria with no epithelial cells. - UC pending - previous micro reviewed, E coli in 2022 that was pansensitive - started on Levaquin due to penicillin allergy on 05/28, continued inpatient - IV fluids: 100 mL/hr x1L (4) HTN (hypertension): Qualifiers: Hypertension type: primary hypertension Qualified Code(s): I10 - Essential (primary) hypertension Code(s): I10 - Essential (primary) hypertension Status: Resolved Assessment and Plan: - chronic, currently 103/72, resolved. - not currently on antihypertensives. Now on midodrine t.i.d.. - monitor (5) Seizures: Code(s): R56.9 - Unspecified convulsions Status: Chronic Assessment and Plan: History of seizures disorder. Last seizure 1 year ago. Not currently on any anti epileptic medications. Follows with Neurology in [place]. (6) Schizophrenia: Qualifiers: Schizophrenia type: unspecified Qualified Code(s): F20.9 - Schizophrenia, unspecified Code(s): F20.9 - Schizophrenia, unspecified Status: Chronic Assessment and Plan: History of anxiety, bipolar disorder, PTSD, and schizophrenia. Mood currently stable. - continue home medications: BuSpar 10 mg b.i.d., Zyprexa 10 mg b.i.d., sertraline 50 mg daily, Effexor XR 150 mg daily (7) HLD (hyperlipidemia): Qualifiers: Hyperlipidemia type: unspecified Qualified Code(s): E78.5 - Hyperlipidemia, unspecified Code(s): E78.5 - Hyperlipidemia, unspecified Status: Chronic Assessment and Plan: - continue home medication: Lipitor 40 mg daily (8) COPD (chronic obstructive pulmonary disease): Qualifiers: COPD type: emphysema Emphysema type: unspecified Qualified Code(s): J43.9 - Emphysema, unspecified Code(s): J44.9 - Chronic obstructive pulmonary disease, unspecified Status: Chronic Assessment and Plan: No current evidence of exacerbation. - albuterol b.i.d. p.r.n. Plan Diet: Heart healthy GI Prophylaxis: N/a DVT Prophylaxis: SCDs IV fluids: LR 100 mL/hr Lines/Tubes: pIV Code Status: Full code Prior Studies I have reviewed the following patient records and this information was taken into consideration when formulating the assessment and plan.: previous labs, previous ER visits, previous hospitalizations and previous clinic visits Time Spent with Patient Time with patient: less than 45 minutes Hospitalist MIPS Advance Care Plan I have confirmed that the patient's Advanced Care Plan is present, code status is documented, or surrogate decision maker is listed in patient medical record.: Yes Medication Reconciliation I have utilized all available resources to obtain, update and review the patients current medications (includes all prescriptions, OTC, herbals, cannabis, and nutritional supplements).: Yes
[2025-05-28] MEDS: levoFLOXacin 750 MG/D5W 150 ML 750 MG/150 ML BAG 100 MG IVPB (14:28)
--- NOTE | 2025-05-28 14:40 | ADMGEN ---
This patient, Misty Pinto, was admitted to Medical Room 244-. Patient/family oriented to hospital policies and general routines including ID bracelet, bed and alarms, visiting hours, pain management, procedures, bathroom and other care routines, personal items, smoking policy, room service/diet, and visiting hours. Information on how to activate the Rapid Response Team has been discussed. Patient/Family are encouraged to report perceived risks to care and to ask questions if they do not understand what they are told or what they should do.
[2025-05-28] MEDS: LACTATED RINGERS 1,000 ML 100 ML IV CONT (16:01)
[2025-05-28] MEDS: MIDODRINE HCL 2.5 MG TABLET 5 MG PO (16:05)
[2025-05-28] MEDS: FAMOTIDINE 20 MG TABLET PO (20:46)
[2025-05-28] MEDS: HYDROcodone/acetaminophen (*CRX) 5-325 MG TABLET 1 TAB PO (20:47)
[2025-05-29] VITALS (9 sets, daily range): BP systolic 95–110; BP diastolic 58–60; PULSE 62–78; RESP 16–18; TEMP 36.4–36.8; O2SAT 96
[2025-05-29 05:49] LABS: Hematocrit 36.6 % (37.0-47.0); Hemoglobin 12.0 g/dL (12.0-15.0); Immature Granulocyte Percent A 0.2 % (0-0.5); Immature Platelet Fraction Pct 6.5 % (0.9-11.2); Lymphocytes Absolute Auto 1.67 K/mm3 (0.9-3.2); Mean Corpuscular HGB Conc 32.8 g/dl (32-36); Mean Corpuscular Hemoglobin 30.2 pg (26-34); Mean Corpuscular Volume 92.0 fl (80-100); Nucleated Red Blood Cells Absolute Auto 0.000 K/mm3 (0.0-0.012); Nucleated Red Blood Cells Perc 0.0 % (0.0-0.2); Platelet Count Result 169 k/mm3 (150-375); Red Blood Count 3.98 M/mm3 (4.2-5.4); White Blood Count 6.2 K/mm3 (4.5-10.0)
[2025-05-29 06:07] LABS: Anion Gap 4 mmol/L (4-12); Blood Urea Nitrogen 18 mg/dL (7-17); Calcium 8.9 mg/dL (8.4-10.2); Carbon Dioxide 23 mmol/L (22-30); Chloride 111 mmol/L (98-107); Estimated CRCL calculation 75 ml/min; Estimated Glomerular Filt Rate > 60; Glucose 105 mg/dL (65-110); Potassium 3.9 mmol/L (3.4-5.0); Sodium 138 mmol/L (137-145)
[2025-05-29] MEDS: ATORVASTATIN 40 MG TABLET PO (08:25)
[2025-05-29] MEDS: VENLAFAXINE HCL XR 75 MG CAP.ER.24H 150 MG PO (08:25)
[2025-05-29] MEDS: SERTRALINE HCL 50 MG TABLET PO (08:26)
[2025-05-29] MEDS: FAMOTIDINE 20 MG TABLET PO ×2 (08:26→20:21)
[2025-05-29] MEDS: ASPIRIN 81 MG ENTERIC TABLET PO (08:26)
[2025-05-29] MEDS: CLOPIDOGREL BISULFATE 75 MG TABLET PO (08:26)
[2025-05-29] MEDS: HYDROcodone/acetaminophen (*CRX) 5-325 MG TABLET 1 TAB PO ×3 (08:26→20:21)
[2025-05-29] MEDS: MIDODRINE HCL 2.5 MG TABLET 5 MG PO ×3 (08:26→17:00)
[2025-05-29] MEDS: UMECLIDINIUM BROMIDE 62.5 MCG ELLIPTA 1 PUFF INHALATION (08:56)
[2025-05-29] MEDS: levoFLOXacin 750 MG/D5W 150 ML 750 MG/150 ML BAG 100 MG IVPB (13:36)
--- NOTE | 2025-05-29 13:42 | PM.IMPN2 ---
Assessment and Plan Assessment and Plan (1) AMS (altered mental status): Qualifiers: Altered mental status type: disorientation Qualified Code(s): R41.0 - Disorientation, unspecified Code(s): R41.82 - Altered mental status, unspecified Status: Acute Assessment and Plan: Here with worsening slurred speech, increased confusion, and mild memory loss. Recent history of CVA on 05/14/2025. Residual deficits of aphasia, right-sided weakness, and facial droop. Treated at [facility] in [place]. He currently at [facility] for therapies. Since arrival the patient feels she is back to her baseline. She reported no change upon arrival to her right-sided weakness. UA concerning for UTI. TIA versus stroke recrudescence due to UTI. - start broad-spectrum antibiotics for UTI - neurology consulted - MR brain without contrast due to contrast allergy - neuro checks q.4 - telemetry monitoring MRI pending (2) CVA (cerebral vascular accident): Qualifiers: CVA mechanism: thrombosis Precerebral and cerebral artery: unspecified cerebral artery Qualified Code(s): I63.30 - Cerebral infarction due to thrombosis of unspecified cerebral artery Code(s): I63.9 - Cerebral infarction, unspecified Status: Chronic Assessment and Plan: She was found down on 05/14 by her family and was taken to [facility]. NIH was 9, case reviewed by neurology at [facility] who recommended no TNK at that time. CTA unable to be performed due to significant history of allergy to contrast. She was then transferred with premedications given so she could have a CTA upon arrival there. CTA upon arrival there showed a left MCA M1 occlusion with partial occlusion, left MCA M2 segment read as sub occlusive thrombosis vs collateral flow. 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 No significant stenosis involving proximal ICAs. Patent carotid and vertebral arteries throughout the course. Mild pulmonary emphysema. Now has residual right-sided weakness, facial droop, and aphasia. She was placed on high-intensity statin, Plavix, and Aspirin. Then discharged to [facility] on 05/25. - continue aspirin, Plavix, statin - neuro check per protocol - at her baseline now (3) Urinary tract infection: Qualifiers: Hematuria presence: without hematuria Urinary tract infection type: acute cystitis Qualified Code(s): N30.00 - Acute cystitis without hematuria Code(s): N39.0 - Urinary tract infection, site not specified Status: Acute Assessment and Plan: - UA: Cloudy, positive nitrates, 3+ leuk esterase, 51-100 WBC, 4+ bacteria with no epithelial cells. - UC pending - previous micro reviewed, E coli in 2022 that was pansensitive - started on Levaquin due to penicillin allergy on 05/28, continued inpatient - IV fluids: 100 mL/hr x1L ------ follow urine c/s (4) HTN (hypertension): Qualifiers: Hypertension type: primary hypertension Qualified Code(s): I10 - Essential (primary) hypertension Code(s): I10 - Essential (primary) hypertension Status: Resolved Assessment and Plan: - chronic, currently 103/72, resolved. - not currently on antihypertensives. Now on midodrine t.i.d.. - monitor (5) Seizures: Code(s): R56.9 - Unspecified convulsions Status: Chronic Assessment and Plan: History of seizures disorder. Last seizure 1 year ago. Not currently on any anti epileptic medications. Follows with Neurology in [place]. (6) Schizophrenia: Qualifiers: Schizophrenia type: unspecified Qualified Code(s): F20.9 - Schizophrenia, unspecified Code(s): F20.9 - Schizophrenia, unspecified Status: Chronic Assessment and Plan: History of anxiety, bipolar disorder, PTSD, and schizophrenia. Mood currently stable. - continue home medications: BuSpar 10 mg b.i.d., Zyprexa 10 mg b.i.d., sertraline 50 mg daily, Effexor XR 150 mg daily (7) HLD (hyperlipidemia): Qualifiers: Hyperlipidemia type: unspecified Qualified Code(s): E78.5 - Hyperlipidemia, unspecified Code(s): E78.5 - Hyperlipidemia, unspecified Status: Chronic Assessment and Plan: - continue home medication: Lipitor 40 mg daily (8) COPD (chronic obstructive pulmonary disease): Qualifiers: COPD type: emphysema Emphysema type: unspecified Qualified Code(s): J43.9 - Emphysema, unspecified Code(s): J44.9 - Chronic obstructive pulmonary disease, unspecified Status: Chronic Assessment and Plan: No current evidence of exacerbation. - albuterol b.i.d. p.r.n. Plan Diet: Heart healthy GI Prophylaxis: N/a DVT Prophylaxis: SCDs IV fluids: LR 100 mL/hr Lines/Tubes: pIV Code Status: Full code Medical Record Review I have reviewed the following patient records and this information was taken into consideration when formulating the assessment and plan.: previous labs Time Spent With Patient Time with patient: 25 - 35 minutes Subjective Date/time seen: 05/29/25 13:42 Interval history: 54 y/o F with PMH of recent CVA (05/14 - left MCA M1 occlusion with partial occlusion, left MCA M2 segment read as sub occlusive thrombosis vs collateral flow. 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 The patient presents here on 05/28 via EMS from [facility] for further evaluation of confusion and increased weakness. HPI obtained through patient report and chart review. She is currently at [facility] due to a recent stroke. She was found down on 05/14 by her family and was taken to [facility]. NIH was 9, case reviewed by neurology at [facility] who recommended no TNK at that time. CTA unable to be performed due to significant history of allergy to contrast. She was then transferred with premedications given so she could have a CTA upon arrival there. CTA upon arrival there showed a left MCA M1 occlusion with partial occlusion, left MCA M2 segment read as sub occlusive thrombosis vs collateral flow. 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 No significant stenosis involving proximal ICAs. Patent carotid and vertebral arteries throughout the course. Mild pulmonary emphysema. Now has residual right-sided weakness, facial droop, and aphasia. She was placed on high-intensity statin, Plavix, and Aspirin. Then discharged to [facility] on 05/25. Here today (05/28) for worsening confusion and increased weakness. She reports her right-sided weakness is virtually unchanged. However she feels she is having worsening memory issues, increased confusion, and worsening slurred speech today. Of note, she does follow with a neurologist in [place] and is currently being worked up for early dementia. Later during her evaluation in the emergency department she reports she feels she is back to her baseline and no longer experiencing any of the aforementioned symptoms. Initial VS at presentation: 97.5? F, HR 58, R 20, 105/72, and 97% on RA. ED workup showed: No leukocytosis, no anemia, normal coags, sodium 136, no significant electrolyte derangements, creatinine 0.8 and GFR >60 home initial troponin negative, and UA suspicious for UTI. Viral PCR negative. Head CT showed infarct of the left basal ganglia, probably subacute chronic, otherwise no acute intracranial abnormality. EKG showed sinus bradycardia, rate 58. Pt is seen and examined. She is c/o rt shoulder pain. Neurology was consulted. MRI ordered. rt arm weakness Review of Systems Review of Systems: All systems reviewed & are unremarkable except as noted in HPI and below Exam Const: General: comfortable and no acute distress Other: , female, nontoxic appearance HENMT: Face/Nose/Sinus: Normal nares present Mouth: Yes moist mucous membranes Eyes: General: appearance normal, both eyes and all related structures Sclera: sclerae normal Pupils: Equal, round and reactive pupils present EOM: EOMs intact bilaterally Resp: Effort & Inspection: normal respiratory effort Auscultation: clear to auscultation bilaterally Cardio: Rate: regular rate Rhythm: regular rhythm Other: S1-S2 present without murmur, rub, ectopy GI: Other: Abdomen soft, nondistended, nontender. Normoactive bowel sounds in all quadrants. Skin: General skin exam: normal color and no rashes or lesions noted Wounds: no wounds Neuro: Cranial nerves: Yes Equal, round and reactive pupils present Other: Patient alert and orientated to self, situation, year. Initially reported she was [place], however was able to correct. Mild dysarthria. Drift in the right upper extremity and very weak copy clerk. 5+ in the left upper extremity and left lower extremity. 3+ in the right lower extremity. No sensory deficits. Extrem: General: normal to inspection Psych: Mental Status: mental status grossly normal Affect: normal affect Other: Good to fair insight and judgment, pleasant Objective Data Vital Signs Vital Signs: Vital Signs - 24 hr 05/28/25 13:45 05/28/25 14:03 05/28/25 14:04 Temperature Pulse Rate 62 59 L 61 Respiratory Rate 16 15 14 Blood Pressure 102/78 Pulse Oximetry 99 98 99 Oxygen Delivery 05/28/25 14:30 05/28/25 15:00 05/28/25 16:00 Temperature Pulse Rate 61 72 Respiratory Rate 14 Blood Pressure 103/72 Pulse Oximetry 99 Oxygen Delivery Room Air 05/28/25 20:00 05/28/25 20:00 05/28/25 21:43 Temperature 97.8 F Pulse Rate 73 77 Respiratory Rate 16 Blood Pressure 98/60 L Pulse Oximetry 96 Oxygen Delivery Room Air 05/28/25 22:42 05/29/25 00:00 05/29/25 04:00 Temperature Pulse Rate 78 74 Respiratory Rate Blood Pressure Pulse Oximetry 96 Oxygen Delivery Room Air 05/29/25 05:50 05/29/25 07:45 05/29/25 08:00 Temperature 98.3 F Pulse Rate 68 71 Respiratory Rate 16 Blood Pressure 95/58 L Pulse Oximetry 96 Oxygen Delivery Room Air 05/29/25 12:00 Temperature Pulse Rate 78 Respiratory Rate Blood Pressure Pulse Oximetry Oxygen Delivery Intake/Output Intake/Output: Intake & Output 05/26/25 05/27/25 05/28/25 05/29/25 23:59 23:59 23:59 23:59 Intake Total 480 1740 Output Total 700 Balance -220 1740 Meds/Results Medications: Active Medications Generic Name Dose Route Start Last Admin Trade Name Freq PRN Reason Stop Dose Admin Acetaminophen 650 mg 05/28/25 15:04 Acetaminophen 325 Mg Tablet PO Q6H PRN Mild Pain (1-3) or Fever Hydrocodone Bitart/Acetaminophen 1 tab 05/28/25 14:56 05/29/25 13:37 Hydrocodone/Acetaminophen (*Crx) 5-325 Mg Tablet PO 1 tab Q4H PRN Administration Pain 4-10 Albuterol 2 puff 05/28/25 14:56 Albuterol Sulfate (*Sp) Aerosol 1 Puff INHALATION BID PRN Shortness Of Breath Or Wheezing Aspirin 81 mg 05/29/25 09:00 05/29/25 08:26 Aspirin 81 Mg Enteric Tablet PO 81 mg DAILY BEENA Administration Atorvastatin Calcium 40 mg 05/29/25 09:00 05/29/25 08:25 Atorvastatin 40 Mg Tablet PO 40 mg DAILY BEENA Administration Buspirone HCl 10 mg 05/28/25 21:00 05/29/25 08:26 Buspirone Hcl 10 Mg Tablet PO 10 mg Q12HR BEENA Administration Clopidogrel Bisulfate 75 mg 05/29/25 09:00 05/29/25 08:26 Clopidogrel Bisulfate 75 Mg Tablet PO 75 mg DAILY BEENA Administration Docusate Sodium 250 mg 05/28/25 17:00 05/29/25 08:37 Docusate Sodium Liq 100 Mg/10 Ml Udc PO Not Given BID BEENA Famotidine 20 mg 05/28/25 21:00 05/29/25 08:26 Famotidine 20 Mg Tablet PO 20 mg Q12HR BEENA Administration Fluticasone Propionate 1 spray 05/28/25 15:03 Fluticasone Propionate 0.05% Na Spr 16 Gm Btl (*Bkc) NASAL Q12H PRN Nasal Congestion Levofloxacin/Dextrose 750 mg in 150 mls @ 100 mls/hr 05/29/25 14:00 05/29/25 13:36 Levaquin 750 Mg/D5w 150 Ml IVPB 100 mls/hr Q24H BEENA Administration Midodrine 5 mg 05/28/25 17:00 05/29/25 13:35 Midodrine Hcl 2.5 Mg Tablet PO 5 mg TID BEENA Administration Olanzapine 10 mg 05/28/25 21:00 05/29/25 08:25 Olanzapine 5 Mg Tablet PO 10 mg Q12HR BEENA Administration Sertraline HCl 50 mg 05/29/25 09:00 05/29/25 08:26 Sertraline Hcl 50 Mg Tablet PO 50 mg DAILY BEENA Administration Tizanidine HCl 4 mg 05/28/25 14:56 Tizanidine Hcl 4 Mg Tablet PO Q12H PRN Muscle Spasticity Trazodone HCl 50 mg 05/28/25 14:56 Trazodone Hcl 50 Mg Tablet PO HS PRN Sleep Umeclidinium [place] 1 puff 05/29/25 08:00 05/29/25 08:56 Umeclidinium [place] 62.5 Mcg Ellipta INHALATION 1 puff DAILYRT BEENA Administration Venlafaxine HCl 150 mg 05/29/25 09:00 05/29/25 08:25 Venlafaxine Hcl Xr 75 Mg Cap.Er.24h PO 150 mg DAILY BEENA Administration Radiology Results: ITS Impressions Head CT 05/28/25 11:51 IMPRESSION: 1. Infarct left basal ganglia, probably subacute to chronic. 2. Otherwise no acute intracranial abnormality. Chest X-Ray 05/28/25 12:38 Impression: No acute cardiopulmonary abnormality. Labs Labs: Laboratory Results - last 24 hr 05/29/25 04:46 WBC 6.2 RBC 3.98 L Hgb 12.0 Hct 36.6 L MCV 92.0 MCH 30.2 MCHC 32.8 RDW 14.0 Plt Count 169 MPV 12.3 H Immature Gran % (Auto) 0.2 Neut % (Auto) 62.7 Lymph % (Auto) 27.1 Rush % (Auto) 6.8 Eos % (Auto) 2.6 Baso % (Auto) 0.6 Lymph # (Auto) 1.67 Rush # (Auto) 0.4 Eos # (Auto) 0.2 Baso # (Auto) 0.0 Abs Immat Gran (auto) 0.01 Absolute Neuts (auto) 3.9 Absolute Nucleated RBC 0.000 Nucleated RBC % 0.0 % Immature Plt Fraction 6.5 Sodium 138 Potassium 3.9 Chloride 111 H Carbon Dioxide 23 Anion Gap 4 BUN 18 H Creatinine 0.73 Estim Creat Clear Calc 75 Estimated GFR > 60 Glucose 105 Calcium 8.9 Quality VTE Prophylaxis VTE prophylaxis: mechanical ordered
--- NOTE | 2025-05-29 18:23 | WPDNEURCNPN ---
Assessment and Plan Assessment and plan (1) CVA (cerebral vascular accident): Qualifiers: CVA mechanism: thrombosis Precerebral and cerebral artery: unspecified cerebral artery Qualified Code(s): I63.30 - Cerebral infarction due to thrombosis of unspecified cerebral artery Code(s): I63.9 - Cerebral infarction, unspecified Status: Chronic (2) Schizophrenia: Qualifiers: Schizophrenia type: unspecified Qualified Code(s): F20.9 - Schizophrenia, unspecified Code(s): F20.9 - Schizophrenia, unspecified Status: Chronic (3) HTN (hypertension): Qualifiers: Hypertension type: primary hypertension Qualified Code(s): I10 - Essential (primary) hypertension Code(s): I10 - Essential (primary) hypertension Status: Resolved (4) COPD (chronic obstructive pulmonary disease): Qualifiers: COPD type: emphysema Emphysema type: unspecified Qualified Code(s): J43.9 - Emphysema, unspecified Code(s): J44.9 - Chronic obstructive pulmonary disease, unspecified Status: Chronic (5) Nicotine dependence: Code(s): F17.200 - Nicotine dependence, unspecified, uncomplicated Status: Acute (6) CAD (coronary artery disease): Code(s): I25.10 - Atherosclerotic heart disease of torres martinez coronary artery without angina pectoris Status: Inactive Plan An MRI will be helpful in identification of any extension of the stroke. In the meanwhile changes in mental status can also occur due to metabolic problems. Possible seizure could also be a consideration. However there is no eyewitness account of any seizure-like activity. In the meanwhile the patient is on aspirin 81 mg a day and Plavix 75 mg a day and atorvastatin 40 mg a day. patient also on midodrine 5 mg 3 times a day. The list of her current medications were reviewed since some of the medications such as Zyprexa and trazodone and Effexor are most likely from the psychiatrist since the patient has history of schizophrenia. According to the rehab we do note the patient was found to have a left MCA occlusion on a CT angiogram of the head and neck. MRI has revealed an acute left MCA stroke. It appears that the anticonvulsants were not started. Do not have any clear history of having had a seizure recently. Patient has not been taking any anticonvulsant prior to presentation on 05/14/2025. Consult date: 05/29/25 HPI: Misty Pinto is a 54 year old female With history of stroke with the residual speech disturbance and right-sided weakness was admitted from the [facility] to the acute hospital on account of some change in the mental status. Patient does not think that she has any increase in the weakness of the right upper limb. She has had some residual speech problem which also according to the patient has not changed very much. CT scan of brain has shown left basal ganglia infarct. Patient was taking care of at [facility] in [place] when she has a stroke earlier on 05/14/2025. Patient also history of seizure disorder the patient to uses a walker or a cane to get around. According the ER note the patient has not had any seizure for 1 year and she has not been taking the seizure medications. Patient was transferred to [facility] in [place]. A CTA not was not performed since the patient has allergy to contrast. She did not meet the criteria for antithrombotics since the last well known time was variable according to her 3 children. Review of Systems Review of Systems: All systems reviewed & are unremarkable except as noted in HPI and below PMFSH Past Medical History Medical History (Updated 05/28/25 @ 15:04 by Erin Germain APRN) Raynaud's phenomenon Rheumatoid arthritis Peripheral neuropathy CAD (coronary artery disease) Hepatitis C COPD (chronic obstructive pulmonary disease) HLD (hyperlipidemia) PTSD (post-traumatic stress disorder) Bipolar disorder Anxiety HTN (hypertension) Seizures CVA (cerebral vascular accident) 05/14: left MCA M1 occlusion with partial occlusion, left MCA M2 segment read as sub occlusive thrombosis vs collateral flow. 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 No significant stenosis involving proximal ICAs Surgical History Surgical History (Updated 05/28/25 @ 14:45 by Erin Germain APRN) History of lumbar fusion History of heart artery stent Family History Family History (Updated 05/28/25 @ 15:30 by Myrna Frazier RN) Mother Cerebrovascular accident Father Hypertension Sibling Cancer Social History Social History Smoking packs per day: 1 Smoking cigarettes per day: 20.0 Years smoked: 30 Smoking pack-years: 30.00 Smoking status: Former smoker Tobacco type: cigarettes Second hand tobacco smoke exposure: Yes Smoking end date: 05/23/25 Alcohol intake: former Substance use: never Substance use type: does not use, former substance user, crack/cocaine, heroin and amphetamines Lack of Transportation: No Lack of Food: Never True Current Housing: I Have Housing Concerned About Future Housing: No Difficulty Paying Gas/Electric Bills: No Difficulty Paying for Meds: YES Currently Unemployed: No Education: High School Diploma/GED Difficulty w/ Childcare or Family Care: No Spiritual care concerns: No Meds Home Medications and Allergies Home Medications ?Medication ?Instructions ?Recorded ?Confirmed ?Type atorvastatin 40 mg tablet 40 mg PO DAILY 04/21/22 05/28/25 History buspirone 10 mg tablet 10 mg PO BID 04/21/22 05/28/25 History clopidogrel 75 mg tablet 75 mg PO DAILY 04/21/22 05/28/25 History famotidine 20 mg tablet 20 mg PO BID 04/21/22 05/28/25 History fluticasone propionate 50 50 mcg intranasal BID PRN nasal 04/21/22 05/28/25 History mcg/actuation nasal congestion spray,suspension olanzapine 10 mg tablet 10 mg PO BID 04/21/22 05/28/25 History sertraline 100 mg tablet 50 mg PO DAILY 04/21/22 05/28/25 History venlafaxine 150 mg 150 mg PO DAILY 04/21/22 05/28/25 History capsule,extended release 24 hr albuterol sulfate 90 mcg/actuation 2 puff inhalation BID PRN 05/24/25 05/28/25 History aerosol inhaler (Ventolin HFA) shortness of breath or wheezing docusate sodium 250 mg capsule 250 mg PO BID 05/24/25 05/28/25 History hydrocodone 5 mg-acetaminophen 325 1 tablet PO Q4H PRN pain 05/24/25 05/28/25 History mg tablet tizanidine 4 mg tablet 4 mg PO BID PRN muscle spasticity 05/24/25 05/28/25 History trazodone 50 mg tablet 50 mg PO HS PRN sleep 05/24/25 05/28/25 History aspirin 81 mg tablet,delayed 81 mg PO DAILY 05/26/25 05/28/25 History release fluticasone propionate 50 1 spray intranasal BID PRN nasal 05/28/25 05/28/25 History mcg/actuation nasal congestion spray,suspension midodrine 5 mg tablet 5 mg PO TID 05/28/25 05/28/25 History tiotropium bromide 2.5 2 puff inhalation DAILY 05/28/25 05/28/25 History mcg/actuation mist for inhalation Allergies Allergy/AdvReac Type Severity Reaction Status Date / Time gabapentin Allergy Intermediate SEIZURES Verified 05/28/25 15:08 Penicillins Allergy Mild Unknown Verified 05/28/25 15:08 Iodine and Iodide Containing Allergy Difficulty Verified 05/28/25 15:08 Produc Breathing Vital Signs Vital Signs - 24 hr 05/28/25 20:00 05/28/25 20:00 05/28/25 21:43 Temperature 97.8 F Pulse Rate 73 77 Respiratory Rate 16 Blood Pressure 98/60 L Pulse Oximetry 96 Oxygen Delivery Room Air 05/28/25 22:42 05/29/25 00:00 05/29/25 04:00 Temperature Pulse Rate 78 74 Respiratory Rate Blood Pressure Pulse Oximetry 96 Oxygen Delivery Room Air 05/29/25 05:50 05/29/25 07:45 05/29/25 08:00 Temperature 98.3 F Pulse Rate 68 71 Respiratory Rate 16 Blood Pressure 95/58 L Pulse Oximetry 96 Oxygen Delivery Room Air 05/29/25 12:00 05/29/25 13:51 05/29/25 14:00 Temperature 97.5 F L Pulse Rate 78 67 Respiratory Rate 18 Blood Pressure 99/59 L Pulse Oximetry 96 Oxygen Delivery Room Air 05/29/25 16:00 Temperature Pulse Rate 71 Respiratory Rate Blood Pressure Pulse Oximetry Oxygen Delivery Exam Narrative: fully conscious alert oriented to self place and person. She appears to have mild to moderate dysarthria. She does seem to be able to follow given commands. Examination of head and neck shows mild right facial weakness and a moderate weakness of the right upper limb and mild weakness of the right lower limb power grade 4/5 in the upper and 4+ over 5 in the lower limb. Deep tendon reflexes however did not show any significant asymmetry. Sensory examination reveals some decreased sensation the right lower limb but she did not feel there was any difference in the sensation upper limb. Results Labs 05/29/25 04:46 05/29/25 04:46 Labs: Short CBC 05/29/25 Range/Units 04:46 WBC 6.2 (4.5-10.0) K/mm3 Hgb 12.0 (12.0-15.0) g/dL Hct 36.6 L (37.0-47.0) % Plt Count 169 (150-375) k/mm3 [facility] 05/29/25 04:46 Sodium 138 Potassium 3.9 Chloride 111 H Carbon Dioxide 23 BUN 18 H Creatinine 0.73 Glucose 105 Calcium 8.9
[2025-05-30] VITALS (11 sets, daily range): BP systolic 94–111; BP diastolic 53–62; PULSE 62–78; RESP 16–18; TEMP 36.4–36.6; O2SAT 95–99
--- NOTE | 2025-05-30 07:48 | PM.IMPN2 ---
Assessment and Plan Assessment and Plan (1) AMS (altered mental status): Qualifiers: Altered mental status type: disorientation Qualified Code(s): R41.0 - Disorientation, unspecified Code(s): R41.82 - Altered mental status, unspecified Status: Acute Assessment and Plan: Here with worsening slurred speech, increased confusion, and mild memory loss. Recent history of CVA on 05/14/2025. Residual deficits of aphasia, right-sided weakness, and facial droop. Treated at [facility] in [place]. He currently at [facility] for therapies. Since arrival the patient feels she is back to her baseline. She reported no change upon arrival to her right-sided weakness. UA concerning for UTI. TIA versus stroke recrudescence due to UTI. - start broad-spectrum antibiotics for UTI - neurology consulted - MR brain without contrast due to contrast allergy - neuro checks q.4 - telemetry monitoring MRI completed this am, read renetta (2) CVA (cerebral vascular accident): Qualifiers: CVA mechanism: thrombosis Precerebral and cerebral artery: unspecified cerebral artery Qualified Code(s): I63.30 - Cerebral infarction due to thrombosis of unspecified cerebral artery Code(s): I63.9 - Cerebral infarction, unspecified Status: Chronic Assessment and Plan: She was found down on 05/14 by her family and was taken to [facility]. NIH was 9, case reviewed by neurology at [facility] who recommended no TNK at that time. CTA unable to be performed due to significant history of allergy to contrast. She was then transferred with premedications given so she could have a CTA upon arrival there. CTA upon arrival there showed a left MCA M1 occlusion with partial occlusion, left MCA M2 segment read as sub occlusive thrombosis vs collateral flow. 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 No significant stenosis involving proximal ICAs. Patent carotid and vertebral arteries throughout the course. Mild pulmonary emphysema. Now has residual right-sided weakness, facial droop, and aphasia. She was placed on high-intensity statin, Plavix, and Aspirin. Then discharged to [facility] 05[facility]. - continue aspirin, Plavix, statin - neuro check per protocol - at her baseline now neurology consulted and following pt is alert, no new neurological concerns (3) Urinary tract infection: Qualifiers: Hematuria presence: without hematuria Urinary tract infection type: acute cystitis Qualified Code(s): N30.00 - Acute cystitis without hematuria Code(s): N39.0 - Urinary tract infection, site not specified Status: Acute Assessment and Plan: - UA: Cloudy, positive nitrates, 3+ leuk esterase, 51-100 WBC, 4+ bacteria with no epithelial cells. - UC pending - previous micro reviewed, E coli in 2022 that was pansensitive - started on Levaquin due to penicillin allergy on 05/28, continued inpatient - IV fluids: 100 mL/hr x1L ------ follow urine c/s consider downgrading to PO (4) HTN (hypertension): Qualifiers: Hypertension type: primary hypertension Qualified Code(s): I10 - Essential (primary) hypertension Code(s): I10 - Essential (primary) hypertension Status: Resolved Assessment and Plan: - chronic, currently 103/72, resolved. - not currently on antihypertensives. Now on midodrine t.i.d.. - monitor (5) Seizures: Code(s): R56.9 - Unspecified convulsions Status: Chronic Assessment and Plan: History of seizures disorder. Last seizure 1 year ago. Not currently on any anti epileptic medications. Follows with Neurology in [place]. (6) Schizophrenia: Qualifiers: Schizophrenia type: unspecified Qualified Code(s): F20.9 - Schizophrenia, unspecified Code(s): F20.9 - Schizophrenia, unspecified Status: Chronic Assessment and Plan: History of anxiety, bipolar disorder, PTSD, and schizophrenia. Mood currently stable. - continue home medications: BuSpar 10 mg b.i.d., Zyprexa 10 mg b.i.d., sertraline 50 mg daily, Effexor XR 150 mg daily (7) HLD (hyperlipidemia): Qualifiers: Hyperlipidemia type: unspecified Qualified Code(s): E78.5 - Hyperlipidemia, unspecified Code(s): E78.5 - Hyperlipidemia, unspecified Status: Chronic Assessment and Plan: - continue home medication: Lipitor 40 mg daily (8) COPD (chronic obstructive pulmonary disease): Qualifiers: COPD type: emphysema Emphysema type: unspecified Qualified Code(s): J43.9 - Emphysema, unspecified Code(s): J44.9 - Chronic obstructive pulmonary disease, unspecified Status: Chronic Assessment and Plan: No current evidence of exacerbation. - albuterol b.i.d. p.r.n. Plan Diet: Heart healthy GI Prophylaxis: N/a DVT Prophylaxis: SCDs IV fluids: LR 100 mL/hr Lines/Tubes: pIV Code Status: Full code Medical Record Review I have reviewed the following patient records and this information was taken into consideration when formulating the assessment and plan.: previous labs Time Spent With Patient Time with patient: 25 - 35 minutes Subjective Date/time seen: 05/30/25 07:48 Interval history: 54 y/o F with PMH of recent CVA (05/14 - left MCA M1 occlusion with partial occlusion, left MCA M2 segment read as sub occlusive thrombosis vs collateral flow. 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 The patient presents here on 05/28 via EMS from [facility] for further evaluation of confusion and increased weakness. HPI obtained through patient report and chart review. She is currently at [facility] due to a recent stroke. She was found down on 05/14 by her family and was taken to [facility]. NIH was 9, case reviewed by neurology at [facility] who recommended no TNK at that time. CTA unable to be performed due to significant history of allergy to contrast. She was then transferred with premedications given so she could have a CTA upon arrival there. CTA upon arrival there showed a left MCA M1 occlusion with partial occlusion, left MCA M2 segment read as sub occlusive thrombosis vs collateral flow. 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 No significant stenosis involving proximal ICAs. Patent carotid and vertebral arteries throughout the course. Mild pulmonary emphysema. Now has residual right-sided weakness, facial droop, and aphasia. She was placed on high-intensity statin, Plavix, and Aspirin. Then discharged to [facility] on 05/25. Here today (05/28) for worsening confusion and increased weakness. She reports her right-sided weakness is virtually unchanged. However she feels she is having worsening memory issues, increased confusion, and worsening slurred speech today. Of note, she does follow with a neurologist in [place] and is currently being worked up for early dementia. Later during her evaluation in the emergency department she reports she feels she is back to her baseline and no longer experiencing any of the aforementioned symptoms. Initial VS at presentation: 97.5? F, HR 58, R 20, 105/72, and 97% on RA. ED workup showed: No leukocytosis, no anemia, normal coags, sodium 136, no significant electrolyte derangements, creatinine 0.8 and GFR >60 home initial troponin negative, and UA suspicious for UTI. Viral PCR negative. Head CT showed infarct of the left basal ganglia, probably subacute chronic, otherwise no acute intracranial abnormality. EKG showed sinus bradycardia, rate 58. 05/30 Pt is seen and examined. Neurology saw pt- continue meds. NO antithrombolytic as unknown LKW. IV antibiotics for uti, BC pending Review of Systems Review of Systems: All systems reviewed & are unremarkable except as noted in HPI and below Exam Const: General: comfortable and no acute distress Other: , female, nontoxic appearance HENMT: Face/Nose/Sinus: Normal nares present Mouth: Yes moist mucous membranes Eyes: General: appearance normal, both eyes and all related structures Sclera: sclerae normal Pupils: Equal, round and reactive pupils present EOM: EOMs intact bilaterally Resp: Effort & Inspection: normal respiratory effort Auscultation: clear to auscultation bilaterally Cardio: Rate: regular rate Rhythm: regular rhythm Other: S1-S2 present without murmur, rub, ectopy GI: Other: Abdomen soft, nondistended, nontender. Normoactive bowel sounds in all quadrants. Skin: General skin exam: normal color and no rashes or lesions noted Wounds: no wounds Neuro: Cranial nerves: Yes Equal, round and reactive pupils present Other: Patient alert and orientated to self, situation, year. Initially reported she was [place], however was able to correct. Mild dysarthria. Drift in the right upper extremity and very weak personal driver. 5+ in the left upper extremity and left lower extremity. 3+ in the right lower extremity. No sensory deficits. Extrem: General: normal to inspection Psych: Mental Status: mental status grossly normal Affect: normal affect Other: Good to fair insight and judgment, pleasant Objective Data Vital Signs Vital Signs: Vital Signs - 24 hr 05/29/25 08:00 05/29/25 12:00 05/29/25 13:51 Temperature Pulse Rate 71 78 Respiratory Rate Blood Pressure Pulse Oximetry Oxygen Delivery Room Air 05/29/25 14:00 05/29/25 16:00 05/29/25 20:00 Temperature 97.5 F L Pulse Rate 67 71 Respiratory Rate 18 Blood Pressure 99/59 L Pulse Oximetry 96 Oxygen Delivery Room Air 05/29/25 20:00 05/29/25 21:41 05/30/25 00:00 Temperature 97.7 F Pulse Rate 63 62 63 Respiratory Rate 16 Blood Pressure 110/60 Pulse Oximetry 96 Oxygen Delivery 05/30/25 04:00 05/30/25 05:52 Temperature 97.7 F Pulse Rate 62 63 Respiratory Rate 16 Blood Pressure 111/57 L Pulse Oximetry 97 Oxygen Delivery Intake/Output Intake/Output: Intake & Output 05/27/25 05/28/25 05/29/25 05/30/25 23:59 23:59 23:59 23:59 Intake Total 480 2210 400 Output Total 700 Balance -220 2210 400 Meds/Results Medications: Active Medications Generic Name Dose Route Start Last Admin Trade Name Freq PRN Reason Stop Dose Admin Acetaminophen 650 mg 05/28/25 15:04 Acetaminophen 325 Mg Tablet PO Q6H PRN Mild Pain (1-3) or Fever Hydrocodone Bitart/Acetaminophen 1 tab 05/28/25 14:56 05/29/25 20:21 Hydrocodone/Acetaminophen (*Crx) 5-325 Mg Tablet PO 1 tab Q4H PRN Administration Pain 4-10 Albuterol 2 puff 05/28/25 14:56 Albuterol Sulfate (*Sp) Aerosol 1 Puff INHALATION BID PRN Shortness Of Breath Or Wheezing Aspirin 81 mg 05/29/25 09:00 05/29/25 08:26 Aspirin 81 Mg Enteric Tablet PO 81 mg DAILY BEENA Administration Atorvastatin Calcium 40 mg 05/29/25 09:00 05/29/25 08:25 Atorvastatin 40 Mg Tablet PO 40 mg DAILY BEENA Administration Buspirone HCl 10 mg 05/28/25 21:00 05/29/25 20:21 Buspirone Hcl 10 Mg Tablet PO 10 mg Q12HR BEENA Administration Clopidogrel Bisulfate 75 mg 05/29/25 09:00 05/29/25 08:26 Clopidogrel Bisulfate 75 Mg Tablet PO 75 mg DAILY BEENA Administration Docusate Sodium 250 mg 05/28/25 17:00 05/29/25 17:05 Docusate Sodium Liq 100 Mg/10 Ml Udc PO Not Given BID BEENA Famotidine 20 mg 05/28/25 21:00 05/29/25 20:21 Famotidine 20 Mg Tablet PO 20 mg Q12HR BEENA Administration Fluticasone Propionate 1 spray 05/28/25 15:03 Fluticasone Propionate 0.05% Na Spr 16 Gm Btl (*Bkc) NASAL Q12H PRN Nasal Congestion Levofloxacin/Dextrose 750 mg in 150 mls @ 100 mls/hr 05/29/25 14:00 05/29/25 13:36 Levaquin 750 Mg/D5w 150 Ml IVPB 100 mls/hr Q24H BEENA Administration Midodrine 5 mg 05/28/25 17:00 05/29/25 17:00 Midodrine Hcl 2.5 Mg Tablet PO 5 mg TID BEENA Administration Olanzapine 10 mg 05/28/25 21:00 05/29/25 20:21 Olanzapine 5 Mg Tablet PO 10 mg Q12HR BEENA Administration Sertraline HCl 50 mg 05/29/25 09:00 05/29/25 08:26 Sertraline Hcl 50 Mg Tablet PO 50 mg DAILY BEENA Administration Tizanidine HCl 4 mg 05/28/25 14:56 Tizanidine Hcl 4 Mg Tablet PO Q12H PRN Muscle Spasticity Trazodone HCl 50 mg 05/28/25 14:56 Trazodone Hcl 50 Mg Tablet PO HS PRN Sleep Umeclidinium [place] 1 puff 05/29/25 08:00 05/29/25 08:56 Umeclidinium [place] 62.5 Mcg Ellipta INHALATION 1 puff DAILYRT BEENA Administration Venlafaxine HCl 150 mg 05/29/25 09:00 05/29/25 08:25 Venlafaxine Hcl Xr 75 Mg Cap.Er.24h PO 150 mg DAILY BEENA Administration Radiology Results: ITS Impressions Head CT 05/28/25 11:51 IMPRESSION: 1. Infarct left basal ganglia, probably subacute to chronic. 2. Otherwise no acute intracranial abnormality. Chest X-Ray 05/28/25 12:38 Impression: No acute cardiopulmonary abnormality. 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 No acute osseous abnormality. Quality VTE Prophylaxis VTE prophylaxis: mechanical ordered
[2025-05-30] MEDS: UMECLIDINIUM BROMIDE 62.5 MCG ELLIPTA 1 PUFF INHALATION (08:18)
[2025-05-30] MEDS: ASPIRIN 81 MG ENTERIC TABLET PO (08:28)
[2025-05-30] MEDS: CLOPIDOGREL BISULFATE 75 MG TABLET PO (08:29)
[2025-05-30] MEDS: FAMOTIDINE 20 MG TABLET PO ×2 (08:29→20:23)
[2025-05-30] MEDS: SERTRALINE HCL 50 MG TABLET PO (08:29)
[2025-05-30] MEDS: ATORVASTATIN 40 MG TABLET PO (08:29)
[2025-05-30] MEDS: VENLAFAXINE HCL XR 75 MG CAP.ER.24H 150 MG PO (08:29)
[2025-05-30] MEDS: MIDODRINE HCL 2.5 MG TABLET 5 MG PO ×3 (08:29→16:55)
[2025-05-30] MEDS: HYDROcodone/acetaminophen (*CRX) 5-325 MG TABLET 1 TAB PO ×3 (08:32→20:23)
[2025-05-31] VITALS (8 sets, daily range): BP systolic 113–140; BP diastolic 58–62; PULSE 61–94; RESP 14–18; TEMP 36.2–36.7; O2SAT 96–98
[2025-05-31] MEDS: UMECLIDINIUM BROMIDE 62.5 MCG ELLIPTA 1 PUFF INHALATION (07:36)
[2025-05-31] MEDS: ATORVASTATIN 40 MG TABLET PO (08:03)
[2025-05-31] MEDS: ASPIRIN 81 MG ENTERIC TABLET PO (08:03)
[2025-05-31] MEDS: MIDODRINE HCL 2.5 MG TABLET 5 MG PO ×3 (08:03→17:17)
[2025-05-31] MEDS: SERTRALINE HCL 50 MG TABLET PO (08:03)
[2025-05-31] MEDS: VENLAFAXINE HCL XR 75 MG CAP.ER.24H 150 MG PO (08:03)
[2025-05-31] MEDS: CLOPIDOGREL BISULFATE 75 MG TABLET PO (08:03)
[2025-05-31] MEDS: FAMOTIDINE 20 MG TABLET PO (08:03)
[2025-05-31 08:54] LABS: Hematocrit 37.4 % (37.0-47.0); Hemoglobin 12.4 g/dL (12.0-15.0); Mean Corpuscular HGB Conc 33.2 g/dl (32-36); Mean Corpuscular Hemoglobin 30.2 pg (26-34); Mean Corpuscular Volume 91.0 fl (80-100); Platelet Count Result 171 k/mm3 (150-375); Red Blood Count 4.11 M/mm3 (4.2-5.4); White Blood Count 5.0 K/mm3 (4.5-10.0)
[2025-05-31 09:15] LABS: Anion Gap 7 mmol/L (4-12); Blood Urea Nitrogen 9 mg/dL (7-17); Calcium 9.1 mg/dL (8.4-10.2); Carbon Dioxide 22 mmol/L (22-30); Chloride 110 mmol/L (98-107); Estimated CRCL calculation 69 ml/min; Estimated Glomerular Filt Rate > 60; Glucose 149 mg/dL (65-110); Potassium 3.9 mmol/L (3.4-5.0); Sodium 139 mmol/L (137-145)
[2025-05-31] MEDS: HYDROcodone/acetaminophen (*CRX) 5-325 MG TABLET 1 TAB PO (12:58)
--- NOTE | 2025-05-31 14:15 | P.DS_ITS ---
DS: Admitting Diagnosis Discharge Date 05/31 Admitting Diagnosis confusion, weakness DS: Discharge Diagnosis Discharge Diagnosis (1) AMS (altered mental status): Qualifiers: Altered mental status type: disorientation Qualified Code(s): R41.0 - Disorientation, unspecified Code(s): R41.82 - Altered mental status, unspecified Status: Acute (2) CVA (cerebral vascular accident): Qualifiers: CVA mechanism: thrombosis Precerebral and cerebral artery: unspecified cerebral artery Qualified Code(s): I63.30 - Cerebral infarction due to thrombosis of unspecified cerebral artery Code(s): I63.9 - Cerebral infarction, unspecified Status: Chronic (3) Urinary tract infection: Qualifiers: Hematuria presence: without hematuria Urinary tract infection type: acute cystitis Qualified Code(s): N30.00 - Acute cystitis without hematuria Code(s): N39.0 - Urinary tract infection, site not specified Status: Acute (4) HTN (hypertension): Qualifiers: Hypertension type: primary hypertension Qualified Code(s): I10 - Essential (primary) hypertension Code(s): I10 - Essential (primary) hypertension Status: Resolved (5) Seizures: Code(s): R56.9 - Unspecified convulsions Status: Chronic (6) Schizophrenia: Qualifiers: Schizophrenia type: unspecified Qualified Code(s): F20.9 - Schizophrenia, unspecified Code(s): F20.9 - Schizophrenia, unspecified Status: Chronic (7) HLD (hyperlipidemia): Qualifiers: Hyperlipidemia type: unspecified Qualified Code(s): E78.5 - Hyperlipidemia, unspecified Code(s): E78.5 - Hyperlipidemia, unspecified Status: Chronic (8) COPD (chronic obstructive pulmonary disease): Qualifiers: COPD type: emphysema Emphysema type: unspecified Qualified Code(s): J43.9 - Emphysema, unspecified Code(s): J44.9 - Chronic obstructive pulmonary disease, unspecified Status: Chronic DS: Summary Hospital Course Hospital Course: Misty Pinto is a 54-year-old female with past medical history significant for recent cerebrovascular accident, seizure disorder, coronary artery disease status post stent placement, lumbar spinal fusion, COPD/emphysema, hypertension, hyperlipidemia, schizophrenia, hepatitis C, peripheral neuropathy, Raynaud's phenomenon, and rheumatoid arthritis who presents from [facility] on May 28, 2025, with complaints of confusion and increased weakness. The patient was initially found down by family on May 14, 2025, and transported to [facility] where she presented with an NIH stroke scale of 9. Due to significant contrast allergy, initial CTA could not be performed. Her case was reviewed by neurology at [facility] who recommended against thrombolytic therapy as the patient did not meet criteria, with variable last well-known time reported by her three children. 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 No significant stenosis of the proximal internal carotid arteries was noted, and carotid and vertebral arteries were patent throughout their course. Incidental mild pulmonary emphysema was also observed. Following her stroke, the patient developed residual right-sided weakness, facial droop, and aphasia. She was initiated on dual antiplatelet ther apy with aspirin 81 mg and clopidogrel 75 mg daily, along with high-intensity statin therapy with atorvastatin 40 mg daily. She was discharged to [facility] on May 25, 2025. On May 28, 2025, three days after discharge to rehab, the patient presented via EMS with reports of worsening confusion, memory difficulties, and worsening slurred speech. She stated that her right-sided weakness remained essentially unchanged from her post-stroke baseline. Of note, the patient is followed by neurology in [place] and is currently undergoing evaluation for early dementia. Interestingly, later during her emergency department evaluation, the patient reported feeling back to baseline with resolution of the above mentioned symptoms. The patient has a history of seizure disorder but has been seizure- free for one year and is not currently on anticonvulsant therapy. No anticonvulsants were initiated following her May 14 stroke, and there is no clear eyewitness account of any seizure-like activity with this presentation. Initial vital signs at presentation showed temperature of 97.5?F, heart rate of 58 beats per minute, respiratory rate of 20 per minute, blood pressure of 105/72 mmHg, and oxygen saturation of 97% on room air. Laboratory evaluation revealed no leukocytosis or anemia, normal coagulation studies, sodium of 136 mEq/L with no significant electrolyte abnormalities, creatinine of 0.8 mg/dL with GFR greater than 60 mL/min, and initial troponin that was negative. Urinalysis was suspicious for urinary tract infection, and viral PCR panel was negative. Pt was started on levaquin and that will be continued- she needs 3 more doses. Electrocardiogram showed sinus bradycardia with rate of [address] head performed on May 28, 2025, demonstrated infarct of the left basal ganglia, probably subacute to chronic, with no acute intracranial abnormality. MRI brain revealed moderate-sized acute to subacute infarct involving significant portions of the left basal ganglia, a couple of small old infarcts in the bilateral cerebellar hemispheres, and mild scattered mesencephalic white matter T2 hyperintensity consistent with chronic small vessel ischemic disease. The patient's current medication regimen includes aspirin 81 mg daily, clopidogrel 75 mg daily, atorvastatin 40 mg daily, and midodrine 5 mg three times daily for symptomatic hypotension. She is also maintained on psychiatric medications including olanzapine, trazodone, and venlafaxine for management of her schizophrenia, which are prescribed by her psychiatrist. The patient ambulates with a walker or cane and has residual deficits from her stroke including right-sided weakness, speech disturbance with aphasia, and facial droop, which she reports as stable compared to her immediate post-stroke baseline. The differential diagnosis for this acute change in mental status includes possible stroke extension, metabolic encephalopathy potentially secondary to urinary tract infection given the suspicious urinalysis, possible seizure activity despite the absence of witnessed events, and medication effects from her multiple psychotropic agents. The patient is appropriately maintained on dual antiplatelet therapy and high- intensity statin for secondary stroke prevention. She continues to follow with neurology in [place] for ongoing dementia evaluation. Further management and disposition pending completion of inpatient workup. Status at Discharge Functional status at discharge: independent ambulation Overall status at discharge: patient is progressing back to baseline Time Spent with Patient Time attestation: Total time spent providing and/or coordinating discharge services: Time spent: Greater than 30 minutes Exam Narrative: she is back to her baseline neurologically Const: General: comfortable and no acute distress Other: , female, nontoxic appearance HENMT: Face/Nose/Sinus: Normal nares present Mouth: Yes moist mucous membranes Eyes: General: appearance normal, both eyes and all related structures Sclera: sclerae normal Pupils: Equal, round and reactive pupils present EOM: EOMs intact bilaterally Resp: Effort & Inspection: normal respiratory effort Auscultation: clear to auscultation bilaterally Cardio: Rate: regular rate Rhythm: regular rhythm Other: S1-S2 present without murmur, rub, ectopy GI: Other: Abdomen soft, nondistended, nontender. Normoactive bowel sounds in all quadrants. Skin: General skin exam: normal color and no rashes or lesions noted Wounds: no wounds Neuro: Cranial nerves: Yes Equal, round and reactive pupils present Other: Patient alert and orientated to self, situation, year. Initially reported she was Brandin, however was able to correct. Mild dysarthria. Drift in the right upper extremity and very weak import export agent. 5+ in the left upper extremity and left lower extremity. 3+ in the right lower extremity. No sensory deficits. Extrem: General: normal to inspection Psych: Mental Status: mental status grossly normal Affect: normal affect Other: Good to fair insight and judgment, pleasant DS: Data Data Completed and Pending Labs on day of discharge: Labs from last 24 hours 05/31/25 08:49 WBC 5.0 RBC 4.11 L Hgb 12.4 Hct 37.4 MCV 91.0 MCH 30.2 MCHC 33.2 RDW 14.0 Plt Count 171 MPV 11.6 H Sodium 139 Potassium 3.9 Chloride 110 H Carbon Dioxide 22 Anion Gap 7 BUN 9 D Creatinine 0.80 Estim Creat Clear Calc 69 Estimated GFR > 60 Glucose 149 H Calcium 9.1 Preliminary micro results at discharge 05/28/25 14:13 Blood Culture - Preliminary Blood 05/28/25 14:13 Blood Culture - Preliminary Blood Discharge Plan Discharge Attending physician on discharge: Kosta Mcintosh Consulting providers: Guillermo Salas Discharging Clinician: Janae Sales Patient Disposition: [facility] Activity: october shower Diet: heart healthy Discharge Instructions: Why You Were in the Hospital: You were admitted to the hospital because you had confusion and weakness after your recent stroke on May 14. We did tests including a CT scan and MRI of your brain, which showed that you had a stroke affecting the left side of your brain. We also found that you may have a urinary tract infection (bladder infection). Medications: Continue taking all of your medications exactly as prescribed: ? Aspirin 81 mg ? Take 1 tablet by mouth every day (prevents blood clots and another stroke) ? Plavix (clopidogrel) 75 mg ? Take 1 tablet by mouth every day (prevents blood clots and another stroke) ? Atorvastatin 40 mg ? Take 1 tablet by mouth every day (lowers cholesterol and prevents another stroke) ? Continue all other medications as prescribed by your doctors You need total of three more doses of antibiotics to complete the course for UTI. IMPORTANT: Do not stop taking aspirin or Plavix without talking to your doctor first. These medications are very important to prevent another stroke. Follow-Up Appointments: ? Follow up with your primary care doctor within 3-5 days after leaving the hospital ? Continue follow-up with your neurologist in [place] as scheduled ? Attend all scheduled physical therapy, occupational therapy, and speech therapy appointments Activity: ? Continue to use your walker or cane when walking to prevent falls ? Work with physical therapy and occupational therapy to improve your strength ? Rest when you feel tired ? Have someone with you when walking until you feel steady on your feet Warning Signs ? Call 911 or Go to the Emergency Room Immediately If You Have: ? Sudden weakness or numbness in your face, arm, or leg, especially on one side of your body ? Sudden confusion or trouble speaking or understanding speech ? Sudden trouble seeing in one or both eyes ? Sudden severe headache with no known cause ? Sudden trouble walking, dizziness, or loss of balance ? Seizure or convulsion ? Chest pain or trouble breathing Other Important Instructions: ? Drink plenty of water and finish all antibiotics if prescribed for your urinary tract infection ? Eat a healthy diet low in salt and saturated fat ? Take your medications at the same time every day ? Keep a list of all your medications with you at all times ? If you feel confused, have memory problems, or notice increased weakness, contact your doctor right away ? Do not drive until cleared by your doctor Questions? If you have any questions or concerns, call your primary care doctor or neurologist. If you cannot reach them and have an urgent concern, call the [facility] or go to the emergency room. Remember: You had a stroke, and taking your medications every day is very important to prevent another stroke. Do not miss doses of your aspirin, Plavix, or atorvastatin. Patient Instructions: Aspirin (By mouth) Patient Language: Nauruan Follow-up/Referrals: Ankush,Shad Tsang MD [Primary Care Provider, Unknown] - 1 Week Guillermo Salas MD [Physician, Neurology] - 2 Weeks Discharge Medications: New levofloxacin 750 mg tablet 750 mg PO DAILY Qty: 3 0RF Continued atorvastatin 40 mg tablet 40 mg PO DAILY sertraline 100 mg tablet 50 mg PO DAILY venlafaxine 150 mg capsule,extended release 24hr 150 mg PO DAILY olanzapine 10 mg tablet 10 mg PO BID clopidogrel 75 mg tablet 75 mg PO DAILY famotidine 20 mg tablet 20 mg PO BID buspirone 10 mg tablet 10 mg PO BID fluticasone propionate 50 mcg/actuation spray,suspension 50 mcg INTRANASAL BID PRN (Reason: nasal congestion) Rx Instructions: 1 Hay by nasal route 2 times daily as needed for rhinitis or allergies fluticasone propionate 50 mcg/actuation spray,suspension 1 spray intranasal BID PRN (Reason: nasal congestion) Rx Instructions: administer into each nostril midodrine 5 mg tablet 5 mg PO TID Rx Instructions: do not give last dose of day after 6PM or within 4 hrs of bedtime tiotropium bromide 2.5 mcg/actuation mist 2 puff inhalation DAILY docusate sodium 250 mg capsule 250 mg PO BID hydrocodone-acetaminophen 5-325 mg tablet 1 tablet PO Q4H PRN (Reason: pain) tizanidine 4 mg tablet 4 mg PO BID PRN (Reason: muscle spasticity) trazodone 50 mg tablet 50 mg PO HS PRN (Reason: sleep) albuterol sulfate [Ventolin HFA] 90 mcg/actuation HFA aerosol inhaler 2 puff inhalation BID PRN (Reason: shortness of breath or wheezing) aspirin 81 mg tablet,delayed release (DR/EC) 81 mg PO DAILY Date of admission: 05/29/25 16:05 Primary Care Provider: Ankush,Shad Tsang Admitting Provider: Luis Alberto Ch Attending physician on admission: Luis Alberto Ch Condition: Stable Quality VTE Prophylaxis VTE prophylaxis: mechanical ordered
--- NOTE | 2025-05-31 15:06 | PCPTNOTE ---
Refused, stated she is not willing to participate in any therapy at all at this time.
--- NOTE | 2025-05-31 15:45 | WPDNEURCNPN ---
Consult date: 05/31/25 HPI: Misty Pinto is a 54 year old female Admitted to the hospital for the complaints of change in the mental status and with the history of previous stroke. Patient has been receiving aspirin 81mg daily and Plavix 75mg daily with atorvastatin 40mg daily also mitral drain 5mg 3 times a day in addition to Zyprexa, trazodone, Effexor with the ongoing history of schizophrenia patient had been found to have left MCA occlusion on CTA of the head and neck in the past with documented abnormal MRI, documented nicotine dependence chronic obstructive pulmonary disease, hypertension, schizophrenia, at this stage her CBC is normal, BMP is almost normal except the blood sugar of 149, MRI has been repeated which document moderate size acute to subacute infarct involving the significant portion of the left basal ganglia in addition to small old infarct at the bilateral cerebellar hemisphere and mild scattered white matter hyperintense consistent with the chronic small-vessel ischemic disease. Patient is receiving aspirin 81mg daily, atorvastatin 40mg daily, clopidogrel 75mg daily, in addition to her other psych medications which include venlafaxine ER 150mg daily, trazodone 50mg HS p.r.n. sertraline 50mg daily, olanzapine 10mg b.i.d., midodrine 5mg 3 times a day for orthostatic hypotension, and at this stage she is being discharge and will be followed by the neurology in [place]. Her examination remains unchanged [facility] Past Medical History Medical History (Updated 05/28/25 @ 15:04 by Erin Germain APRN) Raynaud's phenomenon Rheumatoid arthritis Peripheral neuropathy CAD (coronary artery disease) Hepatitis C COPD (chronic obstructive pulmonary disease) HLD (hyperlipidemia) PTSD (post-traumatic stress disorder) Bipolar disorder Anxiety HTN (hypertension) Seizures CVA (cerebral vascular accident) 05/14: left MCA M1 occlusion with partial occlusion, left MCA M2 segment read as sub occlusive thrombosis vs collateral flow. 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 No significant stenosis involving proximal ICAs Surgical History Surgical History (Updated 05/28/25 @ 14:45 by Erin Germain APRN) History of lumbar fusion History of heart artery stent Family History Family History (Updated 05/28/25 @ 15:30 by Myrna Frazier RN) Mother Cerebrovascular accident Father Hypertension Sibling Cancer Social History Social History Smoking packs per day: 1 Smoking cigarettes per day: 20.0 Years smoked: 30 Smoking pack-years: 30.00 Smoking status: Former smoker Tobacco type: cigarettes Second hand tobacco smoke exposure: Yes Smoking end date: 05/23/25 Alcohol intake: former Substance use: never Substance use type: does not use, former substance user, crack/cocaine, heroin and amphetamines Lack of Transportation: No Lack of Food: Never True Current Housing: I Have Housing Concerned About Future Housing: No Difficulty Paying Gas/Electric Bills: No Difficulty Paying for Meds: YES Currently Unemployed: No Education: High School Diploma/GED Difficulty w/ Childcare or Family Care: No Spiritual care concerns: No Meds Home Medications and Allergies Home Medications ?Medication ?Instructions ?Recorded ?Confirmed ?Type atorvastatin 40 mg tablet 40 mg PO DAILY 04/21/22 05/28/25 History buspirone 10 mg tablet 10 mg PO BID 04/21/22 05/28/25 History clopidogrel 75 mg tablet 75 mg PO DAILY 04/21/22 05/28/25 History famotidine 20 mg tablet 20 mg PO BID 04/21/22 05/28/25 History fluticasone propionate 50 50 mcg intranasal BID PRN nasal 04/21/22 05/28/25 History mcg/actuation nasal congestion spray,suspension olanzapine 10 mg tablet 10 mg PO BID 04/21/22 05/28/25 History sertraline 100 mg tablet 50 mg PO DAILY 04/21/22 05/28/25 History venlafaxine 150 mg 150 mg PO DAILY 04/21/22 05/28/25 History capsule,extended release 24 hr albuterol sulfate 90 mcg/actuation 2 puff inhalation BID PRN 05/24/25 05/28/25 History aerosol inhaler (Ventolin HFA) shortness of breath or wheezing docusate sodium 250 mg capsule 250 mg PO BID 05/24/25 05/28/25 History hydrocodone 5 mg-acetaminophen 325 1 tablet PO Q4H PRN pain 05/24/25 05/28/25 History mg tablet tizanidine 4 mg tablet 4 mg PO BID PRN muscle spasticity 05/24/25 05/28/25 History trazodone 50 mg tablet 50 mg PO HS PRN sleep 05/24/25 05/28/25 History aspirin 81 mg tablet,delayed 81 mg PO DAILY 05/26/25 05/28/25 History release fluticasone propionate 50 1 spray intranasal BID PRN nasal 05/28/25 05/28/25 History mcg/actuation nasal congestion spray,suspension midodrine 5 mg tablet 5 mg PO TID 05/28/25 05/28/25 History tiotropium bromide 2.5 2 puff inhalation DAILY 05/28/25 05/28/25 History mcg/actuation mist for inhalation Allergies Allergy/AdvReac Type Severity Reaction Status Date / Time gabapentin Allergy Intermediate SEIZURES Verified 05/28/25 15:08 Penicillins Allergy Mild Unknown Verified 05/28/25 15:08 Iodine and Iodide Containing Allergy Difficulty Verified 05/28/25 15:08 Produc Breathing Vital Signs Vital Signs - 24 hr 05/30/25 16:00 05/30/25 20:00 05/30/25 20:00 Temperature Pulse Rate 69 78 Respiratory Rate Blood Pressure Pulse Oximetry Oxygen Delivery Room Air 05/30/25 20:03 05/31/25 00:00 05/31/25 04:00 Temperature 36.4 C L Pulse Rate 67 61 62 Respiratory Rate 18 Blood Pressure 94/62 L Pulse Oximetry 95 Oxygen Delivery 05/31/25 04:44 05/31/25 07:36 05/31/25 07:36 Temperature 36.2 C L Pulse Rate 65 65 Respiratory Rate 18 16 Blood Pressure 114/62 Pulse Oximetry 97 98 Oxygen Delivery Room Air 05/31/25 08:00 05/31/25 08:00 05/31/25 12:54 Temperature Pulse Rate 66 Respiratory Rate Blood Pressure 113/58 L Pulse Oximetry Oxygen Delivery Room Air 05/31/25 14:00 Temperature 36.7 C Pulse Rate 68 Respiratory Rate 14 Blood Pressure 140/60 Pulse Oximetry 96 Oxygen Delivery Results Labs 05/31/25 08:49 05/31/25 08:49 Labs: Short CBC 05/31/25 Range/Units 08:49 WBC 5.0 (4.5-10.0) K/mm3 Hgb 12.4 (12.0-15.0) g/dL Hct 37.4 (37.0-47.0) % Plt Count 171 (150-375) k/mm3 BMP 05/31/25 08:49 Sodium 139 Potassium 3.9 Chloride 110 H Carbon Dioxide 22 BUN 9 D Creatinine 0.80 Glucose 149 H Calcium 9.1
== END 2025-05-31 17:45 | DRG 65 ==
LOC: ANHED 12:29 → ANH2MED 14:09
PROVIDERS: Nurse Practitioner; Student in an Organized Health Care Education/Training Program; Admitting Provider General Practice; Emergency Provider Emergency Medicine; PCP Family Medicine; Visit Provider Internal Medicine
DX: I63.512 Cerebral infarction due to unspecified occlusion or stenosis of left middle cerebral artery (principal); N39.0 Urinary tract infection, site not specified; I73.00 Raynaud's syndrome without gangrene; I25.10 Atherosclerotic heart disease of native coronary artery without angina pectoris; I10 Essential (primary) hypertension; J44.9 Chronic obstructive pulmonary disease, unspecified; E78.5 Hyperlipidemia, unspecified; M06.9 Rheumatoid arthritis, unspecified; B19.20 Unspecified viral hepatitis C without hepatic coma; G62.9 Polyneuropathy, unspecified; G40.909 Epilepsy, unspecified, not intractable, without status epilepticus; F31.9 Bipolar disorder, unspecified; F41.9 Anxiety disorder, unspecified; F43.10 Post-traumatic stress disorder, unspecified; Z20.822 Contact with and (suspected) exposure to COVID-19; I69.320 Aphasia following cerebral infarction; I69.392 Facial weakness following cerebral infarction; I69.331 Monoplegia of upper limb following cerebral infarction affecting right dominant side; Z79.02 Long term (current) use of antithrombotics/antiplatelets; Z79.82 Long term (current) use of aspirin; Z98.1 Arthrodesis status; Z95.5 Presence of coronary angioplasty implant and graft; Z87.891 Personal history of nicotine dependence; M25.511 Pain in right shoulder
CPT/HCPCS: 36415; 70450; 70551; 71045; 73030; 80048; 80053; 81001; 82948; 84484; 85025; 85027; 85055; 85610; 85730; 87040; 87086; 87186; 87637; 93005; 94640; 96361; 96375; 97161; 97166; 97530; 99285; A4565; A9270; G0378; J1956; J7120